=== PATIENT | female | born 1950 | race Caucasian/White ===

== ENCOUNTER 2019-12-06 07:45 | Outpatient (CLI) | payer MEDICARE, SELFPAY ==
--- NOTE | 2019-12-06 07:50 | MM_ITS ---
WS: [id number] BILATERAL SCREENING DIGITAL MAMMOGRAM WITH CAD HISTORY: SCREENING COMPARISON: 06/14/2013 Bilateral CC and MLO views submitted. Computer aided detection analyzed. Breast composition: There are scattered areas of fibroglandular density. No suspicious masses, microc alcifications or architectural distortion. MM/[place] [id number] IMPRESSION: BI-RADS: 1-Negative FOLLOW UP: 1 Year Follow-up
== END 2019-12-06 07:46 | disposition home or self-care (01) ==
LOC: RADSHAW 07:49
PROVIDERS: PCP Family Medicine; Visit Provider Family Medicine
DX: Z12.31 Encounter for screening mammogram for malignant neoplasm of breast (principal)
CPT/HCPCS: 77067

== ENCOUNTER → 2020-04-04 16:02 | Outpatient (BNVA) | payer MEDICARE, SELFPAY | PROVIDERS: PCP Family Medicine; Visit Provider Nurse Practitioner Women's Health | DX: N90.3 Dysplasia of vulva, unspecified (principal); N76.3 Subacute and chronic vulvitis | CPT/HCPCS: 88305 ==

== ENCOUNTER 2020-08-08 13:11 | Outpatient (CLI) | payer MEDICARE, SELFPAY ==
--- NOTE | 2020-08-08 13:34 | XRR_ITS ---
PROCEDURE INFORMATION: Exam: XR Right Knee Exam date and time: 08/08/2020 1:57 PM Age: 70 years old Clinical indication: Knee; Right; Prior surgery; Surgery type: Meniscal tear; Patient HX: Fall in February, no pain then; Additional info: R knee pain TECHNIQUE: Imaging protocol: XR Right knee. Views: 3 views. COMPARISON: No relevant prior studies available. FINDINGS: Bones/joints: Mild degenerative change. No acute bony injury or malalignment. Soft tissues: Unremarkable. XR/XR knee RT 3V* [id number] IMPRESSION: Mild degenerative change.
== END 2020-08-08 13:12 | disposition home or self-care (01) ==
LOC: RAD 13:25
PROVIDERS: PCP Family Medicine; Visit Provider Family Medicine
DX: M25.561 Pain in right knee (principal)
CPT/HCPCS: 73562

== ENCOUNTER 2020-11-02 10:09 | Outpatient (CLI) | payer MEDICARE, SELFPAY ==
--- NOTE | 2020-11-02 11:00 | MR_ITS ---
WS: [id number] MRI LEFT KNEE HISTORY: LEFT KNEE PAIN;ARTHRITIS COMPARISON: None available. Anterior cruciate ligament: Small amount of fluid around the ACL but no tear. Posterior cruciate ligament: Small amount of fluid around the PCL but no tear. Medial collateral ligament: Increased signal around the MCL distal to the joint. Tear within the deep MCL adjacent to the femoral condyle. The distal superficial MCL is intact. Posterior lateral corner structures: Intact. Medial menisci: Horizontal tear in the posterior horn extends to the inferior articular surface near the free edge. Lateral meniscus: Intact. Normal signal, size and shape. Extensor mechanism: Distal quadriceps tendon and patellar tendons are intact. Fluid and soft tissue: Small suprapatellar joint effusion. No Wills's cyst. Osseous and articular structures: Patellofemoral compartment: Normal cartilage. No subchondral edema. Medial compartment: Very mild narrowing of the medial compartment. Moderate, near diffuse fissuring a nd thinning of the cartilage. Marrow edema in the posterior medial femoral condyle along the nonweigh tbearing surface. Focal osteochondral lesion along the nonweightbearing surface. This is closely asso ciated with the meniscal tear and increased fluid. There is increase fluid extending along the tendon s of the medial knee which may be bursal fluid. Lateral compartment: Minimal narrowing. No subchondral lesions. Small amount of fluid near the popliteal tendon. MR/MR knee LT wo con* [id number] IMPRESSION: 1. Horizontal tear posterior horn medial meniscus. 2. Marrow edema in the posterior nonweightbearing surface of the medial femora l condyle with an associated small osteochondral defect. Closely associated wit h the meniscal tear. 3. Moderate-sized joint effusion. 4. Mild MCL sprain with incomplete tear involving the deep MCL above the knee joint.
== END 2020-11-02 10:10 | disposition home or self-care (01) ==
LOC: RADSHAW 10:13
PROVIDERS: PCP Family Medicine; Visit Provider Family Medicine
DX: M25.562 Pain in left knee (principal); M19.90 Unspecified osteoarthritis, unspecified site; S83.242A Other tear of medial meniscus, current injury, left knee, initial encounter; S83.412A Sprain of medial collateral ligament of left knee, initial encounter; X58.XXXA Exposure to other specified factors, initial encounter; M25.462 Effusion, left knee; R60.0 Localized edema
CPT/HCPCS: 73721

== ENCOUNTER → 2020-12-04 10:58 | Outpatient (BNVA) | payer MEDICARE, SELFPAY | PROVIDERS: PCP Family Medicine; Referring Provider Family Medicine; Visit Provider Specialist | DX: M25.562 Pain in left knee (principal); Z46.89 Encounter for fitting and adjustment of other specified devices; S83.412D Sprain of medial collateral ligament of left knee, subsequent encounter; X58.XXXD Exposure to other specified factors, subsequent encounter | CPT/HCPCS: 73560; 73565; 97760; L1812 ==

== ENCOUNTER 2020-12-04 14:45 | Outpatient (CLI) | payer MEDICARE, SELFPAY | END 2020-12-04 14:46 | disposition home or self-care (01) | LOC: SPT 14:46 | PROVIDERS: PCP Family Medicine; Visit Provider Specialist | DX: Z46.89 Encounter for fitting and adjustment of other specified devices (principal); S83.412D Sprain of medial collateral ligament of left knee, subsequent encounter; X58.XXXD Exposure to other specified factors, subsequent encounter | CPT/HCPCS: 97760; L1812 ==

== ENCOUNTER → 2020-12-25 09:05 | Outpatient (BNVA) | payer MEDICARE, SELFPAY | PROVIDERS: PCP Family Medicine; Visit Provider Specialist | DX: S83.411A Sprain of medial collateral ligament of right knee, initial encounter (principal); M25.561 Pain in right knee; M25.562 Pain in left knee; W19.XXXA Unspecified fall, initial encounter | CPT/HCPCS: 73560; 73565 ==

== ENCOUNTER 2021-01-10 15:32 | Outpatient (CLI) | payer MEDICARE, SELFPAY ==
--- NOTE | 2021-01-10 16:00 | MR_ITS ---
WS: [id number] MRI RIGHT KNEE HISTORY: M25.569 - Pain in unspecified knee, prior injury. Remote medial meniscal tear repair. COMPARISON: 11/06/2010 Anterior cruciate ligament: Mild chronic thinning of the ACL. No acute tear. Posterior cruciate ligament: Intact. Medial collateral ligament: Fluid adjacent to the MCL, greatest below the joint line. Very similar fi ndings as compared to the prior examination from 2010. No new tear. Posterior lateral corner structures: Intact. Medial menisci: Intrasubstance degeneration in the posterior horn. There is mild fraying along the ar ticular surfaces but no definite tear. Lateral meniscus: Intact. Normal signal, size and shape. Extensor mechanism: Distal quadriceps tendon and patellar tendons are intact. Fluid and soft tissue: Small amount of fluid surrounding the knee. No Wills's cyst. Osseous and articular structures: Patellofemoral compartment: Normal. Medial compartment: Severe narrowing medial compartment with loss of cartilage involving a large port ion of the weightbearing surface of the femoral condyle and tibial plateau. There is extensive marrow edema along both sides of the joint. There is enhancement additional defect in the cartilage along t he posterior nonweightbearing surface of the medial femoral condyle with subchondral edema. Lateral compartment: Mild narrowing of lateral compartment. No full-thickness cartilage defects or ma rrow edema. MR/MR knee RT wo con* [id number] IMPRESSION: 1. Moderate intrasubstance degeneration in the posterior horn medial meniscus. No definite tear identified. 2. Large amount of marrow edema in the medial femoral condyle and tibial plate au with extensive loss of cartilage and joint space narrowing. 3. Additional cartilage defect with subchondral edema in the posterior nonweig htbearing surface medial femoral condyle. 4. Mild sprain MCL.
== END 2021-01-10 15:33 | disposition home or self-care (01) ==
LOC: RADSHAW 15:34
PROVIDERS: PCP Family Medicine; Visit Provider Specialist
DX: S83.411A Sprain of medial collateral ligament of right knee, initial encounter (principal); X58.XXXA Exposure to other specified factors, initial encounter; R60.0 Localized edema
CPT/HCPCS: 73721

== ENCOUNTER → 2021-05-23 14:45 | Outpatient (BNVA) | payer MEDICARE, SELFPAY | PROVIDERS: PCP Family Medicine; Visit Provider Specialist | DX: M17.11 Unilateral primary osteoarthritis, right knee (principal); M25.561 Pain in right knee; M25.461 Effusion, right knee | CPT/HCPCS: 73560; 73565 ==

== ENCOUNTER → 2021-08-23 09:55 | Outpatient (BNVA) | payer MEDICARE, SELFPAY | PROVIDERS: PCP Family Medicine; Visit Provider Specialist | DX: M17.11 Unilateral primary osteoarthritis, right knee (principal) | CPT/HCPCS: 20610; 99213; 99214; J1100; J2795; J3301 ==

== ENCOUNTER → 2021-09-26 14:27 | Outpatient (BNVA) | payer MEDICARE, SELFPAY | PROVIDERS: PCP Family Medicine; Visit Provider Specialist | DX: M17.11 Unilateral primary osteoarthritis, right knee (principal) | CPT/HCPCS: 99214 ==

== ENCOUNTER 2021-10-09 13:40 | Observation (INO) | payer MEDICARE, SELFPAY ==
--- NOTE | 2021-10-05 08:21 | ECG_ITS ---
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 Measurements Intervals [place] Rate: 62 P: 61 ND: 174 QRS: 25 QRSD: 89 T: 62 QT: 411 QTc: 418 Interpretive Statements SINUS RHYTHM WITH OCCASIONAL VENTRICULAR PREMATURE COMPLEXES No previous ECG available for comparison Electronically Signed On 10-05-2021 17:02:46 CDT by Salvador Costello M.D. [id number]
[2021-10-05 08:36] VITALS: BMI 29.7
[2021-10-05 08:56] LABS: Add Urine Microscopic? NO
[2021-10-05 09:08] LABS: Urine Appearance Clear (CLEAR); Urine Color Yellow (Yellow); pH Urine 7 (5-7)
[2021-10-05 09:09] LABS: Bilirubin Urine Neg (Negative); Blood Urine Neg (Negative); Glucose Urine UA Norm (Normal); Ketones Urine Negative (Negative); Leukocyte Esterase Urine Negative (Negative); Nitrate Urine Negative (Negative); Protein Urine Neg (Negative); Urobilinogen Urine Norm (Negative)
[2021-10-05 09:10] LABS: Basophils # 0.1 10^3/uL (0.0-0.1); Basophils % 0.9 %; Eosinophils # 0.1 10^3/uL (0.0-0.8); Eosinophils % 1.1 %; Hematocrit 44.6 % (37.0-47.0); Hemoglobin 14.5 g/dL (11.5-15.3); Lymphocytes % 31.4 %; Mean Corpuscular HGB Conc 32.5 g/dL (30.0-36.0); Mean Corpuscular Hemoglobin 29.6 pg (28.0-34.0); Monocytes # 0.5 10^3/uL (0.2-0.9); Monocytes % 8.2 %; Neutrophils # 3.76 10^3/uL (1.8-7.7); Neutrophils % 58.2 %; Nucleated Red Blood Cells % 0 %; Platelet Count 205 10^3/cmm (130-400); Red Cell Distribution Width 12.6 % (12.1-15.1); White Blood Count 6.5 10^3/uL (4.0-10.0)
--- NOTE | 2021-10-05 09:17 | P.ANESASSM_ITS ---
Pre-Anesthetic Assessment Height/Weight: Height 1.68 m Weight 83.461 kg Preop Diagnosis: Severe degenerative osteoarthritis right knee Operation Date: 10/09/21 07:00 Proposed Procedures p RIGHT TOTAL KNEE ARHTROPLASTY 33293,M17.10(Right) - Yasmine Crain MD Familial anesthetic complications: None Social No alcohol and No tobacco Exam alert, oriented x 3, clear to auscultation bilaterally and regular rate & rhythm Airway Mallampati: Class IV Dentition: full Comments: Comments: poor mouth opening Pulmonary None reported CV/HEM None reported None reported Hepatic None reported GI None reported Metabolic None reported Musc/skel Osteoarthritis/DJD Neuropsych None reported Anesthetic Plan ASA status: 1 Anesthesia: Regional (specify below) Other: spinal + Adductor Risk of > 500 ml blood loss (7ml/kg in children): Yes, adequate IV access and fluids planned Medications/Allergies Home Medications Medication Instructions Recorded Confirmed Last Taken Type alprazolam 0.25 mg tablet 0.25 mg PO TID PRN 02/14/20 10/05/21 Unknown History fluoxetine 10 mg capsule 10 mg PO DAILY 02/14/20 10/05/21 Unknown History prednisolone acetate 1 % eye 1 drp OPHTHALMIC (EYE) BID 09/26/21 10/05/21 Unknown History drops,suspension Allergies Allergy/AdvReac Type Severity Reaction Status Date / Time methotrexate Allergy hives Verified 10/05/21 08:34 [facility] Anesthesia Medical History History of nonmelanoma skin cancer No pertinent past medical history neghx: htn,dm,thyroid,dvt/pe Surgical History Hx of tubal ligation (~1976) Family History Denies family history of Colon cancer Ovarian cancer Diabetes Hypercholesteremia Breast cancer Hypertension Uterine cancer Thyroid disease Stroke Social History Smoking and tobacco status: never smoked Additional social history: - Tobacco use: denies Alcohol use: denies Drug use: denies Data Anesthesia : 10/05/21 08:55 10/05/21 08:55 Short CBC 10/05/21 Range/Units 08:55 WBC 6.5 (4.0-10.0) 10^3/uL Hgb 14.5 (11.5-15.3) g/dL Hct 44.6 (37.0-47.0) % MCV 91.0 (81-99) fl Plt Count 205 (130-400) 10^3/cmm Neut % (Auto) 58.2 % Neut # (Auto) 3.76 (1.8-7.7) 10^3/uL Urine 10/05/21 Range/Units 08:43 Urine Color Yellow (Yellow) Urine Appearance Clear (CLEAR) Urine pH 7 (5-7) Ur Specific [place] 1.010 (1.005-1.030) Urine Protein Neg (Negative) Urine Glucose (UA) Norm (Normal) Urine Ketones Negative (Negative) Urine Nitrate Negative (Negative) Urine Bilirubin Neg (Negative) Ur Leukocyte Esterase Negative (Negative) Cardiac Studies: No Data to Display
[2021-10-05 09:34] LABS: Alanine Aminotransferase 13 U/L (0-33); Albumin Level 4.3 g/dL (3.5-5.2); Alkaline Phosphatase 72 IU/L (35-105); Aspartate Amino Transferase 18 U/L (0-32); Blood Urea Nitrogen 12 mg/dL (8-23); Calcium 9.3 mg/dL (8.5-10.5); Carbon Dioxide 25 mmol/L (22-29); Chloride 103 mmol/L (98-107); Globulin 2.5 g/dL (1.3-4.6); Glomerular Filtration Rate 70.9 mL/min (90-130); Glucose 86 mg/dL (65-115); Osmolality Calculated 285 mOsm/kg (285-295); Sodium 138 mmol/L (136-145); Total Bilirubin 1.4 mg/dL (0.15-1.2); Total Protein 6.8 g/dL (6.6-8.7)
[2021-10-05 09:42] LABS: Anion Gap 14.3 (5-19); Potassium 4.3 mmol/L (3.5-5.1)
[2021-10-05 09:50] LABS: Charge for UA Resulting for Rev
[2021-10-09] VITALS (19 sets, daily range): BP systolic 107–167; BP diastolic 57–81; PULSE 50–78; RESP 12–18; TEMP 36.1–37.1; O2SAT 94–98
[2021-10-09] MEDS: acetaminophen 1,000 MG/100 ML PIGGYBACK 400 MG IV ×3 (05:53→20:21)
[2021-10-09] MEDS: sodium chloride 0.9% 1,000 ML 30 ML IV (05:55)
[2021-10-09] MEDS: CELEcoxib 200 mg Capsule 400 MG PO (05:56)
--- NOTE | 2021-10-09 06:48 | P.ANESUD_ITS ---
Pre-Anesthetic Update Pre-Anesthetic Assessment: Date of Surgery/Procedure: 10/09/21 Preop Evelyn gnosis: Severe degenerative osteoarthritis right knee Proposed Procedure: Operation Date: 10/09/21 07:00 Proposed Procedures p RIGHT TOTAL KNEE ARHTROPLASTY 60093,M17.10(Right) - Yasmine Crain MD Any changes to Pre-Anesthetic Assessment?: No Last Intake: Intake Last Liquid Date 10/09/21 Last Liquid Time 04:30 Last Solid Date 10/09/21 Last Solid Time 19:30 Vitals: Temperature 98.8 F 10/09/21 05:39 Temperature Source Temporal Artery S can 10/09/21 05:39 Pulse Rate 70 10/09/21 05:39 Respiratory Rate 18 10/09/21 05:39 Blood Pressure 134/75 10/09/21 05:39 Blood Pressure Cayla n 94 10/09/21 05:39 Pulse Oximetry 95 10/09/21 05:39 Oxygen Delivery Me thod 10/09/21 05:45 Exam: Pre-Anes Outpt Exam: alert, oriented x 3, clear to auscultation bilaterally and regular rate & rhythm Cardiac Studies: No Data to Display
--- NOTE | 2021-10-09 06:55 | P.HPUD_ITS ---
Surgery/Procedure H&P Update DATE OF PROCEDURE: October 09, 2021 DATE H&P PERFORMED: 09/26/21 H&P UPDATE INFORMATION: I have reviewed H&P completed within last 30 days, I have examined patient prior to procedure, No changes to prior documentation and H&P is in [facility] EMR on date indicated PREOP DIAGNOSIS: Severe degenerative osteoarthritis right knee PLANNED PROCEDURE: Operation Date: 10/09/21 07:00 Proposed Procedures p RIGHT TOTAL KNEE ARHTROPLASTY 23297,M17.10(Right) - Yasmine Crain MD Related Problem List Diagnoses (1) Osteoarthritis of right knee: Qualifiers: Osteoarthritis type: primary Qualified Code(s): M17.11 - Unilateral primary osteoarthritis, right knee
[2021-10-09] MEDS: vancomycin 1,000 MG SDV 1000 MG XX (08:15)
[2021-10-09] MEDS: tranexamic acid 1,000 mg/10mL SDV 1000 MG IRRIGATION (08:16)
[2021-10-09] MEDS: ceFAZolin 1,000 mg SDV 1000 MG IRRIGATION (08:18)
[2021-10-09] MEDS: sodium chloride 0.9% 100 mL Bag 50 ML XX (08:21)
--- NOTE | 2021-10-09 10:19 | XRR_ITS ---
PROCEDURE INFORMATION: Exam: XR Right Knee Exam date and time: 10/09/2021 10:24 AM Age: 71 years old Clinical indication: Device placement; Joint replacement hardware; Prior surgery; Surgery date: Post-operative (0-2 days); Surgery type: Tka; Additional info: S/P tka TECHNIQUE: Imaging protocol: XR Right knee. Views: 1 or 2 views. COMPARISON: CR XR knees AP WB w RT lmt ORTH 05/23/2021 2:53 PM FINDINGS: Bones/joints: Right total knee arthroplasty without periprosthetic fracture or osteolysis. No acute fracture or malalignment. Small joint effusion with expected postoperative intra-articular emphysema. Soft tissues: Expected postoperative subcutaneous emphysema. XR/XR knee RT 1-2V [id number] IMPRESSION: 1. Right total knee arthroplasty without periprosthetic fracture or osteolysis. 2. No acute fracture or malalignment. 3. Small joint effusion.
--- NOTE | 2021-10-09 10:24 | ANE.PACU2 ---
Inpatient post-anesthesia follow up: Airway intact: Yes Vital signs: Temperature 97.4 F Pulse Rate 56 Respiratory Rate 16 Blood Pressure 129/75 Pulse Oximetry 97 Oxygen Delivery Me thod Room Air Oxygen Flow Rate Fraction of Inspir ed Oxygen Hydration adequate: Yes Nausea and vomiting: No Pain level: 1 Mental status: Baseline
--- NOTE | 2021-10-09 10:25 | ANES.PROC ---
Anesthesia Procedures Procedure/Date: 10/09/21 Nerve Block ^: Nerve Block 1: Main Anesthesia: spinal anesthesia block Time Out Performed: Yes Consent: requested by attending/covering physician, from patient, risks and benefits reviewed and patient agrees to proceed Nerve block location: adductor canal (right) Anesthesia monitors applied: pulse oximetry, EKG, BP cuff and oxygen Nerve block position: supine Anesthetic Used: ropivicaine 0.5% Amount of anesthesia used (mL): 20 Ultrasound used to: recognize landmarks Nerve Stimulator Used?: No Interscalene/Femoral BLK: 4 stimuplex 21 g needle used for position and inplane approach Injection: neg aspiration of heme Patient Tolerated Procedure: well Complications: none
--- NOTE | 2021-10-09 10:34 | P.OP_ITS ---
Operative Report Date of procedure: October 09, 2021 Pre-op diagnosis: Severe degenerative osteoarthritis right knee Post-op diagnosis: Severe degenerative osteoarthritis right knee Post-op findings: Severe degenerative osteoarthritic change right knee with complete cartilage obliteration of femoral condyle Procedure done: Right total knee arthroplasty Implants: The [place] total knee system with a size 4 triathlon beaded posterior stabilized femur right, a triathlon titanium tibial component size 3 beaded, a triathlon X3 posterior stabilized tibial bearing insert size 3 X 13 mm and a beaded triathlon titanium asymmetric patella size 35 x 10 mm Specimens removed/disposition: Bone, disposed of Surgeon: Yasmine Crain Coat Ironer Hand: [facility] operating room technicians Anesthesia: MAC (With spinal, ASA 2) Estimated blood loss (mL): 25 Tourniquet time (min): 105 (At 250 mmHg) IV fluids (mL): 800 Urine output (mL): 150 Complications: None Brief History: This is an established 71 year old female patient here today for right total knee arthroplasty. The patient has had significant conservative therapies with lack of benefit. Date of last injection was 08/23/2021. She rates her pain 5/10 routinely. As injection therapy was less successful for her, discussion was undertaken at the office visit on September 26, and the patient elected to proceed with total knee arthroplasty. Risks and complications were discussed with her. Consents were signed and questions were answered. Procedure: The patient was brought to the operating theater, and after undergoing adequate spinal anesthesia supplemented with adductor canal block and MAC, ASA 2, the right lower extremity was prepped with Dura-Prep and draped in usual fashion following placement of a tourniquet high on the leg. The leg was then draped free. Following prepping and draping, the leg was exsanguinated, and the tourn iquet was elevated to 250 mmHg for a total tourniquet time of 105 minutes.? Prior to elevation of the tourniquet, but following exposure of the site of surgery, a surgical pause was performed. At the time of the surgical pause, we confirmed the site and side of surgery. Additionally, we confirmed the appropriate and timely administration of preoperative antibiotics, Ancef 2 g and Transexemic acid 1 g.? The availability of equipment was confirmed, and the patient's identity was verbalized as well. Following the surgical pause, an incision was made centering over the patella continuing proximally and distally as necessary to allow access to the knee joint. Dissection continued through skin and soft tissues using a scalpel. Hemostasis was obtained using electrocautery. The skin incision was followed by a median parapatellar arthrotomy. The leg was extended and the patella was everted. Following this, the leg was returned to flexed position.? The distal femur was exposed, and a drill hole was made in this for placement of the distal femoral jig. The distal femoral jig was set at 5? of valgus. The distal femoral cutting block was then placed in appropriate position, and an ignacia wing was used to confirm an appropriate amount of distal femur would be resected.? The distal femoral resection was accomplished with 8 mm of bone being resected distally.? After the distal femoral resection was accomplished, the femur was measured, and it measured a size 4.? Medial lateral dimension also measured a size 4.? A size 4 femoral cutting block was placed in position, and we were then able to accomplish the anterior, posterior and chamfer cuts. This jig was then removed, and the notch guide was placed in position. With the notch guide in appropriate position, the notch was excised including resection of the anterior and posterior cruciate ligaments. This notch was to allow for the posterior stabilized femoral component. At this point, the femur was prepared and attention was directed to the proximal tibia.? The posterior knee retractor was placed along with medial and lateral retractors. Further resection of the menisci was accomplished as we had better visualization. A complete meniscectomy was performed both medially and laterally with care being taken to protect the popliteus. Retractors were then placed so that the proximal tibia was well visualized. A drill hole was then made in the tibia for placement of the intramedullary guide. This guide was placed so that approximately 2 mm of bone would be resected from the deficient medial tibial plateau. The intramedullary guide was utilized supplemented with an extramedullary guide to assure appropriate alignment for the proximal tibial resection. The proximal tibial jig was then evaluated, pinned in position, and the proximal tibial resection was accomplished without difficulty. The jig was removed, and the proximal tibia was measured. It measured a size 3. We then attempted a trial reduction with a size 3 by 11 mm.? Osteophytes were also removed from the tibia, and a medial release was accomplished.? The femoral component was placed in position for the trial reduction, and the knee was placed through range of motion.? The tibial trial was then increased to a size 3 x 13 mm. With this, there was appropriate patellar tracking. Extension was noted to be full as well.? With this we had excellent varus valgus alignment.? The knee was stable to varus valgus stress as well.? Therefore, this was the chosen component.? There was full extension and flexion without lift off and the rotation of the tibia was marked.? Alignment was checked from the hip to the ankle, and this was noted to be appropriate as well. Attention was then directed to the patella. The patella was measured with a caliper.? We resected sufficient patella to leave approximately 14 mm of patella remaining.? Measurements of the patella then indicated that a size asymmetric 35 mm x 10 mm was the appropriate patellar size. We then placed the jig to drill for the 3 pegs of the press-fit patella, and these drill holes were made without incident. A trial patella was then placed, and the knee was placed through range of motion. The patella was noted to track nicely without evidence of subluxation.? The femur was prepared for a press-fit femur by drilling 2 holes for the femoral pegs.? All trial components were subsequently removed. The tibial tray was then pinned into position, and we broached the tibia for the stem of the tibial component.? Subsequently, 4 drill holes were made for placement of the press-fit tibia.? This was accomplished without difficulty. Care was taken to assure appropriate rotation of the tibia as well as appropriate position on the proximal tibia. The tibial tray was completely seated on the proximal tibia. Following broaching, the tibial guide was removed, and all surfaces were copiously irrigated. The surfaces were then dried and a bone plug was placed into the distal femur.? Exparel was also subsequently injected. The Tritanium tibia was impacted into position.? The beaded femur was then impacted into position in a cementless fashion. The tibial insert was placed. The patella was pressed into position with a patellar clamp.? The knee was then copiously irrigated with betadine and saline and suctioned dry. Attention was then directed to closure. Closure was accomplished with 0 Vicryl in the fascial tissues.? Following this, a 2-0 Monocryl was used in the subcutaneous tissues, and the skin was closed with skin ayad.? Care was taken to assure an excellent subcutaneous as well as skin closure.? A sterile dressing was then placed consisting of Dermabond Prineo, Telfa, OpSite, sterile soft roll including over the foot, and an Gonzalez wrap. The patient was returned the Recovery Room in a satisfactory condition. X-rays were obtained and reviewed there.? The patient will be discharged to the floor for postoperative rehabilitation and pain management. Related Problem List Diagnoses (1) Status post total right knee replacement not using cement: Date of Surgery: October 09, 2021 Diagnosis: Severe degenerative osteoarthritis right knee ?? Procedure done: Right total knee arthroplasty Implants: The [place] total knee system with a size 4 triathlon beaded posterior stabilized femur right, a triathlon titanium tibial component size 3 beaded, a triathlon X3 posterior stabilized tibial bearing insert size 3 X 13 mm and a beaded triathlon titanium asymmetric patella size 35 x 10 mm (2) Osteoarthritis of right knee:
[2021-10-09] MEDS: CELEcoxib 200 mg Capsule PO ×2 (13:54→22:26)
[2021-10-09] MEDS: oxyCODONE 5 mg IR Tab/Cap PO ×2 (13:54→22:26)
[2021-10-09] MEDS: chlorhexidine gluconate 0.12% Btl 473 mL 30 ML MUCOUS MEM ×3 (13:55→20:21)
[2021-10-09] MEDS: ondansetron 2 mg/ML SDV 2 mL 4 MG IVP (15:01)
[2021-10-09] MEDS: sennosides-docusate Tablet 2 TAB PO (17:32)
[2021-10-09] MEDS: iron polysaccharide complex 150 mg Capsule PO (17:32)
[2021-10-09] MEDS: calcium carbonate 500 mg Chew Tablet 1000 MG PO (17:32)
[2021-10-09] MEDS: mupirocin oint 22 gm 1 APPLIC NASAL (17:42)
--- NOTE | 2021-10-09 17:51 | PC.NURSE ---
CPM removed at 1745 per PT.
[2021-10-09] MEDS: prednisoLONE 1% Op Susp 5 mL Btl 1 DROP EYE-RIGHT (22:25)
[2021-10-10] VITALS (8 sets, daily range): BP systolic 95–128; BP diastolic 58–73; PULSE 59–82; RESP 17–18; TEMP 36.7–36.9; O2SAT 92–97
[2021-10-10 04:46] LABS: Basophils % 0.3 %; Hematocrit 35.8 % (37.0-47.0); Hemoglobin 12.2 g/dL (11.5-15.3); Lymphocytes # 1.5 10^3/uL (0.8-4.8); Lymphocytes % 15.9 %; Mean Corpuscular HGB Conc 34.1 g/dL (30.0-36.0); Mean Corpuscular Hemoglobin 29.5 pg (28.0-34.0); Mean Corpuscular Volume 86.7 fl (81-99); Mean Platelet Volume 11.8 fL (7.4-10.4); Monocytes # 1.1 10^3/uL (0.2-0.9); Monocytes % 11.6 %; Neutrophils # 6.54 10^3/uL (1.8-7.7); Nucleated Red Blood Cells % 0 %; Platelet Count 179 10^3/cmm (130-400); Red Blood Count 4.13 10^6/uL (4.1-5.3); Red Cell Distribution Width 13.1 % (12.1-15.1); White Blood Count 9.1 10^3/uL (4.0-10.0)
[2021-10-10 05:02] LABS: Anion Gap 12.3 (5-19); Blood Urea Nitrogen 13 mg/dL (8-23); Carbon Dioxide 25 mmol/L (22-29); Chloride 101 mmol/L (98-107); Glomerular Filtration Rate 61.9 mL/min (90-130); Glucose 129 mg/dL (65-115); Osmolality Calculated 280 mOsm/kg (285-295); Potassium 4.3 mmol/L (3.5-5.1); Sodium 134 mmol/L (136-145)
[2021-10-10] MEDS: acetaminophen 1,000 MG/100 ML PIGGYBACK 400 MG IV (05:05)
[2021-10-10] MEDS: ALPRAZolam 0.5 mg Tablet 0.25 MG PO ×2 (05:12→18:05)
[2021-10-10] MEDS: fluoxetine 10 mg Capsule PO (09:04)
[2021-10-10] MEDS: sennosides-docusate Tablet 2 TAB PO ×2 (09:04→17:20)
[2021-10-10] MEDS: acetaminophen 500 mg Tablet 1000 MG PO ×2 (09:05→17:19)
[2021-10-10] MEDS: cholecalciferol (vitamin D3) 1,000 unit Tablet 1000 UNIT PO (09:05)
[2021-10-10] MEDS: aspirin 325 mg EC Tablet PO (09:05)
[2021-10-10] MEDS: multivitamin therapeutic Tablet 1 TAB PO (09:05)
[2021-10-10] MEDS: iron polysaccharide complex 150 mg Capsule PO ×2 (09:07→17:20)
[2021-10-10] MEDS: calcium carbonate 500 mg Chew Tablet 1000 MG PO (09:07)
[2021-10-10] MEDS: mupirocin oint 22 gm 1 APPLIC NASAL ×2 (09:14→17:20)
[2021-10-10] MEDS: prednisoLONE 1% Op Susp 5 mL Btl 1 DROP EYE-RIGHT ×2 (09:16→17:20)
[2021-10-10] MEDS: chlorhexidine gluconate 0.12% Btl 473 mL 30 ML MUCOUS MEM ×4 (09:18→22:31)
--- NOTE | 2021-10-10 11:04 | PC.CHAP ---
Pastoral Care Encounter/Spiritual Assessment Type of Contact [] Declined linux unix engineer visit [] Patient/Family/Request visit [] Outpatient visit [] Follow-up visit [] Physician referral [] Code/Alert [x] Routine visit [] Staff referral [] Actively dying [] Patient sleeping [] Family support [] [] Out of room [] Palliative care [] [] Receiving care in room [] Pre-surgical visit [] Trauma [] Long length of stay [] ICU visit [] Other: Relational/Emotional Strength [x] Patient feels connected with others/family/visitors/staff [] Distress [] Loneliness/isolation [] Abandonment Spirituality of Patient [x] Person of Lorna [] Attends Zoroastrianism of their Lorna [x] Believes in Prayer [] Reads Bible or Restoration materials [] There are Spiritual issues to be addressed Power Cleaner Operator Interventions [x] Prayer [] Active listening [x] Non-anxious presence [] Spiritual/emotional support [] Crisis/trauma care [] Spiritual counseling [] Bereavement support [] Provided bereavement packet [] Provided Bible/devotional materials [] Provided toy/stuffed animal, coloring book to patient or family member [] Provided Communion [] Anointing/[place] [] Salvation [x] Completed spiritual assessment [] Other: Impact on Illness or Injury [] Angry [] Fearful [] Anxious [] Often cries [] Exhaustion [] Unable to work [] Unable to attend jehovah's witness [] Unable to walk/stand [] Unable to read [] Unable to drive [] Unable to eat/drink [] Unable to sleep [] Unable to be with family [] Patient intubated [] Other: Summary Time spent with patient 10 nmin
[2021-10-10] MEDS: CELEcoxib 200 mg Capsule PO (12:10)
[2021-10-10] MEDS: ondansetron 2 mg/ML SDV 2 mL 4 MG IVP (12:11)
[2021-10-10] MEDS: oxyCODONE 5 mg IR Tab/Cap PO (13:27)
--- NOTE | 2021-10-10 13:40 | ECG_ITS ---
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 Measurements Intervals [place] Rate: 67 P: 93 AK: 182 QRS: 28 QRSD: 99 T: 38 QT: 388 QTc: 412 Interpretive Statements SINUS RHYTHM Compared to ECG 10/05/2021 08:20:12 Ventricular premature complex(es) no longer present Electronically Signed On 10-10-2021 22:23:11 CDT by Mena Lay M.D. [email or web address]
--- NOTE | 2021-10-10 13:42 | PM.CONSULT ---
Providers/Reason For Consult Consulting Physician/Specialty*: Hospitalist Reason for Consult*: Low blood pressure Attending Physician: Yasmine Crain MD Primary Care Provider: Den Urbina DO History of Present Illness History of Present Illness Susie Gonzales is a 71 year old female who was admitted to the hospital for her right knee surgery. Hospital service was requested postop day 1 when she was found to have low blood pressure. Patient is stating that at home she does not take any antihypertensive regimen, she has never has been diagnosed with adrenal insufficiency or thyroid abnormality. At the time of my interview she is feeling fine no active chest pain shortness of breath diarrhea or headache. She is not complaining of associated pain. I have requested a bolus, EKG, lactic acid, cortisol level, troponin Review of Systems Const: Denies: fever(s) Eyes: Denies: change in vision ENMT: Denies: throat pain Card: Denies: chest pain Resp: Denies: dyspnea GI: Denies: abdominal pain : Denies: flank pain Musc: Denies: neck pain Skin/Breast: Denies: rash Neuro: Denies: headache(s) Psych: Denies: anxiety Endo: Denies: polyuria Capo/Lymph: Denies: easy bruising All/Imm: Denies: urticaria Medications/Allergies Home Medications Medication Instructions Recorded Confirmed Last Taken Type alprazolam 0.25 mg tablet 0.25 mg PO TID PRN 02/14/20 10/09/21 10/09/21 History fluoxetine 10 mg capsule 10 mg PO DAILY 02/14/20 10/05/21 Unknown History prednisolone acetate 1 % eye 1 drp OPHTHALMIC (EYE) BID 09/26/21 10/09/21 10/09/21 History drops,suspension Allergies Allergy/AdvReac Type Severity Reaction Status Date / Time methotrexate Allergy hives Verified 10/05/21 08:34 Current Medications Generic Name Dose Route Start Last Admin Trade Name Freq PRN Reason Stop Dose Admin Acetaminophen 1,000 mg 10/10/21 10:30 10/10/21 09:05 Acetaminophen 500 Mg Tablet PO 1,000 mg Q8H GLORIA Administration Alprazolam 0.25 mg 10/09/21 13:06 10/10/21 05:12 Alprazolam 0.5 Mg Tablet PO 0.25 mg TID PRN Administration Anxiety Aspirin 325 mg 10/10/21 09:00 10/10/21 09:05 Aspirin 325 Mg Ec Tablet PO 325 mg DAILY GLORIA Administration Calcium Carbonate 1,000 mg 10/09/21 18:00 10/10/21 09:07 Calcium Carbonate 500 Mg Chew Tablet PO 1,000 mg BID GLORIA Administration Celecoxib 200 mg 10/09/21 13:06 10/10/21 12:10 Celecoxib 200 Mg Capsule PO 200 mg Q12H GLORIA Administration Chlorhexidine Gluconate 30 ml 10/09/21 13:06 10/10/21 12:11 Chlorhexidine Gluconate 0.12% Btl 473 Ml MUCOUS MEM 30 ml QID GLORIA Administration Fluoxetine HCl 10 mg 10/10/21 09:00 10/10/21 09:04 Fluoxetine 10 Mg Capsule PO 10 mg DAILY GLORIA Administration Multivitamins Therapeutic 1 tab 10/10/21 09:00 10/10/21 09:05 Multivitamin Therapeutic Tablet PO 1 tab DAILY GLORIA Administration Mupirocin 1 applic 10/09/21 18:00 10/10/21 09:14 Mupirocin Oint 22 Gm NASAL 10/14/21 17:59 1 applic BID GLORIA Administration Protocol Ondansetron HCl 4 mg 10/09/21 13:06 10/10/21 12:11 Ondansetron 2 Mg/Ml Sdv 2 Ml IVP 4 mg Q6H PRN Administration NAUSEA AND VOMITING Oxycodone HCl 5 mg 10/09/21 13:06 10/10/21 13:27 Oxycodone 5 Mg Ir Tab/Cap PO 5 mg Q4H PRN Administration MODERATE PAIN Polysaccharide Iron Complex 150 mg 10/09/21 18:00 10/10/21 09:07 Iron Polysaccharide Complex 150 Mg Capsule PO 150 mg BIDWM GLORIA Administration Prednisolone Acetate 1 drop 10/09/21 18:00 10/10/21 09:16 Prednisolone 1% Op Susp 5 Ml Btl EYE-RIGHT 1 drop BID GLORIA Administration Senna/Docusate Sodium 2 tab 10/09/21 18:00 10/10/21 09:04 Sennosides-Docusate Tablet PO 2 tab BID GLORIA Administration Vitamin D 1,000 unit 10/10/21 09:00 10/10/21 09:05 Cholecalciferol (Vitamin D3) 1,000 Unit Tablet PO 1,000 unit DAILY GLORIA Administration PFSH Acute PFSH: Medical History 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 Medial meniscus, posterior horn derangement No pertinent past medical history neghx: htn,dm,thyroid,dvt/pe Osteoarthritis of right knee Pes anserine bursitis Surgical History Hx of tubal ligation (~1976) Family History Denies family history of Colon cancer Ovarian cancer Diabetes Hypercholesteremia Breast cancer Hypertension Uterine cancer Thyroid disease Stroke Social History Smoking and tobacco status: never smoked Additional social history: - Tobacco use: denies Alcohol use: denies Drug use: denies Vitals/I&O/Wt Last Vital Signs Temp 98.2 F 10/10/21 11:16 Pulse 80 10/10/21 13:37 Resp 18 10/10/21 13:37 BP 105/64 10/10/21 11:16 Pulse Ox 95 10/10/21 13:37 10/09/21 10/10/21 10/10/21 22:59 06:59 14:59 Intake Total 437 / 997 150 / 1147 600 / 600 Balance 437 / 522 150 / 672 600 / 600 Physical Exam Narrative: Patient is very pleasant and cooperative Saturating well on room air Abdomen is soft Nonfocal neuro exam No excruciating pain of her right knee Right knee is braced and immobilizer Right leg is swollen More swollen as compared to left No active excruciating pain She is saturating well on room air no audible stridor or wheezing Urinary Catheter Management: Cary: Cath Placed During This Visit: yes, but has since been removed by the nurse Reason for Continuing Indwelling Catheter: Perioperative Use in Selected Surgeries Urinary Catheter Date of Insertion: 10/09/21 Urinary Catheter Time of Insertion: 07:20 Date Urinary Catheter Removed: 10/10/21 Time Urinary Catheter Discontinued: 06:14 Data : 10/10/21 04:02 10/10/21 04:02 A&P Assessment and plan (1) Status post total right knee replacement not using cement: Status: Acute (2) Hypotension: Status: Acute (3) Post-operative state: Status: Acute Plan Postop day 1 Patient stating she does not take any antihypertensive at home She does not know her systolic blood pressure range Currently she is asymptomatic No active chest pain shortness of breath denying diarrhea, vomiting however she was nauseous this morning She received anxiolytic this morning I will go ahead and give her LR bolus Check TSH and cortisol level, requested twelve-lead ECG troponin and lactic acid H&H is stable Will follow-up with the [facility] nurses to see the response a lot of fluids I will also request for D-dimer, right leg is swollen Her DVT prophylaxis as per orthopedics Consult Attestations Medical Necessity Statement: As per Ortho Time Spent in Patient Care: 30 Coding Level of Care Code Acute Clinical Cytogenetics Director for Cris Wyatt Diagnoses Status post total right knee replacement not using cement Z96.651 Hypotension I95.9 Post-operative state Z98.890
[2021-10-10] MEDS: lactated ringers 500 ML 999 ML IV (14:10)
[2021-10-10 15:01] LABS: Troponin T (5th) Once 9 ng/L (0-10)
[2021-10-10 15:02] LABS: Lactate (Lactic Acid level) 1.9 mmol/L (0.5-2.2)
[2021-10-10 15:02] LABS: Thyroid Stimulating Hormone 1.26 uIU/mL (0.27-4.20)
--- NOTE | 2021-10-10 17:09 | ANE.PACU2 ---
Inpatient post-anesthesia follow up: Airway intact: Yes Vital signs: Temperature 98.1 F Pulse Rate 82 Respiratory Rate 18 Blood Pressure 102/65 Pulse Oximetry 97 Oxygen Delivery Me thod Room Air Oxygen Flow Rate Fraction of Inspir ed Oxygen Hydration adequate: Yes Nausea and vomiting: No Pain level: 1 Mental status: Baseline
--- NOTE | 2021-10-10 17:16 | P.PN_ITS ---
Subjective Subjective: Patient is doing well from an orthopedic perspective following total knee arthroplasty. She has had significant issues with orthostatic hypotension. Medications: Reviewed: Yes Vitals/I&O/Wt Last Vital Signs Temp 98.1 F 10/10/21 15:35 Pulse 82 10/10/21 15:35 Resp 18 10/10/21 15:35 BP 102/65 10/10/21 15:35 Pulse Ox 97 10/10/21 15:35 10/10/21 10/10/21 10/10/21 06:59 14:59 22:59 Intake Total 150 / 1147 1100 / 1100 Balance 150 / 672 1100 / 1100 Physical Exam Const: COMMON NORMALS: no acute distress, average body habitus, patient oriented x3 and alert GENERAL APPEARANCE: cooperative and comfortable ORIENTATION/CONSCIOUSNESS: Yes awake HENMT: COMMON NORMALS: normocephalic and atraumatic HEAD & SCALP: normocephalic and atraumatic Eye: GENERAL EYE: appearance normal, both eyes and all related structures Chest: COMMONS NORMALS: normal inspection of the chest Resp: COMMON NORMALS: normal respiratory effort EFFORT & INSPECTION: Yes able to speak in complete sentences and Yes symmetric chest movement Extremity: RIGHT LOWER EXTREMITY: Yes knee joint Right knee: Yes inspection (Dressing removed, wound benign.), Yes palpation (No evidence of DVT.) and Yes neurovascular exam (Intact distally.) Neuro: COMMON NORMALS: patient oriented x3 SENSORIUM/ORIENTATION: Yes alert Psych: COMMON NORMALS: mental status grossly normal APPEARANCE: Yes grossly normal ATTITUDE: Yes calm and Yes engaged ATTENTION/CONCENTRATION: Yes attention grossly intact Skin: COMMON NORMALS: no rashes or lesions noted GENERAL SKIN EXAM: no rashes or lesions noted Urinary Catheter Management: Cary: Cath Placed During This Visit: yes, but has since been removed by the nurse Reason for Continuing Indwelling Catheter: Perioperative Use in Selected Surger ies Urinary Catheter Date of Insertion: 10/09/21 Urinary Catheter Time of Insertion: 07:20 Date Urinary Catheter Removed: 10/10/21 Time Urinary Catheter Discontinued: 06:14 Data : 10/10/21 04:02 10/10/21 04:02 A&P Assessment and plan (1) Status post total right knee replacement not using cement: The patient worked with physical therapy today, but therapy was limited secondary to orthostatic hypotension. She has stopped pain medications. Medications have been reviewed. H&H is 12.2/35.8. Wound is benign. There is no significant bruising or swelling. She is neurologically intact. She will require an additional day in the hospital and possibly more secondary to inability to participate with therapy secondary to these blood pressure issues. A consult to the hospitalist team was placed. Status: Acute (2) Osteoarthritis of right knee: Status: Inactive Qualifiers: Osteoarthritis type: primary Qualified Code(s): M17.11 - Unilateral primary osteoarthritis, right knee Attestations Medical Necessity Statement*: Patient has limited ability to participate with physical therapy secondary to orthostatic hypotension. 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
[2021-10-10 21:11] LABS: Cortisol Random 2.32 ug/dL (2.47-19.5)
[2021-10-11 01:19] VITALS: BP 135/74; PULSE 76; RESP 18; TEMP 37; O2SAT 94
[2021-10-11] MEDS: CELEcoxib 200 mg Capsule PO ×2 (01:31→14:29)
[2021-10-11] MEDS: acetaminophen 500 mg Tablet 1000 MG PO ×2 (01:31→11:04)
[2021-10-11 04:00] VITALS: BP 117/67; PULSE 72; RESP 18; TEMP 36.6; O2SAT 92
[2021-10-11 08:00] VITALS: BP 133/68; PULSE 85; RESP 16; TEMP 36.7; O2SAT 98
[2021-10-11] MEDS: multivitamin therapeutic Tablet 1 TAB PO (09:34)
[2021-10-11] MEDS: sennosides-docusate Tablet 2 TAB PO (09:35)
[2021-10-11] MEDS: cholecalciferol (vitamin D3) 1,000 unit Tablet 1000 UNIT PO (09:35)
[2021-10-11] MEDS: iron polysaccharide complex 150 mg Capsule PO (09:35)
[2021-10-11] MEDS: calcium carbonate 500 mg Chew Tablet 1000 MG PO (09:35)
[2021-10-11] MEDS: fluoxetine 10 mg Capsule PO (09:35)
[2021-10-11] MEDS: chlorhexidine gluconate 0.12% Btl 473 mL 30 ML MUCOUS MEM ×2 (09:35→14:32)
[2021-10-11] MEDS: mupirocin oint 22 gm 1 APPLIC NASAL (09:35)
[2021-10-11] MEDS: aspirin 325 mg EC Tablet PO (09:35)
[2021-10-11] MEDS: prednisoLONE 1% Op Susp 5 mL Btl 1 DROP EYE-RIGHT (09:35)
[2021-10-11] MEDS: cosyntropin 0.25 mg SDV IVP (10:17)
[2021-10-11 11:03] LABS: D Dimer 2.32 ug/mIFEU (0-0.59)
[2021-10-11] MEDS: ALPRAZolam 0.5 mg Tablet 0.25 MG PO (11:04)
[2021-10-11 11:09] LABS: Cosyntropin Baseline 13.56 mcg/dL
--- NOTE | 2021-10-11 11:10 | USCV_ITS ---
Susie Gonzales Age: 71 Gender: F : 1950 Exam Date: 10/11/2021 15:24 Ordering Phys: Vero Diamond MD Technologist: ODILON Exam Location: [facility] [place] Indication: RLE PAIN AND SWELLING HISTORY: Lower extremity swelling. Lower extremity pain. PROCEDURES: Venous duplex imaging was performed in only the right lower extremity. The following venous structures were evaluated: common femoral vein, profunda vein, proximal portion of the greater saphenous vein, superficial femoral vein, and the popliteal vein. In addition, the posterior tibial and peroneal trunk were evaluated. Serial compression, augmentation maneuvers, and spectral Doppler flow evaluation were performed. FINDINGS: Normal 2-D Doppler and augmentation and compressibility throughout the lower extremity venous structures. Additional imaging through the proximal calf veins also reveals no thrombus. Limited evaluation of the greater saphenous vein is patent with no thrombus. CONCLUSIONS No DVT right lower extremity. Dr. Radha Gordon DO (Electronically Signed) Final Date: 11 October 2021 15:43 S
--- NOTE | 2021-10-11 11:10 | CT_ITS ---
WS: [id number] CT CHEST ANGIOGRAPHY WITH REFORMATS HISTORY: high dimer low bp TECHNIQUE: Contiguous axial images are obtained through the chest during arterial injection of intrav enous contrast. Images are reconstructed to evaluate the pulmonary arteries. MIP imaging also reviewe d. All CT scans at [facility] use at least one of these dose optimization techniques: automat ed exposure control; mA and/or kV adjustment per patient size (includes targeted exams where dose is matched to clinical indication); or iterative reconstruction. CONTRAST: Omnipaque 350; 80 mL IV. DLP: 562.44 mGy.cm COMPARISON: None available. Good opacification of the pulmonary arteries. No filling defect or pulmonary embolism. Normal size pu lmonary artery. No RIGHT heart strain. There is mild enlargement of the cardiac chambers. No pericard ial effusion. Mild atherosclerosis aorta. No dissection or aneurysm. No pericardial or pleural effusi on. No pneumothorax. Soft tissue nodule measures 3 mm in the anterior RIGHT middle lobe. Additional 5 mm nodule at the RIGHT lung base. No pneumonia. No mediastinal or hilar adenopathy. Small hiatal hernia. No adrenal mass. Slight increase in the thoracic kyphosis. No osteoblastic or osteolytic bone disease. CT/CT angio chest PE protcl [id number] IMPRESSION: 1. No pulmonary embolism. 2. Noncalcified RIGHT middle and RIGHT lower lobe pulmonary nodules with the l argest measuring 5 mm. Elective follow-up based upon the patient's history. Wit h low risk of malignancy no follow-up necessary. If there is elevated risk for malignancy consider follow-up chest CT in 6-12 months. 3. Moderate size hiatal hernia.
[2021-10-11 11:28] LABS: Cosyntropin 30 Minute 17.26 mcg/dL
--- NOTE | 2021-10-11 11:31 | PM.PN ---
Subjective Subjective: Ms. Gonzales has responded very well to fluid bolus that we have administered yesterday Her blood work has been unremarkable other than low cortisol level I have requested ACTH stimulation test and high D-dimer which came back high, requested venous Doppler and CTA chest to rule out thromboembolic phenomenon Vitals/I&O/Wt Last Vital Signs Temp 98.1 F 10/11/21 08:00 Pulse 85 10/11/21 08:00 Resp 16 10/11/21 08:00 BP 133/68 10/11/21 08:00 Pulse Ox 98 10/11/21 08:00 10/10/21 10/11/21 10/11/21 22:59 06:59 14:59 Output Total 950 / 950 600 / 1550 Balance -950 / 150 -600 / -450 Physical Exam Narrative: Patient is saturating well on room air No active chest pain Clinically euvolemic No acute distress Right leg swollen extubated left Abdomen soft EOMI, PERRLA Urinary Catheter Management: Cary: Cath Placed During This Visit: yes, but has since been removed by the nurse Reason for Continuing Indwelling Catheter: Perioperative Use in Selected Surgeries Urinary Catheter Date of Insertion: 10/09/21 Urinary Catheter Time of Insertion: 07:20 Date Urinary Catheter Removed: 10/10/21 Time Urinary Catheter Discontinued: 06:14 Data : 10/10/21 04:02 10/10/21 04:02 A&P Assessment and plan (1) Hypotension: Status: Acute Plan Hypotension Likely related to dehydration perioperatively Rule out adrenal insufficiency, low cortisol levels noted, requested ACTH stimulation test High D-dimer requested venous Doppler and CTA chest rule out thromboembolic phenomenon Patient is on high-dose aspirin, will add Lovenox Full code We will be able to see the results of ACTH stimulation test within 60 minutes She might benefit from Dr. Manuel follow-up outpatient We will follow-up with CT chest, if it is unremarkable she can probably be discharged today Attestations Medical Necessity Statement*: As per Ortho Coding Level of Care Code Acute Human Resources Training Manager for Lorieg Yoselin Diagnoses Hypotension I95.9
[2021-10-11 12:00] VITALS: BP 143/75; PULSE 70; RESP 16; TEMP 36.5; O2SAT 96
[2021-10-11 12:20] LABS: Cosyntropin 1 Hour 22.12 mcg/dL
--- NOTE | 2021-10-11 13:19 | PM.DCS ---
Discharge Providers Date of Admission: 10/09/21 13:40 Date of Discharge: October 11, 2021 Attending Provider at Admission: Yasmine Crain MD Attending Provider at Discharge: Yasmine Crain MD Consults: Vero Diamond MD Primary Care Provider: Den Urbina DO Diagnoses at Discharge Discharge Diagnosis (1) Status post total right knee replacement not using cement: Status: Acute (2) Hypotension: Status: Acute Reason for Visit Reason for Visit: Brief History: This is an established 71 year old female patient here today for right total knee arthroplasty.? The patient has had significant conservative therapies with lack of benefit.? Date of last injection was 08/23/2021. She rates her pain 5/10 routinely.? As injection therapy was less successful for her, discussion was undertaken at the office visit on September 26, and the patient elected to proceed with total knee arthroplasty.? Risks and complications were discussed with her.? Consents were signed and questions were answered. Hospital Course Hospital Course Patient presented on October 09, 2021 for right total knee arthroplasty. This was well-tolerated, and postoperatively, the patient was in hospital as observation. On the first postoperative day, the patient had difficulty participating with physical therapy secondary to orthostatic hypotension. Medications were reviewed, and the patient discontinued her pain medications, but she continued to have episodic hypotension. At this point, the medical service was consulted. A fluid bolus was given, and the patient had a good response. She did, however, have some abnormal findings which required further evaluation. This was accomplished by the medical service and the patient was changed to an admitted inpatient status due to requirements for further work-up. On second postoperative day, discussion was undertaken with the hospitalist team. Additionally, discussion was had with the patient. From an orthopedic perspective, she is ready for discharge to home. Pending at the time of this dictation is her CT angiogram as D-dimer was high. Additionally, cortisol work-up was accomplished, and this is pending for final evaluation as well. The patient is to be discharged home with home health after approval by the medical consultation service. Physical Exam Const: COMMON NORMALS: no acute distress, average body habitus, patient oriented x3 and alert GENERAL APPEARANCE: cooperative and comfortable ORIENTATION/CONSCIOUSNESS: Yes awake HENMT: COMMON NORMALS: normocephalic and atraumatic HEAD & SCALP: normocephalic and atraumatic Eye: GENERAL EYE: appearance normal, both eyes and all related structures Chest: COMMONS NORMALS: normal inspection of the chest Resp: COMMON NORMALS: normal respiratory effort EFFORT & INSPECTION: Yes able to speak in complete sentences and Yes symmetric chest movement Extremity: RIGHT LOWER EXTREMITY: Yes knee joint Right knee: Yes inspection (Minimal to no drainage.), Yes palpation (Minimal to no tenderness.) and Yes neurovascular exam (Intact distally, no specific calf tenderness.) and Yes lower leg (Swelling and fullness in the posterior calf, likely consistent with TKA) Neuro: COMMON NORMALS: patient oriented x3 SENSORIUM/ORIENTATION: Yes alert Psych: COMMON NORMALS: mental status grossly normal APPEARANCE: Yes grossly normal ATTITUDE: Yes calm and Yes engaged ATTENTION/CONCENTRATION: Yes attention grossly intact Skin: COMMON NORMALS: no rashes or lesions noted GENERAL SKIN EXAM: no rashes or lesions noted Urinary Catheter Management: [place]: Cath Placed During This Visit: yes, but has since been removed by the nurse Reason for Continuing Indwelling Catheter: Perioperative Use in Selected Surgeries Urinary Catheter Date of Insertion: 10/09/21 Urinary Catheter Time of Insertion: 07:20 Date Urinary Catheter Removed: 10/10/21 Time Urinary Catheter Discontinued: 06:14 Discharge Data Studies Completed and Pending Completed Studies During Hospitalization Category Date Time Status XR knee RT 1-2V 87368 Routine Exams 10/09/21 10:19 Completed Pending at discharge Category Date Time Status CTA PE [CT angio chest PE protcl 40205] Routine Cat Scan 10/11/21 11:10 [place] [address] Stat Ultrasound 10/11/21 11:10 Ordered Radiology Impressions Knee X-Ray 10/09/21 10:19 IMPRESSION: 1. Right total knee arthroplasty without periprosthetic fracture or osteolysis. 2. No acute fracture or malalignment. 3. Small joint effusion. Laboratory Results WBC 9.1 10^3/uL (4.0-10.0) 10/10/21 04:02 RBC 4.13 10^6/uL (4.1-5.3) 10/10/21 04:02 Hgb 12.2 g/dL (11.5-15.3) 10/10/21 04:02 Hct 35.8 % (37.0-47.0) L 10/10/21 04:02 MCV 86.7 fl (81-99) 10/10/21 04:02 MCH 29.5 pg (28.0-34.0) 10/10/21 04:02 MCHC 34.1 g/dL (30.0-36.0) 10/10/21 04:02 RDW 13.1 % (12.1-15.1) 10/10/21 04:02 Plt Count 179 10^3/cmm (130-400) 10/10/21 04:02 MPV 11.8 fL (7.4-10.4) H 10/10/21 04:02 Neut % (Auto) 72.0 % 10/10/21 04:02 Lymph % (Auto) 15.9 % 10/10/21 04:02 [place] % (Auto) 11.6 % 10/10/21 04:02 Eos % (Auto) 0.0 % 10/10/21 04:02 Baso % (Auto) 0.3 % 10/10/21 04:02 Neut # (Auto) 6.54 10^3/uL (1.8-7.7) 10/10/21 04:02 Lymph # (Auto) 1.5 10^3/uL (0.8-4.8) 10/10/21 04:02 [place] # (Auto) 1.1 10^3/uL (0.2-0.9) H 10/10/21 04:02 Eos # (Auto) 0.0 10^3/uL (0.0-0.8) 10/10/21 04:02 Baso # (Auto) 0.0 10^3/uL (0.0-0.1) 10/10/21 04:02 Nucleated RBC % (auto) 0 % 10/10/21 04:02 Nucleated RBCs # 0.0 /100WBC 10/10/21 04:02 D-Dimer 2.32 ug/mIFEU (0-0.59) H 10/11/21 10:13 Sodium 134 mmol/L (136-145) L 10/10/21 04:02 Potassium 4.3 mmol/L (3.5-5.1) 10/10/21 04:02 Chloride 101 mmol/L (98-107) 10/10/21 04:02 Carbon Dioxide 25 mmol/L (22-29) 10/10/21 04:02 Anion Gap 12.3 (5-19) 10/10/21 04:02 BUN 13 mg/dL (8-23) 10/10/21 04:02 Creatinine 0.9 mg/dL (0.5-0.9) 10/10/21 04:02 GFR Calculation 61.9 mL/min (90-130) L 10/10/21 04:02 Glucose 129 mg/dL (65-115) H 10/10/21 04:02 Calculated Osmolality 280 mOsm/kg (285-295) L 10/10/21 04:02 Lactate 1.9 mmol/L (0.5-2.2) 10/10/21 14:21 Calcium 9.0 mg/dL (8.5-10.5) 10/10/21 04:02 Total Bilirubin 1.4 mg/dL (0.15-1.2) H 10/05/21 08:55 AST 18 U/L (0-32) 10/05/21 08:55 ALT 13 U/L (0-33) 10/05/21 08:55 Alkaline Phosphatase 72 IU/L (35-105) 10/05/21 08:55 Troponin T Gen 5 ng/L 9 ng/L (0-10) 10/10/21 14:21 Total Protein 6.8 g/dL (6.6-8.7) 10/05/21 08:55 Albumin 4.3 g/dL (3.5-5.2) 10/05/21 08:55 Globulin 2.5 g/dL (1.3-4.6) 10/05/21 08:55 TSH 1.26 uIU/mL (0.27-4.20) 10/10/21 04:20 Random Cortisol 2.32 ug/dL (2.47-19.5) L 10/10/21 04:20 Cortisol Response 10/11/21 10:13 Urine Color Yellow (Yellow) 10/05/21 08:43 Urine Appearance Clear (CLEAR) 10/05/21 08:43 Urine pH 7 (5-7) 10/05/21 08:43 Ur Specific [place] 1.010 (1.005-1.030) 10/05/21 08:43 Urine Protein Neg (Negative) 10/05/21 08:43 Urine Glucose (UA) Norm (Normal) 10/05/21 08:43 Urine Ketones Negative (Negative) 10/05/21 08:43 Urine Blood Neg (Negative) 10/05/21 08:43 Urine Nitrate Negative (Negative) 10/05/21 08:43 Urine Bilirubin Neg (Negative) 10/05/21 08:43 Urine Urobilinogen Norm mg/dL (Negative) 10/05/21 08:43 Ur Leukocyte Esterase Negative (Negative) 10/05/21 08:43 Vitals Last Vital Signs Temp 97.7 F 10/11/21 12:00 Pulse 70 10/11/21 12:00 Resp 16 10/11/21 12:00 BP 143/75 10/11/21 12:00 Pulse Ox 96 10/11/21 12:00 Discharge Plan Discharge Patient Disposition: Home Health Service Condition: Stable Prescriptions: New celecoxib 200 mg Capsule 200 mg PO DAILY 30 Days Qty: 30 0RF acetaminophen 500 mg Tablet 1,000 mg PO Q8H 15 Days Qty: 90 0RF aspirin 325 mg Tablet,Delayed Release (Dr/Ec) 325 mg PO DAILY 30 Days 0RF oxycodone 5 mg Tablet 5 mg PO Q4H PRN (Reason: Moderate Pain) 7 Days Qty: 30 0RF Continued alprazolam 0.25 mg tablet 0.25 mg PO TID PRN (Reason: Anxiety) 0RF fluoxetine 10 mg capsule 10 mg PO DAILY 0RF prednisolone acetate 1 % drops,suspension 1 drp ophthalmic (eye) BID 0RF Rx Instructions: right eye Discharge Orders: Discharge Order (Routine); Ordered 10/11/21 Ordered By: Yasmine Crain Other Ambulatory Orders: DME: Walker (Order) Location: None Selected Ordered By: Yasmine Crain Referrals: [facility] ([facility]) [Outside] Yasmine Crain MD [Physician] - 10/22/21 8:30 am (Then again on November 19 at 9:15 AM) Discharge Diet: Advance as tolerated and Usual diet Discharge Activity: Increase activity as tolerated, Limit activity as instructed, Use walker/crutches as instructed and As per PT/OT instructions Patient Instructions: Aspirin (By mouth), Oxycodone, Rapid Release (By mouth), Celecoxib (By mouth) (jazlyn Madrigal), How to Choose and Use a Walker (GEN), Knee Replacement (GEN) Activity Restrictions/Additional Instructions: May weight-bear as tolerated. Work with physical therapy on gait training and strength. Home physical therapy for range of motion as well. Discharge Attestations Time Spent in Discharge Care*: greater than 30 min Specific Discharge Activities: educating patient, discussing with pcp/other providers, documenting/other paperwork and evaluating patient/reviewing data Quality Metrics Clinical Quality Measures [ No reported AMI, CVA or VTE this stay] Coding Level of Care Code Acute [facility] note Exam Comprehensive Diagnoses Hypotension I95.9 Status post total right knee replacement not using cement Z96.651
[2021-10-11] MEDS: iohexol 350 mg/mL 100 mL Btl IV (13:48)
[2021-10-11] MEDS: enoxaparin 40 mg/0.4 mL Syringe SUBCUT (14:29)
[2021-10-11 16:00] VITALS: BP 153/82; PULSE 76; RESP 16; TEMP 36.7; O2SAT 96
== END 2021-10-11 16:36 | disposition home health service (06) ==
LOC: MEDSURG 13:40
PROVIDERS: Internal Medicine; Admitting Provider Specialist; PCP Family Medicine; Visit Provider Specialist
PROC: (CPT 27447; principal; 2021-10-09 07:00)
DX: M17.11 Unilateral primary osteoarthritis, right knee (principal); I95.9 Hypotension, unspecified; M79.661 Pain in right lower leg; R60.0 Localized edema
CPT/HCPCS: 27447; 36415; 51702; 71275; 73560; 80048; 80053; 81003; 82533; 83605; 84443; 84484; 85025; 85378; 93005; 93971; 97110; 97116; 97161; 97165; 97530; C1776; C9290; G0378; J0690; J0834; J1100; J1650; J2370; J2405; J2704; J2795; J3010; J3370; J3490; J7030; Q9967

== ENCOUNTER → 2021-10-22 08:02 | Outpatient (BNVA) | payer MEDICARE, SELFPAY | PROVIDERS: PCP Family Medicine; Visit Provider Nurse Practitioner Family | DX: Z96.651 Presence of right artificial knee joint (principal); Z48.89 Encounter for other specified surgical aftercare | CPT/HCPCS: 73560; 73565; 99024 ==

== ENCOUNTER 2021-11-01 12:25 | Outpatient (CLI) | payer MEDICARE, SELFPAY ==
--- NOTE | 2021-11-01 12:34 | XR_ITS ---
WS: [id number] Chest 2 views, 11/01/2021 Clinical Data: COUGH Comparison: None. Findings: No nodules, masses or effusions are seen. The heart is normal. The pulmonary vascularity is not increased. No pneumonia or pneumothorax is seen. The aortic arch and descending thoracic aorta s how mild tortuosity XR/XR chest 2V* [id number] Impression: Atherosclerosis.
== END 2021-11-01 12:26 | disposition home or self-care (01) ==
LOC: RAD 12:27
PROVIDERS: PCP Family Medicine; Visit Provider Family Medicine
DX: R05.9 Cough, unspecified (principal); I70.0 Atherosclerosis of aorta
CPT/HCPCS: 71046

== ENCOUNTER 2021-11-02 13:13 | Outpatient (RCR) | payer MEDICARE, SELFPAY | END 2021-11-25 23:59 | disposition home or self-care (01) | LOC: SPT 13:13 | PROVIDERS: PCP Family Medicine; Referring Provider Specialist; Visit Provider Specialist | DX: Z47.1 Aftercare following joint replacement surgery (principal); Z96.651 Presence of right artificial knee joint | CPT/HCPCS: 97110; 97161 ==

== ENCOUNTER → 2021-11-19 08:52 | Outpatient (BNVA) | payer MEDICARE, SELFPAY | PROVIDERS: PCP Family Medicine; Visit Provider Nurse Practitioner Family | DX: Z96.651 Presence of right artificial knee joint (principal) | CPT/HCPCS: 73560; 73565; 99024 ==

== ENCOUNTER 2021-11-26 06:00 | Outpatient (RCR) | payer MEDICARE, SELFPAY | END 2021-12-13 23:59 | disposition home or self-care (01) | LOC: SPT 06:00 | PROVIDERS: PCP Family Medicine; Referring Provider Specialist; Visit Provider Specialist | DX: Z47.1 Aftercare following joint replacement surgery (principal); Z96.651 Presence of right artificial knee joint | CPT/HCPCS: 97110 ==

== ENCOUNTER 2021-12-12 05:34 | Emergency (ER) | payer MEDICARE, SELFPAY ==
[2021-12-12 05:36] VITALS: BMI 29.7
[2021-12-12 05:41] VITALS: BP 183/103; PULSE 71; RESP 16; TEMP 36.8; O2SAT 97
--- NOTE | 2021-12-12 05:43 | ECG_ITS ---
[facility] Test Date: 2021-12-12 Pat Name: Susie Gonzales Department: Room: Gender: Female Contract Administrator: : 1950 Requested By: Farooq Goodman Order Number: [id number] Dee Dee MD: Salvador Costello M.D. Measurements Intervals [place] Rate: 70 P: 46 [place]: 168 QRS: 20 QRSD: 91 T: 60 QT: 403 QTc: 435 Interpretive Statements SINUS RHYTHM Compared to ECG 10/10/2021 14:13:35 No significant changes Electronically Signed On 12-12-2021 17:17:50 CDT by Salvador Costello M.D. [email or web address] medical [email or web address].[employer]/store/NU/[id number] f
[2021-12-12 05:46] VITALS: BP 164/82; BP 167/80; BP 175/82; PULSE 73; PULSE 74; PULSE 75
--- NOTE | 2021-12-12 05:55 | ED_ITS ---
HPI - Dizziness General: Chief Complaint: Dizziness Stated Complaint: dizziness Time Seen by Provider: 12/12/21 05:46 Source: patient Mode of arrival: ambulatory Limitations: no limitations History of Present Illness: HPI Narrative: 71-year-old female presents via EMS with complaints of dizziness. Patient states she is in her usual state of good health when she went to bed last night around 7 PM when she woke up this morning she tried to get out of bed and had a sudden onset of severe vertiginous-like symptoms. States that she stays lying down and closes her eyes it gets better. When I came to see her she was sitting with the head of the bed elevated to approximately 25 or 30 degrees and was asymptomatic. She states when she tries to set up symptoms recur. She also noticed while in route to the hospital that in the ambulance turns and change in directions precipitated more symptoms. She had no chest pain or shortness of breath she denies any weakness in her arms or legs no difficulty with speech or vision. She denies any recent illness no abdominal pain no dysuria urgency or frequency. Last month she had a right knee arthroplasty. She seems to have rec overed from this without difficulty does not notice any leg swelling she describes her recovery is going very well. She has had recurrent bladder infections in the past. She denies any history of stroke coronary artery disease or CVA or hypertension. She is not diabetic. She has not previously h ad episodes like this in the past. MD elicited complaint: vertigo Onset (ago): minute(s) Timing: awoke with symptoms Severity: moderate Description: room spinning Context: change in body position Exacerbating factors: change in body position Relieving factors: remaining still and keeping eyes closed Associated symptoms: Denies change in hearing, chest pain, chills, cough, diaphoresis, ear discharge, ear pressure, fevers/chills, headache(s), malaise, nausea, nasal congestion, palpitations, rash, short of breath, syncope, tinnitus, vomiting or weakness Associated neuro symptoms: Deny confusion, difficulty speaking, dysphagia, diplopia, extremity weakness, facial numbness, facial weakness, gait changes, numbness in extremities or visual changes Review of Systems Const: Denies: fever(s), chills, fatigue, malaise or diaphoresis Eyes: Denies: change in vision, blurry vision or photophobia ENMT: Denies: throat pain, ear discharge, change in hearing, tinnitus or nasal congestion Card: Denies: chest pain, palpitations, irregular heart rhythm or syncope Resp: Denies: dyspnea, productive cough or non-productive cough GI: Denies: abdominal pain, nausea, vomiting or dysphagia : Denies: flank pain, difficulty voiding, dysuria, urinary frequency or urinary urgency Skin/Breast: Denies: rash or pruritus Neuro: Reports: vertigo; Denies: headache(s), numbness in extremities, weakness in extremities, sensory changes, lack of coordination or confusion PFSH ED PFSH: Medical History 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 Medial meniscus, posterior horn derangement No pertinent past medical history neghx: htn,dm,thyroid,dvt/pe Osteoarthritis of right knee Pes anserine bursitis Surgical History Hx of tubal ligation (~1976) Family History Denies family history of Colon cancer Ovarian cancer Diabetes Hypercholesteremia Breast cancer Hypertension Uterine cancer Thyroid disease Stroke Social History Smoking and tobacco status: never smoked Additional social history: - Tobacco use: denies Alcohol use: denies Drug use: denies Physical Exam Const: COMMON NORMALS: no acute distress GENERAL APPEARANCE: cooperative and comfortable ORIENTATION/CONSCIOUSNESS: Yes awake, Yes oriented to person, Yes oriented to place and Yes oriented to time HENMT: COMMON NORMALS: normocephalic, atraumatic, hearing grossly normal bilaterally, external ears normal, EAC's normal, TM's normal bilaterally, Normal nasal mucous membranes and turbinates present, moist oral mucous membranes and oropharynx normal HEAD & SCALP: normocephalic and atraumatic NOSE: Normal nasal mucous membranes and turbinates present EXTERNAL EAR: Yes external ears normal EXTERNAL AUDITORY CANAL: EAC's normal TYMPANIC MEMBRANE: TM's normal bilaterally Eye: COMMON NORMALS: Equal, round and reactive pupils present, EOMs intact bilaterally, conjunctivae normal and no scleral icterus CONJUNCTIVA: Yes conjunctivae normal PUPIL: Yes Equal, round and reactive pupils present Neck/C-Spine: COMMON NORMALS: full ROM, no lymphadenopathy, supple and no JVD Lymph: LYMPHATIC: no lymphadenopathy noted and no lymphedema noted Resp: COMMON NORMALS: normal respiratory effort, No retractions, No use of accessory muscles and clear to auscultation bilaterally AUSCULTATION: clear to auscultation bilaterally Cardio: COMMON NORMALS: no JVD, regular rate, regular rhythm and No murmurs present (Cardio) RATE: regular rate RHYTHM: regular rhythm GI: COMMON NORMALS: Soft to palpation and No hepatosplenomegaly present AUSCULTATION: Yes normoactive bowel sounds PALPATION: Yes Soft to palpation, No Tenderness to palpation present (GI), No Guarding due to palpation present (GI) and Yes No hepatosplenomegaly present Extremity: COMMON NORMALS: normal to inspection, capillary refill normal, no clubbing, cyanosis or edema, no calf tenderness and no pedal edema Neuro: SENSORIUM/ORIENTATION: Yes oriented to person, Yes oriented to place and Yes oriented to time Skin: COMMON NORMALS: no rashes or lesions noted GENERAL SKIN EXAM: no rashes or lesions noted Course Vital Signs: Vital signs: Vital Signs Temperature 98.3 F 12/12/21 05:41 Pulse Rate 75 12/12/21 05:46 Respiratory Rate 16 12/12/21 05:41 Blood Pressure 167/80 12/12/21 05:46 Pulse Oximetry 97 12/12/21 05:41 Oxygen Delivery Me thod 12/12/21 05:41 MDM - Dizziness Medical Decision Making No focal neurologic deficits. Patient gets dizziness with change in body posi tion but does not have any significant nausea or vomiting. Her NIH score is 0. We will go ahead and discharge the patient home use meclizine as needed. She is also moderately hypertensive we will start her on amlodipine 2.5 daily however follow-up with primary care doc within the week to reevaluate blood pressure. Medical Records I reviewed the patient's medical records. Lab Data I reviewed the patient's lab results. : 12/12/21 05:35 12/12/21 05:35 Laboratory Results WBC 4.6 10^3/uL (4.0-10.0) 12/12/21 05:35 RBC 4.69 10^6/uL (4.1-5.3) 12/12/21 05:35 Hgb 14.0 g/dL (11.5-15.3) 12/12/21 05:35 Hct 42.4 % (37.0-47.0) 12/12/21 05:35 MCV 90.4 fl (81-99) 12/12/21 05:35 MCH 29.9 pg (28.0-34.0) 12/12/21 05:35 MCHC 33.0 g/dL (30.0-36.0) 12/12/21 05:35 RDW 11.9 % (12.1-15.1) L 12/12/21 05:35 Plt Count 188 10^3/cmm (130-400) 12/12/21 05:35 MPV 11.6 fL (7.4-10.4) H 12/12/21 05:35 Neut % (Auto) 51.1 % 12/12/21 05:35 Lymph % (Auto) 37.7 % 12/12/21 05:35 [place] % (Auto) 7.5 % 12/12/21 05:35 Eos % (Auto) 2.6 % 12/12/21 05:35 Baso % (Auto) 0.9 % 12/12/21 05:35 Neut # (Auto) 2.37 10^3/uL (1.8-7.7) 12/12/21 05:35 Lymph # (Auto) 1.8 10^3/uL (0.8-4.8) 12/12/21 05:35 [place] # (Auto) 0.4 10^3/uL (0.2-0.9) 12/12/21 05:35 Eos # (Auto) 0.1 10^3/uL (0.0-0.8) 12/12/21 05:35 Baso # (Auto) 0.0 10^3/uL (0.0-0.1) 12/12/21 05:35 Nucleated RBC % (auto) 0 % 12/12/21 05:35 Nucleated RBCs # 0.0 /100WBC 12/12/21 05:35 Sodium 141 mmol/L (136-145) 12/12/21 05:35 Potassium 3.9 mmol/L (3.5-5.1) 12/12/21 05:35 Chloride 104 mmol/L (98-107) 12/12/21 05:35 Carbon Dioxide 27 mmol/L (22-29) 12/12/21 05:35 Anion Gap 13.9 (5-19) 12/12/21 05:35 BUN 19 mg/dL (8-23) 12/12/21 05:35 Creatinine 0.8 mg/dL (0.5-0.9) 12/12/21 05:35 GFR Calculation 70.9 mL/min (90-130) L 12/12/21 05:35 Glucose 94 mg/dL (65-115) 12/12/21 05:35 Calculated Osmolality 294 mOsm/kg (285-295) 12/12/21 05:35 Calcium 9.5 mg/dL (8.5-10.5) 12/12/21 05:35 Magnesium 2.3 mg/dL (1.7-2.3) 12/12/21 05:35 Total Bilirubin 0.8 mg/dL (0.15-1.2) 12/12/21 05:35 AST 16 U/L (0-32) 12/12/21 05:35 ALT 9 U/L (0-33) 12/12/21 05:35 Alkaline Phosphatase 115 U/L (35-105) H 12/12/21 05:35 Troponin T Baseline 10 ng/L (0-10) 12/12/21 05:35 Total Protein 7.0 g/dL (6.6-8.7) 12/12/21 05:35 Albumin 4.6 g/dL (3.5-5.2) 12/12/21 05:35 Globulin 2.4 g/dL (1.3-4.6) 12/12/21 05:35 Urine Color Yellow (Yellow) 12/12/21 06:12 Urine Appearance Clear (CLEAR) 12/12/21 06:12 Urine pH 7 (5-7) 12/12/21 06:12 Ur Specific [place] 1.010 (1.005-1.030) 12/12/21 06:12 Urine Protein Neg (Negative) 12/12/21 06:12 Urine Glucose (UA) Norm (Normal) 12/12/21 06:12 Urine Ketones Negative (Negative) 12/12/21 06:12 Urine Blood Neg (Negative) 12/12/21 06:12 Urine Nitrate Negative (Negative) 12/12/21 06:12 Urine Bilirubin Neg (Negative) 12/12/21 06:12 Urine Urobilinogen Norm mg/dL (Negative) 12/12/21 06:12 Ur Leukocyte Esterase 1+ (Negative) H 12/12/21 06:12 Urine RBC Rare /hpf (0-2) 12/12/21 06:12 Urine WBC 5-10 /hpf (0-5) H 12/12/21 06:12 Ur Squamous Epith Cells 5-10 /hpf (0-5) H 12/12/21 06:12 Amorphous Sediment Not Reportable 12/12/21 06:12 Urine Bacteria Trace /hpf (NONE) 12/12/21 06:12 Discharge Plan Discharge Patient Disposition: Home Clinical Impression: Acute labyrinthitis, HTN (hypertension) Condition: Stable Prescriptions: New meclizine 25 mg tablet 25 mg PO QID PRN (Reason: dizziness) Qty: 20 0RF amlodipine 2.5 mg tablet 2.5 mg PO DAILY Qty: 30 0RF No Action alprazolam 0.25 mg tablet 0.25 mg PO TID PRN (Reason: Anxiety) prednisolone acetate 1 % drops,suspension 1 drp ophthalmic (eye) BID Rx Instructions: right eye fluoxetine 10 mg capsule 10 mg PO DAILY Qty: 30 5RF Discharge Orders: Discharge ED (Routine); Ordered 12/12/21 Ordered By: Fraooq Keys Referrals: Den Urbina DO [Primary Care Provider] - Discharge Diet: Usual diet Discharge Activity: Resume usual activity Patient Instructions: Opioid Safety Coding Level of Care Code ED Access Assoc for Cris Fwd Exam Comprehensive NIH stroke score NIHSS Level Of Consciousness - 1a: 0 Level Of Consciousness Questions - 1b: Both Correct Level Of Consciousness Commands - 1c: Both Correct Best Gaze - 2: Normal Visual Daives - 3: No Visual Loss Facial Palsy - 4: Normal Motor Arm Right - 5: No Drift Motor Arm Left - 5: No Drift Motor Leg Right - 6: No Drift Motor Leg Left - 6: No Drift Limb Ataxia - 7: Absent Sensory - 8: Normal Best Language - 9: No Aphasia Dysarthia - 10: Normal Extinction And Inattention - 11: 0 Score Total Score: 0
[2021-12-12 06:03] LABS: Basophils % 0.9 %; Eosinophils # 0.1 10^3/uL (0.0-0.8); Eosinophils % 2.6 %; Hematocrit 42.4 % (37.0-47.0); Lymphocytes # 1.8 10^3/uL (0.8-4.8); Lymphocytes % 37.7 %; Mean Corpuscular Hemoglobin 29.9 pg (28.0-34.0); Mean Corpuscular Volume 90.4 fl (81-99); Mean Platelet Volume 11.6 fL (7.4-10.4); Monocytes # 0.4 10^3/uL (0.2-0.9); Monocytes % 7.5 %; Neutrophils # 2.37 10^3/uL (1.8-7.7); Neutrophils % 51.1 %; Nucleated Red Blood Cells % 0 %; Platelet Count 188 10^3/cmm (130-400); Red Blood Count 4.69 10^6/uL (4.1-5.3); Red Cell Distribution Width 11.9 % (12.1-15.1); White Blood Count 4.6 10^3/uL (4.0-10.0)
[2021-12-12 06:39] LABS: Alanine Aminotransferase 9 U/L (0-33); Albumin Level 4.6 g/dL (3.5-5.2); Alkaline Phosphatase 115 U/L (35-105); Anion Gap 13.9 (5-19); Aspartate Amino Transferase 16 U/L (0-32); Blood Urea Nitrogen 19 mg/dL (8-23); Calcium 9.5 mg/dL (8.5-10.5); Carbon Dioxide 27 mmol/L (22-29); Chloride 104 mmol/L (98-107); Globulin 2.4 g/dL (1.3-4.6); Glomerular Filtration Rate 70.9 mL/min (90-130); Glucose 94 mg/dL (65-115); Magnesium 2.3 mg/dL (1.7-2.3); Osmolality Calculated 294 mOsm/kg (285-295); Potassium 3.9 mmol/L (3.5-5.1); Sodium 141 mmol/L (136-145); Total Bilirubin 0.8 mg/dL (0.15-1.2)
[2021-12-12 06:40] LABS: Troponin(5th) Baseline 10 ng/L (0-10)
[2021-12-12 07:03] LABS: Add Urine Microscopic? YES; Bilirubin Urine Neg (Negative); Blood Urine Neg (Negative); Glucose Urine UA Norm (Normal); Ketones Urine Negative (Negative); Leukocyte Esterase Urine 1+ (Negative); Nitrate Urine Negative (Negative); Protein Urine Neg (Negative); Urine Appearance Clear (CLEAR); Urine Color Yellow (Yellow); Urobilinogen Urine Norm (Negative); pH Urine 7 (5-7)
[2021-12-12 07:04] LABS: Bacteria Urine TRACE /hpf; RBC Urine RARE /hpf (0-2)
[2021-12-12] MEDS: LORazepam 2 mg Tablet PO (07:15)
[2021-12-12 08:02] VITALS: BP 185/79; PULSE 66; RESP 19; O2SAT 93
== END 2021-12-12 08:01 | disposition home or self-care (01) ==
PROVIDERS: Emergency Provider Family Medicine; PCP Family Medicine
DX: H83.09 Labyrinthitis, unspecified ear (principal); I10 Essential (primary) hypertension
CPT/HCPCS: 80053; 81001; 83735; 84484; 85025; 93005; 99285

== ENCOUNTER → 2022-02-11 08:28 | Outpatient (BNVA) | payer MEDICARE, SELFPAY | PROVIDERS: PCP Family Medicine; Visit Provider Otolaryngology | DX: H61.23 Impacted cerumen, bilateral (principal); R42 Dizziness and giddiness | CPT/HCPCS: 69210; 99203 ==

== ENCOUNTER → 2022-02-19 08:28 | Outpatient (BNVA) | payer MEDICARE, SELFPAY | PROVIDERS: PCP Family Medicine; Visit Provider Nurse Practitioner Family | DX: Z96.651 Presence of right artificial knee joint (principal); R20.2 Paresthesia of skin | CPT/HCPCS: 73560; 73565; 99213 ==

== ENCOUNTER → 2022-04-30 11:41 | Outpatient (BNVA) | payer MEDICARE, SELFPAY | PROVIDERS: PCP Family Medicine; Visit Provider Family Medicine | DX: Z00.00 Encounter for general adult medical examination without abnormal findings (principal); I95.9 Hypotension, unspecified | CPT/HCPCS: 80048 ==

== ENCOUNTER → 2022-06-12 11:10 | Outpatient (BNVA) | payer MEDICARE, SELFPAY | PROVIDERS: PCP Family Medicine; Visit Provider Nurse Practitioner Women's Health | DX: R30.0 Dysuria (principal); N89.8 Other specified noninflammatory disorders of vagina; R39.89 Other symptoms and signs involving the genitourinary system; N90.3 Dysplasia of vulva, unspecified | CPT/HCPCS: 84315; 87070; 87205 ==

== ENCOUNTER 2022-07-22 12:04 | Outpatient (RCR) | payer MEDICARE, SELFPAY | END 2022-07-26 23:59 | disposition home or self-care (01) | LOC: SPT 12:04 | PROVIDERS: PCP Family Medicine; Visit Provider Optometrist | DX: H81.10 Benign paroxysmal vertigo, unspecified ear (principal) | CPT/HCPCS: 95992; 97161 ==

== ENCOUNTER 2022-07-31 13:26 | Outpatient (RCR) | payer MEDICARE, SELFPAY | END 2022-08-25 23:59 | disposition home or self-care (01) | LOC: SPT 13:26 | PROVIDERS: PCP Family Medicine; Visit Provider Optometrist | DX: H81.10 Benign paroxysmal vertigo, unspecified ear (principal) | CPT/HCPCS: 95992 ==

== ENCOUNTER → 2022-09-11 09:45 | Outpatient (BNVA) | payer MEDICARE, SELFPAY | PROVIDERS: PCP Family Medicine; Visit Provider Family Medicine | DX: R39.89 Other symptoms and signs involving the genitourinary system (principal) | CPT/HCPCS: 81000; 87086 ==

== ENCOUNTER 2022-09-30 10:20 | Outpatient (RCR) | payer MEDICARE, SELFPAY | END 2022-10-09 23:59 | disposition home or self-care (01) | LOC: SPT 10:20 | PROVIDERS: PCP Family Medicine; Visit Provider Family Medicine | DX: H81.10 Benign paroxysmal vertigo, unspecified ear (principal) | CPT/HCPCS: 95992; 97161 ==

== ENCOUNTER 2022-09-30 15:08 | Emergency (ER) | payer MEDICARE, SELFPAY ==
[2022-09-30 15:17] VITALS: BP 150/74; PULSE 66; RESP 12; TEMP 36.8; O2SAT 98; BMI 30.7
--- NOTE | 2022-09-30 16:19 | W.ED.DIZZY ---
HPI - Dizziness General: Chief Complaint: Dizziness Stated Complaint: n/v, Has virtgo Time Seen by Provider: 09/30/22 16:16 Source: patient Mode of arrival: ambulatory History of Present Illness: HPI Narrative: 72 yo female w a hx of BPPV presents with complaints of vertiginous symptoms. She has had problems with fine paroxysmal positional vertigo in the past went to vestibular rehab seem to getting be getting better now that suddenly worsened today's symptoms are reproducible with moving her head to the right or with sitting up. She is not taking anything for up to this point. She denies any difficulty speech or swallowing. MD elicited complaint: dizziness Pertinent past history: BPPV Onset (ago): hour(s) Severity: moderate Description: room spinning Context: change in body position Exacerbating factors: change in body position Relieving factors: lying down and keeping eyes closed Associated symptoms: Reports nausea and vomiting; Denies change in hearing, chest pain, chills, cough, diaphoresis, ear discharge, ear pressure, fevers/chills, headache(s), malaise, nasal congestion, palpitations, rash, short of breath, syncope, tinnitus or weakness Review of Systems Const: Denies: fever(s), chills, fatigue, malaise or diaphoresis ENMT: Denies: ear discharge, change in hearing, tinnitus or nasal congestion Card: Denies: chest pain, palpitations or syncope Resp: Denies: dyspnea, productive cough or non-productive cough GI: Reports: nausea and vomiting; Denies: abdominal pain : Denies: flank pain, difficulty voiding, dysuria, urinary frequency or urinary urgency Musc: Denies: neck pain or back pain Skin/Breast: Denies: rash or pruritus Neuro: Reports: dizziness; Denies: headache(s) PFSH ED PFSH: Medical History BPPV (benign paroxysmal positional vertigo) 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 Surgical History History of bilateral tubal ligation History of cataract extraction with lens replacement History of D&C History of right knee joint replacement Family History Mother Dementia Grandfather Cancer kidney Denies family history of Colon cancer Ovarian cancer Diabetes Hypercholesteremia Breast cancer Hypertension Uterine cancer Thyroid disease Stroke Social History Smoking and tobacco status: never smoked Alcohol intake: never Substance/Drug Use: never Household members: spouse Marital status: Number of children: 2 Number of grandchildren: 3 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al status: employed 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 Lorna/Yazdanism: Christianity Agree to transfusion: Yes Additional social history: - Physical Exam Const: COMMON NORMALS: no acute distress GENERAL APPEARANCE: cooperative and comfortable ORIENTATION/CONSCIOUSNESS: Yes awake, Yes oriented to person, Yes oriented to place and Yes oriented to time HENMT: COMMON NORMALS: normocephalic, atraumatic and hearing grossly normal bilaterally HEAD & SCALP: normocephalic and atraumatic Resp: COMMON NORMALS: normal respiratory effort, No retractions, No use of accessory muscles and clear to auscultation bilaterally AUSCULTATION: clear to auscultation bilaterally Cardio: COMMON NORMALS: regular rate, regular rhythm and No murmurs present (Cardio) RATE: regular rate RHYTHM: regular rhythm GI: COMMON NORMALS: Soft to palpation and No hepatosplenomegaly present AUSCULTATION: Yes normoactive bowel sounds PALPATION: Yes Soft to palpation, No Tenderness to palpation present (GI), No Guarding due to palpation present (GI) and Yes No hepatosplenomegaly present Extremity: COMMON NORMALS: normal to inspection, capillary refill normal, no clubbing, cyanosis or edema, no calf tenderness and no pedal edema Neuro: SENSORIUM/ORIENTATION: Yes oriented to person, Yes oriented to place and Yes oriented to time Skin: COMMON NORMALS: no rashes or lesions noted GENERAL SKIN EXAM: no rashes or lesions noted Course Vital Signs: Vital signs: Vital Signs Temperature 98.2 F 09/30/22 15:17 Pulse Rate 65 09/30/22 17:22 Respiratory Rate 12 09/30/22 15:17 Blood Pressure 154/73 09/30/22 17:22 Pulse Oximetry 98 09/30/22 17:22 Oxygen Delivery Me thod Room Air 09/30/22 17:22 MDM - Dizziness Medical Decision Making Improved reproducible with head movement particularly when she looks to the right or sits up. Ativan significant improvement with symptoms we will discharge patient home Ativan as needed follow-up with primary care may need to reinstitute her vestibular rehab program Medical Records I reviewed the patient's medical records. Lab Data I reviewed the patient's lab results. 09/30/22 16:50 09/30/22 16:50 Laboratory Results WBC 7.2 10^3/uL (4.0-10.0) 09/30/22 16:50 RBC 4.61 10^6/uL (4.1-5.3) 09/30/22 16:50 Hgb 13.3 g/dL (11.5-15.3) 09/30/22 16:50 Hct 40.3 % (37.0-47.0) 09/30/22 16:50 MCV 87.4 fl (81-99) 09/30/22 16:50 MCH 28.9 pg (28.0-34.0) 09/30/22 16:50 MCHC 33.0 g/dL (30.0-36.0) 09/30/22 16:50 RDW 12.2 % (12.1-15.1) 09/30/22 16:50 Plt Count 172 10^3/cmm (130-400) 09/30/22 16:50 MPV 11.4 fL (7.4-10.4) H 09/30/22 16:50 Neut % (Auto) 82.0 % 09/30/22 16:50 Lymph % (Auto) 13.5 % 09/30/22 16:50 [place] % (Auto) 3.5 % 09/30/22 16:50 Eos % (Auto) 0.1 % 09/30/22 16:50 Baso % (Auto) 0.6 % 09/30/22 16:50 Neut # (Auto) 5.92 10^3/uL (1.8-7.7) 09/30/22 16:50 Lymph # (Auto) 1.0 10^3/uL (0.8-4.8) 09/30/22 16:50 [place] # (Auto) 0.3 10^3/uL (0.2-0.9) 09/30/22 16:50 Eos # (Auto) 0.0 10^3/uL (0.0-0.8) 09/30/22 16:50 Baso # (Auto) 0.0 10^3/uL (0.0-0.1) 09/30/22 16:50 Nucleated RBC % (auto) 0 % 09/30/22 16:50 Nucleated RBCs # 0.0 /100WBC 09/30/22 16:50 Sodium 141 mmol/L (136-145) 09/30/22 16:50 Potassium 3.8 mmol/L (3.5-5.1) 09/30/22 16:50 Chloride 106 mmol/L (98-107) 09/30/22 16:50 Carbon Dioxide 23 mmol/L (22-29) 09/30/22 16:50 Anion Gap 15.8 (5-19) 09/30/22 16:50 BUN 15 mg/dL (8-23) 09/30/22 16:50 Creatinine 0.8 mg/dL (0.5-0.9) 09/30/22 16:50 GFR Calculation Not Reportable 09/30/22 16:50 Glucose 124 mg/dL (65-115) H 09/30/22 16:50 Calculated Osmolality 294 mOsm/kg (285-295) 09/30/22 16:50 Calcium 8.9 mg/dL (8.5-10.5) 09/30/22 16:50 Discharge Plan Discharge Patient Disposition: Home Clinical Impression: Benign paroxysmal positional vertigo Condition: Stable Prescriptions: New Ativan 2 mg tablet 2 mg PO Q6H PRN (Reason: dizziness or vertigo) Qty: 14 0RF No Action pantoprazole 40 mg tablet,delayed release (DR/EC) 40 mg PO DAILY Qty: 30 0RF Discharge Orders: Discharge ED (Routine); Ordered 09/30/22 Ordered By: Farooq Keys Referrals: Kaley oGnzalez MD [Primary Care Provider] - Discharge Diet: Usual diet Discharge Activity: Resume usual activity Patient Instructions: Opioid Safety, Pain Management Activity Restrictions/Additional Instructions: You are seen today for vertigo. You did respond well to the Ativan you are discharged home with Ativan 2 mg 1 p.o. every 6 hours as needed for recurrence of nausea or vertigo symptoms. Follow-up with your primary care doctor or return to one of the ENT physicians you have seen for this problem in the past. If symptoms worsen or change he can return to the emergency room. Coding Level of Care Code ED Dental Instructor for Cris Wyatt
[2022-09-30 17:00] LABS: Basophils % 0.6 %; Eosinophils % 0.1 %; Hematocrit 40.3 % (37.0-47.0); Hemoglobin 13.3 g/dL (11.5-15.3); Lymphocytes % 13.5 %; Mean Corpuscular Hemoglobin 28.9 pg (28.0-34.0); Mean Corpuscular Volume 87.4 fl (81-99); Mean Platelet Volume 11.4 fL (7.4-10.4); Monocytes # 0.3 10^3/uL (0.2-0.9); Monocytes % 3.5 %; Neutrophils # 5.92 10^3/uL (1.8-7.7); Nucleated Red Blood Cells % 0 %; Platelet Count 172 10^3/cmm (130-400); Red Blood Count 4.61 10^6/uL (4.1-5.3); Red Cell Distribution Width 12.2 % (12.1-15.1); White Blood Count 7.2 10^3/uL (4.0-10.0)
[2022-09-30 17:22] VITALS: BP 154/73; PULSE 65; O2SAT 98
[2022-09-30 17:22] LABS: Blood Urea Nitrogen 15 mg/dL (8-23); Calcium 8.9 mg/dL (8.5-10.5); Carbon Dioxide 23 mmol/L (22-29); Chloride 106 mmol/L (98-107); Glucose 124 mg/dL (65-115); Osmolality Calculated 294 mOsm/kg (285-295); Sodium 141 mmol/L (136-145)
[2022-09-30] MEDS: LORazepam 2 mg/mL INJ 1 mL IVP (17:23)
[2022-09-30 17:26] LABS: Anion Gap 15.8 (5-19); Potassium 3.8 mmol/L (3.5-5.1)
== END 2022-09-30 18:12 | disposition home or self-care (01) ==
PROVIDERS: Emergency Provider Family Medicine; PCP Family Medicine
DX: H81.10 Benign paroxysmal vertigo, unspecified ear (principal)
CPT/HCPCS: 36415; 80048; 85025; 96374; 99284; J2060

== ENCOUNTER → 2022-10-08 12:53 | Outpatient (BNVA) | payer MEDICARE, SELFPAY | PROVIDERS: PCP Family Medicine; Visit Provider Nurse Practitioner Family | DX: Z96.651 Presence of right artificial knee joint (principal); R52 Pain, unspecified | CPT/HCPCS: 73560; 73565; 99213 ==

== ENCOUNTER → 2022-10-18 12:34 | Outpatient (BNVA) | payer MEDICARE, SELFPAY | PROVIDERS: PCP Family Medicine; Visit Provider Family Medicine | DX: L29.9 Pruritus, unspecified (principal); F32.5 Major depressive disorder, single episode, in full remission; Z79.899 Other long term (current) drug therapy | CPT/HCPCS: 80053; 84443 ==

== ENCOUNTER 2022-11-29 14:10 | Outpatient (CLI) | payer MEDICARE, SELFPAY ==
--- NOTE | 2022-11-29 14:30 | XR_ITS ---
WS: [id number] DEXA (DUAL ENERGY X-RAY ABSORPTIOMETRY) Bone mineral density was performed using a Biletu machine. HISTORY: osteoporosis screening COMPARISON: None available. Lumbar spine BMD (L1-L4): 1.041 g/cm2 T score: -1.2 Z score: -0.4 Total hip BMD: Left: 0.894 g/cm2. T score: -0.9 Z score: 0.0 Right: 0.805 g/cm2. T score: -1.6 Z score: -0.7 10 year probability of a major osteoporotic fracture is 13.5%. XR/XR DEXA axial skeleton* [id number] IMPRESSION: OSTEOPENIA based upon the WHO classification for females.
== END 2022-11-29 14:11 | disposition home or self-care (01) ==
LOC: RAD 14:13
PROVIDERS: PCP Family Medicine; Visit Provider Family Medicine
DX: Z78.0 Asymptomatic menopausal state (principal); M85.80 Other specified disorders of bone density and structure, unspecified site
CPT/HCPCS: 77080

== ENCOUNTER → 2022-12-04 08:04 | Outpatient (BNVA) | payer MEDICARE, SELFPAY | PROVIDERS: PCP Family Medicine; Visit Provider Family Medicine | DX: M85.80 Other specified disorders of bone density and structure, unspecified site (principal); F32.5 Major depressive disorder, single episode, in full remission | CPT/HCPCS: 82306 ==

== ENCOUNTER → 2023-01-23 11:05 | Outpatient (BNVA) | payer MEDICARE, SELFPAY | PROVIDERS: PCP Family Medicine; Visit Provider Family Medicine | DX: R30.0 Dysuria (principal); N39.0 Urinary tract infection, site not specified | CPT/HCPCS: 81003; 87086 ==

== ENCOUNTER 2023-01-27 08:53 | Emergency (ER) | payer MEDICARE, SELFPAY ==
[2023-01-27 08:59] VITALS: BP 173/88; PULSE 73; RESP 18; TEMP 36.6; O2SAT 97; BMI 29.9
--- NOTE | 2023-01-27 09:11 | XRR_ITS ---
PROCEDURE INFORMATION: Exam: XR Abdomen Exam date and time: 01/27/2023 9:19 AM Age: 73 years old Clinical indication: Abdominal tenderness; Additional info: Abdominal pain, acid reflux TECHNIQUE: Imaging protocol: Radiologic exam of the abdomen. Views: 2 Views. Upright and supine views. COMPARISON: CR XR chest 2V* [id number] 11/01/2021 12:34 PM FINDINGS: Lungs: Lung bases are clear Gastrointestinal tract: Abdomen is somewhat gasless with large amount of stool throughout the colon that may reflect some degree of constipation. Intraperitoneal space: Normal. No free air. Bones/joints: Mild degenerative changes within the mid lower lumbar spine and both hip joints. XR/XR abdomen min 2V [id number] IMPRESSION: Findings suspicious for generalized constipation.
--- NOTE | 2023-01-27 09:12 | ED_ITS ---
HPI - Abdominal Pain General: Chief Complaint: Urogenital-Female Stated Complaint: states possible UTI and acid reflux Time Seen by Provider: 01/27/23 08:54 Source: patient Mode of arrival: ambulatory Limitations: no limitations History of Present Illness: Patient is a 73-year-old female here for 2 separate complaints. First of all she has been experiencing acid reflux over the past several weeks. She states after eating she will constantly belch and feels an acid brash taste in her mouth. She feels like symptoms are worse when she lies down on her left side. Patient feels like Pepcid will sometimes help with symptoms. She states her primary care provider started her on pantoprazole and she has not really noticed much of a difference after starting this medication. She has not noticed any significant difference with diet/certain foods. She is not having any chest pain or shortness of breath. Her other complaint is urinary related. She states over the past few weeks she has had what she refers to as a lot of bladder pressure, urinary urgency and frequency. She will occasionally have some pain with urination. He is not having any flank pain. No fevers. She states she has reached out to her primary care provider and is on her second round of antibiotics for UTI. She does report her last urine was cultured but she does not know these results. MD elicited complaint: abdominal pain Onset (ago): week(s) Pain Consistency: intermittent Location: Epigastric and Suprapubic Severity: moderate Radiation: none Migration to: no migration Exacerbating factors: eating and other (urinating) Associated Symptoms: Reports heartburn; Denies bloating, chills, GI cramping, diarrhea, fever(s), hematochezia, hematuria, hematemesis, melena, nausea, syncope and vomiting Treatments prior to arrival: antacids and other (antibiotics ) Related Data: Patient : No Review of Systems Const: Denies: fever(s), chills, body aches, fatigue or malaise Eyes: Denies: change in vision or blurry vision Card: Denies: chest pain, palpitations, irregular heart rhythm, lightheadedness, syncope or dyspnea on exertion Resp: Denies: dyspnea, productive cough or pain on inspiration GI: Reports: abdominal pain and heartburn; Denies: nausea, vomiting, hematemesis, diarrhea, bloating, GI cramping, rectal pain, hematochezia or melena : Reports: urinary frequency and urinary urgency; Denies: flank pain, hematuria or pelvic pain Musc: Denies: neck pain, back pain, extremity pain, extremity swelling or joint pain Skin/Breast: Denies: rash Neuro: Denies: headache(s), numbness in extremities, weakness in extremities, sensory changes or dizziness PFSH ED PFSH: Medical History Atrophic vaginitis BPPV (benign paroxysmal positional vertigo) 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 Lichen sclerosus of vulva Osteopenia Surgical History History of bilateral tubal ligation History of cataract extraction with lens replacement History of D&C History of right knee joint replacement Family History Mother Dementia Grandfather Cancer kidney Denies family history of Colon cancer Ovarian cancer Diabetes Hypercholesteremia Breast cancer Hypertension Uterine cancer Thyroid disease Stroke Social History Smoking and tobacco status: never smoked Alcohol intake: never Substance/Drug Use: never Household members: spouse Marital status: Number of children: 2 Number of grandchildren: 3 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al status: employed 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: [employer] house Lorna/Hinduism: Gnosticism Agree to transfusion: Yes Additional social history: - Physical Exam Const: COMMON NORMALS: no acute distress, patient oriented x3, no limitations, alert and well nourished GENERAL APPEARANCE: cooperative ORIENTATION/CONSCIOUSNESS: Yes awake, Yes oriented to person, Yes oriented to place and Yes oriented to time HENMT: COMMON NORMALS: normocephalic and atraumatic HEAD & SCALP: normal to inspection, normocephalic and atraumatic Eye: COMMON NORMALS: no scleral icterus GENERAL EYE: appearance normal, both eyes and all related structures Neck/C-Spine: COMMON NORMALS: full ROM, no lymphadenopathy, supple and no meningeal signs Chest: COMMONS NORMALS: normal inspection of the chest and normal palpation of entire chest wall Resp: COMMON NORMALS: normal respiratory effort and clear to auscultation bilaterally AUSCULTATION: clear to auscultation bilaterally Cardio: COMMON NORMALS: regular rate and regular rhythm RATE: regular rate RHYTHM: regular rhythm GI: COMMON NORMALS: Normal to inspection, nondistended, normoactive bowel sounds present, Soft to palpation, No hepatosplenomegaly present and no masses INSPECTION: Yes normal to inspection AUSCULTATION: Yes normoactive bowel sounds PALPATION: Yes Soft to palpation, Yes Tenderness to palpation present (GI) (mild epigastric/suprapubic; non-surgical exam), No Guarding due to palpation present (GI), No Rigid due to palpation and Yes No hepatosplenomegaly present : COMMON NORMALS: Yes no CVA tenderness BLADDER/KIDNEY EXAM: Yes no CVA tenderness Back/Pelvis: COMMON NORMALS: no CVA tenderness and thoracic and lumbar spine normal to inspection Extremity: COMMON NORMALS: normal to inspection GENERAL: Yes normal exam except as noted Neuro: COMMON NORMALS: patient oriented x3 and gait normal SENSORIUM/ORIENTATION: Yes alert, Yes oriented to person, Yes oriented to place and Yes oriented to time MENINGEAL SIGNS: Yes no meningeal signs Skin: COMMON NORMALS: no rashes or lesions noted GENERAL SKIN EXAM: no rashes or lesions noted Course Vital Signs: Vital signs: Vital Signs Temperature 97.8 F 01/27/23 08:59 Pulse Rate 75 01/27/23 11:00 Respiratory Rate 16 01/27/23 11:00 Blood Pressure 173/88 01/27/23 11:00 Pulse Oximetry 97 01/27/23 11:00 Oxygen Delivery Me thod Room Air 01/27/23 09:14 MDM - Abdominal Pain Medical Decision Making Patient reporting almost complete relief of her acid reflux/epigastric discomfort following a GI cocktail. Patient already takes pantoprazole daily. She has already been treating intermittently with Pepcid. We will add Carafate. She can take Maalox as needed at home as well. Recent urine culture from primary care grew superficial fausto. She has been on now 2 rounds of antibiotics without any improvement in her symptoms. Her urine today is clear. At this time I do not feel like symptoms are related to a UTI. She did complain of a lot of pressure and feeling like she is sitting on a balloon sometimes. Mentioned possibility of bladder prolapse symptoms. She is requesting referral to [facility] Gillespie at the [facility] clinic for further evaluation. I think this is reasonable as a starting place. Symptoms could also be consistent with an overactive bladder syndrome given her frequency, urgency, and pressure. We will trial her on some oxybutynin in the meantime. Assess for improvement and can guide treatment following this. Lab Data 01/27/23 09:01/27/23 Labs/Radiology: Radiology Impressions Abdomen X-Ray 01/27/23: IMPRESSION: Findings suspicious for generalized constipation. Laboratory Results WBC 5.24 10^3/uL (3.29-11.43) 01/27/23: RBC 4.57 10^6/uL (3.85-5.65) 01/27/23: Hgb 13.40 g/dL (11.27-16.99) 01/27/23: Hct 40.0 % (36-47) 01/27/23: MCV 87.5 fl (85-98) 01/27/23: MCH 29.3 pg (27-33) 01/27/23 MCHC 33.5 g/dL (30-55) 01/27/23: RDW 12.3 % (12.1-15.1) 01/27/23: Plt Count 196 10^3/cmm (157-399) 01/27/23 MPV 10.8 fL (7.4-10.4) H 01/27/23: Neut % (Auto) 56.4 % 01/27/23: Lymph % (Auto) 33.4 % 01/27/23: [place] % (Auto) 7.1 % 01/27/23: Eos % (Auto) 1.9 % 01/27/23 Baso % (Auto) 1.0 % 01/27/23 Neut # (Auto) 2.96 10^3/uL (1.8-7.7) 01/27/23 Lymph # (Auto) 1.8 10^3/uL (0.8-4.8) 01/27/23: [place] # (Auto) 0.4 10^3/uL (0.2-0.9) 01/27/23: Eos # (Auto) 0.1 10^3/uL (0.0-0.8) 01/27/23 09:29 Baso # (Auto) 0.1 10^3/uL (0.0-0.1) 01/27/23 09:29 Nucleated RBC % (auto) 0 % 01/27/23 09: Nucleated RBCs # 0.0 /100WBC 01/27/23 09:29 Sodium 140 mmol/L (136-145) 01/27/23 09:29 Potassium 4.0 mmol/L (3.5-5.1) 01/27/23 09:29 Chloride 106 mmol/L (98-107) 01/27/23 09:29 Carbon Dioxide 23 mmol/L (22-29) 01/27/23 09: Anion Gap 15.0 (5-19) 01/27/23 09:29 BUN 13 mg/dL (8-23) 01/27/23 09:29 Creatinine 0.9 mg/dL (0.5-0.9) 01/27/23 09:29 GFR Calculation Not Reportable 01/27/23 09:29 Glucose 94 mg/dL (65-115) 01/27/23 09:29 Calculated Osmolality 290 mOsm/kg (285-295) 01/27/23 09:29 Calcium 9.4 mg/dL (8.5-10.5) 01/27/23 09:29 Total Bilirubin 1.0 mg/dL (0.15-1.2) 01/27/23 09:29 AST 23 U/L (0-32) 01/27/23 09: ALT 19 U/L (0-33) 01/27/23 09:29 Alkaline Phosphatase 89 U/L (35-105) 01/27/23 09:29 Total Protein 6.9 g/dL (6.6-8.7) 01/27/23 09:29 Albumin 4.3 g/dL (3.5-5.2) 01/27/23 09:29 Globulin 2.6 g/dL (1.3-4.6) 01/27/23 09:29 Lipase 37 U/L (13-60) 01/27/23 09:29 Urine Color Yellow (Yellow) 01/27/23 09:20 Urine Appearance Clear (CLEAR) 01/27/23 09:20 Urine pH 5 (5-7) 01/27/23 09:20 Ur Specific [place] 1.005 (1.005-1.030) 01/27/23 09:20 Urine Protein Neg (Negative) 01/27/23 09:20 Urine Glucose (UA) Norm (Normal) 01/27/23 09:20 Urine Ketones Negative (Negative) 01/27/23 09:20 Urine Blood Neg (Negative) 01/27/23 09:20 Urine Nitrate Negative (Negative) 01/27/23 09:20 Urine Bilirubin Neg (Negative) 01/27/23 09:20 Urine Urobilinogen Norm mg/dL (Negative) 01/27/23 09:20 Ur Leukocyte Esterase Negative (Negative) 01/27/23 09:20 All radiology interpretation(s) finalized by discharge Discharge Plan Discharge Patient Disposition: Home Clinical Impression: Lower urinary tract symptoms Acid reflux Qualifiers: Esophagitis presence: esophagitis presence not specified Qualified Code(s): K21 .9 - Gastro-esophageal reflux disease without esophagitis Condition: Stable Prescriptions: New oxybutynin chloride 5 mg tablet 5 mg PO BID PRN (Reason: bladder spasms) Qty: 30 0RF Carafate 100 mg/mL suspension 1 g PO TID 28 Days Qty: 840 0RF No Action pantoprazole 40 mg tablet,delayed release (DR/EC) 40 mg PO DAILY Qty: 90 1RF ciprofloxacin HCl 500 mg tablet 500 mg PO BID Qty: 14 0RF Discharge Orders: Discharge ED (Routine); Ordered 01/27/23 Ordered By: Kristine Viveros Referrals: Kaley Gonzalez MD [Primary Care Provider] - Activity Restrictions/Additional Instructions: As we discussed I will place you on a medication for the acid reflux that you may take in addition to your prescribed Protonix. You indicated that the GI cocktail here significantly helped your acid reflux symptoms. As we discussed this did have Maalox in it that is available [id number]. You may take 10 mL up to 4 times a day as needed (preferably 1 to 3 hours after meals and at bedtime). Acid reflux is still not controlled with these medications please take to your primary care provider in regards to further evaluation. As we discussed your urine today is clear. Your most recent urine culture did not grow bacteria. I do not believe your urinary symptoms are secondary to a urinary tract infection at this time. We discussed other etiologies such as possible bladder prolapse or overactive bladder syndrome. We spoke about referring you to [facility] the [facility] for further evaluation of possible bladder prolapse. We will trial you on a medication to help with possible overactive bladder symptoms. Please let women's health or primary care know if medication this helps as this may guide further treatment/evaluation. Coding Level of Care Code ED Guest Service Supervisor for Cris Wyatt
[2023-01-27 09:14] VITALS: BP 173/88; PULSE 75; RESP 16; O2SAT 97
[2023-01-27] MEDS: lidocaine 2% viscous 15 ML, aluminum-mag hydrox-simethicon 30 ML, sucralfate oral liq 1 GM PO (09:31)
[2023-01-27 09:33] LABS: Add Urine Microscopic? NO; Charge for UA Resulting for Rev
[2023-01-27 09:39] LABS: Basophils # 0.1 10^3/uL (0.0-0.1); Eosinophils # 0.1 10^3/uL (0.0-0.8); Eosinophils % 1.9 %; Lymphocytes # 1.8 10^3/uL (0.8-4.8); Lymphocytes % 33.4 %; Mean Corpuscular HGB Conc 33.5 g/dL (30-55); Mean Corpuscular Hemoglobin 29.3 pg (27-33); Mean Corpuscular Volume 87.5 fl (85-98); Mean Platelet Volume 10.8 fL (7.4-10.4); Monocytes # 0.4 10^3/uL (0.2-0.9); Monocytes % 7.1 %; Neutrophils # 2.96 10^3/uL (1.8-7.7); Neutrophils % 56.4 %; Nucleated Red Blood Cells % 0 %; Platelet Count 196 10^3/cmm (157-399); Red Blood Count 4.57 10^6/uL (3.85-5.65); Red Cell Distribution Width 12.3 % (12.1-15.1); White Blood Count 5.24 10^3/uL (3.29-11.43)
[2023-01-27 09:49] LABS: Bilirubin Urine Neg (Negative); Blood Urine Neg (Negative); Glucose Urine UA Norm (Normal); Ketones Urine Negative (Negative); Leukocyte Esterase Urine Negative (Negative); Nitrate Urine Negative (Negative); Protein Urine Neg (Negative); Specific Gravity, Urine 1.005 (1.005-1.030); Urine Appearance Clear (CLEAR); Urine Color Yellow (Yellow); Urobilinogen Urine Norm (Negative); pH Urine 5 (5-7)
[2023-01-27 09:56] LABS: Alanine Aminotransferase 19 U/L (0-33); Albumin Level 4.3 g/dL (3.5-5.2); Alkaline Phosphatase 89 U/L (35-105); Aspartate Amino Transferase 23 U/L (0-32); Blood Urea Nitrogen 13 mg/dL (8-23); Calcium 9.4 mg/dL (8.5-10.5); Carbon Dioxide 23 mmol/L (22-29); Chloride 106 mmol/L (98-107); Globulin 2.6 g/dL (1.3-4.6); Glucose 94 mg/dL (65-115); Lipase 37 U/L (13-60); Osmolality Calculated 290 mOsm/kg (285-295); Sodium 140 mmol/L (136-145); Total Protein 6.9 g/dL (6.6-8.7)
[2023-01-27 11:00] VITALS: BP 173/88; PULSE 75; RESP 16; O2SAT 97
--- NOTE | 2023-01-28 09:18 | PC.SOCIAL ---
SANDWICH PEDDLER F/u Referral message sent to [facility] at this time. Clinic to contact patient with appt date/time.
== END 2023-01-27 11:01 | disposition home or self-care (01) ==
PROVIDERS: Emergency Provider Physician Assistant; PCP Family Medicine
DX: K21.9 Gastro-esophageal reflux disease without esophagitis (principal); R39.15 Urgency of urination; R35.0 Frequency of micturition; R30.9 Painful micturition, unspecified
CPT/HCPCS: 36415; 74019; 80053; 81003; 83690; 85025; 99284

== ENCOUNTER 2023-01-30 15:57 | Emergency (ER) | payer MEDICARE, SELFPAY ==
[2023-01-30 16:05] VITALS: BP 157/74; PULSE 80; RESP 16; TEMP 36.5; O2SAT 95
--- NOTE | 2023-01-30 16:45 | ECG_ITS ---
[facility] Test Date: 2023-01-30 Pat Name: Susie Gonzales Department: Room: Gender: Female Caul Dresser: : 1950 Requested By: Farooq Goodman Order Number: [id number] Dee Dee MD: Mena Lay M.D. Measurements Intervals [place] Rate: 67 P: 44 [place]: 181 QRS: 4 QRSD: 87 T: 47 QT: 393 QTc: 417 Interpretive Statements SINUS RHYTHM LOW QRS VOLTAGE IN PRECORDIAL LEADS [QRS DEFLECTION < 1.0 mV IN CHEST LEADS] POSSIBLE ANTERIOR MYOCARDIAL INFARCTION , PROBABLY OLD [30 ms Q WAVE IN V3/V4, OR R < 0.2 mV IN V4] Compared to ECG 12/12/2021 05:43:00 Low QRS voltage now present Myocardial infarct finding now present Electronically Signed On 01-31-2023 5:23:35 CDT by Mena Lay M.D. [id number]
--- NOTE | 2023-01-30 16:45 | XRR_ITS ---
PROCEDURE INFORMATION: Exam: XR Chest Exam date and time: 01/30/2023 5:15 PM Age: 73 years old Clinical indication: Cough and dyspnea; Additional info: Dyspnea/cough TECHNIQUE: Imaging protocol: Radiologic exam of the chest. Views: 1 view. COMPARISON: CR XR chest 2V* [id number] 11/01/2021 12:34 PM FINDINGS: Lungs: Linear atelectasis or scarring in the left lower lobe. Stable calcified granuloma in the left lower lobe. Pleural spaces: No pleural effusion. No pneumothorax. Heart/Mediastinum: The cardiac silhouette is mildly enlarged. Mediastinal contours are unremarkable. Bones/joints: Unremarkable for age. XR/XR chest 1V portable [id number] IMPRESSION: 1. Linear atelectasis or scarring in the left lower lobe. 2. Incidental/nonacute findings are listed in the report.
--- NOTE | 2023-01-30 16:51 | W.ED.ABDPA2 ---
HPI - Abdominal Pain General: Chief Complaint: Abdominal Pain Stated Complaint: acid reflux issues Time Seen by Provider: 01/30/23 16:39 Source: patient Mode of arrival: ambulatory History of Present Illness: 73-year-old female presents emergency room complaining of reflux symptoms. She is having progressively worsening symptoms she had a GI cocktail when she was here earlier this week which relieved her symptoms she has only been taking her pantoprazole has not been taking it twice a day and has not been using the Carafate. She has an appointment for follow-up with Brad for complaints of prolapsed bladder she denies any dysuria or frequency any other abdominal pain she denies hematochezia melena hematemesis coffee-ground emesis no chest pain or shortness of breath MD elicited complaint: abdominal pain Pertinent past history: other (Gastroesophageal reflux disease) Onset (ago): week(s) Location: Epigastric Quality: cramping Radiation: none Exacerbating factors: nothing Relieving factors: nothing Associated Symptoms: Reports GI cramping; Denies anorexia, belching, bloating, change in bowel habits, change in stool character, chills, coffee ground emesis, constipation, diarrhea, dyspepsia, dysuria, excessive flatus, fever(s), heartburn, hematochezia, hematuria, hematemesis, fecal incontinence, loose stools, melena, nausea, poor appetite, syncope and vomiting Review of Systems Const: Denies: fever(s) or chills ENMT: Denies: throat pain, ear or mastoid pain, nasal discharge or nasal congestion Card: Denies: syncope Resp: Denies: dyspnea, productive cough or non-productive cough GI: Reports: GI cramping; Denies: nausea, vomiting, hematemesis, coffee ground emesis, heartburn, diarrhea, constipation, bloating, belching, excessive flatus, fecal incontinence, change in bowel habits, change in stool character, hematochezia or melena : Denies: dysuria or hematuria Skin/Breast: Denies: rash or pruritus PFSH ED PFSH: Medical History Atrophic vaginitis BPPV (benign paroxysmal positional vertigo) 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 Lichen sclerosus of vulva Osteopenia Surgical History History of bilateral tubal ligation History of cataract extraction with lens replacement History of D&C History of right knee joint replacement Family History Mother Dementia Grandfather Cancer kidney Denies family history of Colon cancer Ovarian cancer Diabetes Hypercholesteremia Breast cancer Hypertension Uterine cancer Thyroid disease Stroke Social History Smoking and tobacco status: never smoked Alcohol intake: never Substance/Drug Use: never Household members: spouse Marital status: Number of children: 2 Number of grandchildren: 3 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al status: employed 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: [employer] Lorna/Hoahaoism: Nondenominational Agree to transfusion: Yes Additional social history: - Physical Exam Const: GENERAL APPEARANCE: cooperative and comfortable ORIENTATION/CONSCIOUSNESS: Yes awake, Yes oriented to person, Yes oriented to place and Yes oriented to time HENMT: COMMON NORMALS: normocephalic, atraumatic and hearing grossly normal bilaterally HEAD & SCALP: normocephalic and atraumatic Resp: COMMON NORMALS: normal respiratory effort, No retractions, No use of accessory muscles and clear to auscultation bilaterally AUSCULTATION: clear to auscultation bilaterally Cardio: COMMON NORMALS: regular rate, regular rhythm and No murmurs present (Cardio) RATE: regular rate RHYTHM: regular rhythm GI: COMMON NORMALS: Soft to palpation and No hepatosplenomegaly present AUSCULTATION: Yes normoactive bowel sounds PALPATION: Yes Soft to palpation, No Tenderness to palpation present (GI), No Guarding due to palpation present (GI) and Yes No hepatosplenomegaly present Extremity: COMMON NORMALS: normal to inspection, capillary refill normal, no clubbing, cyanosis or edema, no calf tenderness and no pedal edema Neuro: SENSORIUM/ORIENTATION: Yes oriented to person, Yes oriented to place and Yes oriented to time Skin: COMMON NORMALS: no rashes or lesions noted GENERAL SKIN EXAM: no rashes or lesions noted Course Vital Signs: Vital signs: Vital Signs Temperature 97.7 F 01/30/23 16:05 Pulse Rate 80 01/30/23 16:05 Respiratory Rate 16 01/30/23 16:05 Blood Pressure 157/74 01/30/23 16:05 Pulse Oximetry 95 01/30/23 16:05 Oxygen Delivery Me thod Room Air 01/30/23 16:05 MDM - Abdominal Pain Medical Decision Making Labs reviewed. Abdominal exam unremarkable. Talking to the patient she has only been taking the pantoprazole once daily will increase to twice daily and add the Carafate gave her new prescription follow-up as planned for the cystocele and with surgery for possible EGD. Medical Records I reviewed the patient's medical records. Lab Data I reviewed the patient's lab results. 01/30/23 16:56 01/30/23 16:56 Labs/Radiology: Laboratory Results WBC 6.16 10^3/uL (3.29-11.43) 01/30/23 16:56 RBC 4.50 10^6/uL (3.85-5.65) 01/30/23 16:56 Hgb 13.30 g/dL (11.27-16.99) 01/30/23 16:56 Hct 39.3 % (36-47) 01/30/23 16:56 MCV 87.3 fl (85-98) 01/30/23 16:56 MCH 29.6 pg (27-33) 01/30/23 16:56 MCHC 33.8 g/dL (30-55) 01/30/23 16:56 RDW 12.6 % (12.1-15.1) 01/30/23 16:56 Plt Count 186 10^3/cmm (157-399) 01/30/23 16:56 MPV 10.9 fL (7.4-10.4) H 01/30/23 16:56 Neut % (Auto) 59.0 % 01/30/23 16:56 Lymph % (Auto) 29.1 % 01/30/23 16:56 Bland % (Auto) 8.9 % 01/30/23 16:56 Eos % (Auto) 1.9 % 01/30/23 16:56 Baso % (Auto) 0.8 % 01/30/23 16:56 Neut # (Auto) 3.63 10^3/uL (1.8-7.7) 01/30/23 16:56 Lymph # (Auto) 1.8 10^3/uL (0.8-4.8) 01/30/23 16:56 Bland # (Auto) 0.6 10^3/uL (0.2-0.9) 01/30/23 16:56 Eos # (Auto) 0.1 10^3/uL (0.0-0.8) 01/30/23 16:56 Baso # (Auto) 0.1 10^3/uL (0.0-0.1) 01/30/23 16:56 Nucleated RBC % (auto) 0 % 01/30/23 16:56 Nucleated RBCs # 0.0 /100WBC 01/30/23 16:56 Sodium 140 mmol/L (136-145) 01/30/23 16:56 Potassium 3.9 mmol/L (3.5-5.1) 01/30/23 16:56 Chloride 104 mmol/L (98-107) 01/30/23 16:56 Carbon Dioxide 26 mmol/L (22-29) 01/30/23 16:56 Anion Gap 13.9 (5-19) 01/30/23 16:56 BUN 12 mg/dL (8-23) 01/30/23 16:56 Creatinine 0.9 mg/dL (0.5-0.9) 01/30/23 16:56 GFR Calculation Not Reportable 01/30/23 16:56 Glucose 82 mg/dL (65-115) 01/30/23 16:56 Calculated Osmolality 289 mOsm/kg (285-295) 01/30/23 16:56 Calcium 9.2 mg/dL (8.5-10.5) 01/30/23 16:56 Total Bilirubin 0.9 mg/dL (0.15-1.2) 01/30/23 16:56 AST 22 U/L (0-32) 01/30/23 16:56 ALT 18 U/L (0-33) 01/30/23 16:56 Alkaline Phosphatase 84 U/L (35-105) 01/30/23 16:56 Total Protein 6.8 g/dL (6.6-8.7) 01/30/23 16:56 Albumin 4.3 g/dL (3.5-5.2) 01/30/23 16:56 Globulin 2.5 g/dL (1.3-4.6) 01/30/23 16:56 Lipase 36 U/L (13-60) 01/30/23 16:56 No radiology studies performed this visit Discharge Plan Discharge Patient Disposition: Home Clinical Impression: GERD (gastroesophageal reflux disease) Condition: Stable Prescriptions: New Carafate 1 gram tablet 1 g PO Q6H 84 Days Qty: 336 0RF pantoprazole 40 mg tablet,delayed release (DR/EC) 40 mg PO BID 14 Days Qty: 28 0RF No Action pantoprazole 40 mg tablet,delayed release (DR/EC) 40 mg PO DAILY Qty: 90 1RF ciprofloxacin HCl 500 mg tablet 500 mg PO BID Qty: 14 0RF oxybutynin chloride 5 mg tablet 5 mg PO BID PRN (Reason: bladder spasms) Qty: 30 0RF Carafate 100 mg/mL suspension 1 g PO TID 28 Days Qty: 840 0RF Discharge Orders: Discharge ED (Routine); Ordered 01/30/23 Ordered By: Farooq Keys Referrals: Kaley Gonzalez MD [Primary Care Provider] - Discharge Diet: As Directed Discharge Activity: Resume usual activity Patient Instructions: Diet for Stomach Ulcers and Gastritis (ED), Opioid Safety, Pain Management Activity Restrictions/Additional Instructions: Follow-up with gynecology for the complaint of bladder prolapse, follow-up with primary care for further evaluation in your stomach if symptoms do not improve. Coding Level of Care Code ED Fractionation Supervisor for Cris Wyatt
[2023-01-30 17:03] LABS: Basophils # 0.1 10^3/uL (0.0-0.1); Basophils % 0.8 %; Eosinophils # 0.1 10^3/uL (0.0-0.8); Eosinophils % 1.9 %; Hematocrit 39.3 % (36-47); Lymphocytes # 1.8 10^3/uL (0.8-4.8); Lymphocytes % 29.1 %; Mean Corpuscular HGB Conc 33.8 g/dL (30-55); Mean Corpuscular Hemoglobin 29.6 pg (27-33); Mean Corpuscular Volume 87.3 fl (85-98); Mean Platelet Volume 10.9 fL (7.4-10.4); Monocytes # 0.6 10^3/uL (0.2-0.9); Monocytes % 8.9 %; Neutrophils # 3.63 10^3/uL (1.8-7.7); Nucleated Red Blood Cells % 0 %; Platelet Count 186 10^3/cmm (157-399); Red Cell Distribution Width 12.6 % (12.1-15.1); White Blood Count 6.16 10^3/uL (3.29-11.43)
[2023-01-30 17:22] LABS: Alanine Aminotransferase 18 U/L (0-33); Albumin Level 4.3 g/dL (3.5-5.2); Alkaline Phosphatase 84 U/L (35-105); Anion Gap 13.9 (5-19); Aspartate Amino Transferase 22 U/L (0-32); Blood Urea Nitrogen 12 mg/dL (8-23); Calcium 9.2 mg/dL (8.5-10.5); Carbon Dioxide 26 mmol/L (22-29); Chloride 104 mmol/L (98-107); Creatinine Clr Calc Pharmacy 62.8728; Globulin 2.5 g/dL (1.3-4.6); Glucose 82 mg/dL (65-115); Lipase 36 U/L (13-60); Osmolality Calculated 289 mOsm/kg (285-295); Potassium 3.9 mmol/L (3.5-5.1); Sodium 140 mmol/L (136-145); Total Bilirubin 0.9 mg/dL (0.15-1.2); Total Protein 6.8 g/dL (6.6-8.7)
[2023-01-30] MEDS: lidocaine 2% viscous 15 ML, aluminum-mag hydrox-simethicon 30 ML, sucralfate oral liq 1 GM PO (18:06)
== END 2023-01-30 18:12 | disposition home or self-care (01) ==
PROVIDERS: Emergency Provider Family Medicine; PCP Family Medicine
DX: K21.9 Gastro-esophageal reflux disease without esophagitis (principal)
CPT/HCPCS: 36415; 71045; 80053; 83690; 85025; 93005; 99285

== ENCOUNTER → 2023-02-10 14:51 | Outpatient (BNVA) | payer MEDICARE, SELFPAY | PROVIDERS: PCP Family Medicine; Visit Provider Family Medicine | DX: R30.0 Dysuria (principal); R10.11 Right upper quadrant pain; K21.9 Gastro-esophageal reflux disease without esophagitis; R39.9 Unspecified symptoms and signs involving the genitourinary system; Z23 Encounter for immunization | CPT/HCPCS: 81000; 87086 ==

== ENCOUNTER 2023-02-14 07:43 | Outpatient (CLI) | payer MEDICARE, SELFPAY ==
--- NOTE | 2023-02-14 08:45 | US_ITS ---
WS: [id number] RIGHT UPPER QUADRANT ULTRASOUND HISTORY: postprandial ruq pain COMPARISON: None available. Liver: 20.5 cm in length. Moderately enlarged liver. No mass identified. Coarse echotexture from hepa tic steatosis. No bile duct dilatation. Portal Vein: Normal hepatopetal flow with monophasic waveform. Gallbladder: Normally distended gallbladder with no stones or wall thickening. CBD: 0.3 cm Pancreas: Normal size and echogenicity. Right kidney: 11.3 cm in length. Normal size and echogenicity. No hydronephrosis or mass. Aorta and IVC: Unremarkable abdominal aorta and IVC. No ascites. IMPRESSION: 1. Moderate hepatic steatosis and hepatomegaly. 2. No bile duct dilatation. 3. Negative gallbladder.
== END 2023-02-14 07:44 | disposition home or self-care (01) ==
PROVIDERS: PCP Family Medicine; Visit Provider Family Medicine
DX: K76.0 Fatty (change of) liver, not elsewhere classified (principal); R16.0 Hepatomegaly, not elsewhere classified; R10.11 Right upper quadrant pain
CPT/HCPCS: 76705

== ENCOUNTER 2023-02-24 07:30 | Outpatient (CLI) | payer MEDICARE, SELFPAY ==
--- NOTE | 2023-02-24 08:00 | NM_ITS ---
WS: [id number] NUCLEAR MEDICINE HIDA SCAN WITH GALLBLADDER EJECTION FRACTION HISTORY: postprandial ruq pain, normal gallbladder us COMPARISON: Gallbladder ultrasound 02/14/2023 TECHNIQUE: The patient was intravenously injected with 5.1 mCi of TC99m Mebrofenin. Immediate imaging over the right upper quadrant was followed by 5 minute image and additional images for a total of 60 minutes. Normal uptake of radiotracer throughout the liver. Activity identified in the gallbladder at 15 minutes and well distended by 60 minutes. Activity in the proximal small bowel was seen by 50 minutes. Good washout of the radiotracer from the liver by 60 minutes. The patient then drank 8 ounces of Ensure Plus. Ejection fraction at 60 minutes was 89%. Normal GB ej ection fraction is 35-75%. Post fatty meal symptoms: None. IMPRESSION: 1. Normal HIDA scan. 2. Normal gallbladder ejection fraction.
== END 2023-02-24 07:31 | disposition home or self-care (01) ==
LOC: RAD 07:31
PROVIDERS: PCP Family Medicine; Visit Provider Family Medicine
DX: R10.11 Right upper quadrant pain (principal)
CPT/HCPCS: 78227; A9537

== ENCOUNTER → 2023-02-26 12:25 | Outpatient (BNVA) | payer MEDICARE, SELFPAY | PROVIDERS: PCP Family Medicine; Referring Provider Family Medicine; Visit Provider Surgery | DX: K21.9 Gastro-esophageal reflux disease without esophagitis (principal); R10.11 Right upper quadrant pain | CPT/HCPCS: 99204 ==

== ENCOUNTER 2023-03-07 09:05 | Day surgery (SDC) | payer MEDICARE, SELFPAY ==
[2023-03-07 09:53] VITALS: BP 144/92; PULSE 77; RESP 18; TEMP 36.3; O2SAT 96
[2023-03-07] MEDS: sodium chloride 0.9% 1,000 ML 30 ML IV (09:53)
[2023-03-07 09:57] VITALS: BMI 33.3
--- NOTE | 2023-03-07 10:03 | P.ANESASSM_ITS ---
Pre-Anesthetic Assessment Height/Weight: Height 1.65 m Weight 90.718 kg Temp Pulse Resp BP Pulse Ox O2 Del Method 97.3 F L 77 18 144/92 96 Room Air 03/07/23 09:53 03/07/23 09:53 03/07/23 09:53 03/07/23 09:53 03/07/23 09:53 03/07/23 09:53 Preop Diagnosis: GERD, ABDOMINAL PAIN SCREENING Operation Date: 03/07/23 10:30 Proposed Procedures p [id number] egd [id number] colon G0121 screen colon A risk K21.9,R10.11,Z12.11(Not Applicable) - DO cori Nance Colonoscopy(Not Applicable) - Donald Burt DO Familial anesthetic complications: NONE Was Beta Sanaz taken within 24 hours: N/A Was Clonidine taken within 24 hours: N/A Last intake: Intake Last Liquid Date 03/06/23 Last Liquid Time 22:00 Last Solid Date 03/05/23 Last Solid Time 17:30 Social No alcohol and No tobacco Exam alert, oriented x 3, clear to auscultation bilaterally and regular rate & rhythm Airway Submandibular: within normal limits Cervical ROM: within normal limits Mallampati: Class II Dentition: chipped (right front tooth) Pulmonary None reported CV/HEM None reported None reported Hepatic None reported GI Gastroesophageal Reflux Disease Abdominal pain Metabolic None reported Musc/skel Osteoarthritis/DJD Neuropsych None reported Anesthetic Plan ASA status: 2 Anesthesia: MAC Medications/Allergies Home Medications Medication Instructions Recorded Confirmed Last Taken Type pantoprazole 40 mg tablet,delayed 40 mg PO DAILY 02/21/23 03/05/23 03/05/23 History release ascorbic acid (vitamin C) 500 mg 500 mg PO DAILY 03/05/23 03/05/23 03/05/23 History tablet (Vitamin C) cholecalciferol (vitamin D3) 50 50 mcg PO DAILY 03/05/23 03/05/23 03/05/23 History mcg (2,000 unit) tablet (Vitamin D3) Allergies Allergy/AdvReac Type Severity Reaction Status Date / Time methotrexate Allergy hives Verified 03/07/23 09:59 Current Medications Generic Name Dose Route Start Last Admin Trade Name Freq PRN Reason Stop Dose Admin Sodium Chloride 1,000 mls @ 30 mls/hr 03/07/23 09:30 03/07/23 09:53 Sodium Chloride 0.9% IV 03/08/23 09:29 30 mls/hr .Q24H GLORIA Administration PFSH Anesthesia Medical History Atrophic vaginitis BPPV (benign paroxysmal positional vertigo) 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 Lichen sclerosus of vulva Osteopenia Surgical History History of bilateral tubal ligation History of cataract extraction with lens replacement History of D&C History of right knee joint replacement Family History Mother Dementia Grandfather Cancer kidney Denies family history of Colon cancer Ovarian cancer Diabetes Hypercholesteremia Breast cancer Hypertension Uterine cancer Thyroid disease Stroke Social History Smoking and tobacco/nicotine status: never used tobacco/nicotine Alcohol intake: never Substance/Drug Use: never Additional social history: - Household members: spouse Marital status: Number of children: 2 Number of grandchildren: 3 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al status: employed 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: [employer] Lorna/Hoahaoism: Taoism Agree to transfusion: Yes Data Anesthesia Cardiac Studies: No Data to Display
--- NOTE | 2023-03-07 10:31 | W.PM.OPSUD ---
Surgery/Procedure H&P Update DATE OF PROCEDURE: March 07, 2023 DATE H&P PERFORMED: 02/26/23 H&P UPDATE INFORMATION: I have reviewed H&P completed within last 30 days, I have examined patient prior to procedure and No changes to prior documentation PREOP DIAGNOSIS: GERD, ABDOMINAL PAIN SCREENING PLANNED PROCEDURE: Operation Date: 03/07/23 10:30 Proposed Procedures p [id number] egd [id number] colon G0121 screen colon A risk K21.9,R10.11,Z12.11(Not Applicable) - DO cori Nance Colonoscopy(Not Applicable) - Donald Burt DO
[2023-03-07 11:00] VITALS: BP 97/44; PULSE 58; RESP 14; TEMP 36.2; O2SAT 98
[2023-03-07 11:15] VITALS: BP 110/82; PULSE 68; RESP 16; O2SAT 95
--- NOTE | 2023-03-07 12:40 | ANE.PACU2 ---
Inpatient post-anesthesia follow up: Airway intact: Yes Vital signs: Temperature 97.1 F Pulse Rate 68 Respiratory Rate 16 Blood Pressure 110/82 Pulse Oximetry 95 Oxygen Delivery Me thod Room Air Oxygen Flow Rate 5 Fraction of Inspir ed Oxygen Hydration adequate: Yes Nausea and vomiting: No Pain level: 2 Mental status: Baseline
== END 2023-03-07 11:46 | disposition home or self-care (01) ==
PROVIDERS: PCP Family Medicine; Visit Provider Surgery
PROC: 0DJ08ZZ Inspection of Upper Intestinal Tract, Via Natural or Artificial Opening Endoscopic (ICD-10-PCS; CPT 43235; principal; 2023-03-07 10:30)
PROC: 0DJD8ZZ Inspection of Lower Intestinal Tract, Via Natural or Artificial Opening Endoscopic (ICD-10-PCS; CPT 45378; 2023-03-07 10:30)
DX: Z12.11 Encounter for screening for malignant neoplasm of colon (principal); K21.9 Gastro-esophageal reflux disease without esophagitis; R10.11 Right upper quadrant pain; D12.3 Benign neoplasm of transverse colon; K29.80 Duodenitis without bleeding; K29.70 Gastritis, unspecified, without bleeding
CPT/HCPCS: 43239; 45385; 88305; J2704; J7030

== ENCOUNTER → 2023-03-18 12:25 | Outpatient (BNVA) | payer MEDICARE, SELFPAY | PROVIDERS: PCP Family Medicine; Visit Provider Surgery | DX: K40.90 Unilateral inguinal hernia, without obstruction or gangrene, not specified as recurrent; K82.8 Other specified diseases of gallbladder | CPT/HCPCS: 99214 ==

== ENCOUNTER → 2023-03-25 12:18 | Outpatient (BNVA) | payer MEDICARE, SELFPAY | PROVIDERS: PCP Family Medicine; Visit Provider Family Medicine | DX: E55.9 Vitamin D deficiency, unspecified (principal); Z00.00 Encounter for general adult medical examination without abnormal findings; K40.90 Unilateral inguinal hernia, without obstruction or gangrene, not specified as recurrent | CPT/HCPCS: 80048; 82306 ==

== ENCOUNTER 2023-03-30 07:22 | Emergency (ER) | payer MEDICARE, MEDICAID, SELFPAY ==
[2023-03-30 07:28] VITALS: BP 167/79; PULSE 72; RESP 18; TEMP 36.6; O2SAT 98; BMI 33.3
--- NOTE | 2023-03-30 07:35 | CTR_ITS ---
PROCEDURE INFORMATION: Exam: CT Abdomen And Pelvis With Contrast Exam date and time: 03/30/2023 8:17 AM Age: 73 years old Clinical indication: Abdominal pain; Generalized; Additional info: Abd pain TECHNIQUE: Imaging protocol: Computed tomography of the abdomen and pelvis with contrast. Radiation optimization: All CT scans at this facility use at least one of these dose optimization techniques: automated exposure control; mA and/or kV adjustment per patient size (includes targeted exams where dose is matched to clinical indication); or iterative reconstruction. Contrast material: OMNI 350; Contrast volume: 100 ml; Contrast route: INTRAVENOUS (IV); REPORTING DATA: Count of CT and Cardiac NM exams in prior 12 months: This patient has received 0 known CTs and 0 known cardiac nuclear medicine studies in the 12 months prior to the current study. COMPARISON: CR XR abdomen min 2V [id number] 01/27/2023 9:19 AM RADIATION DOSE METRICS: Total DLP (mGy-cm): 819.76 FINDINGS: Lungs: There is a benign calcified granuloma in the left lower lobe. Diaphragm: There is a small sliding-type hiatal hernia. 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 The liver is not pathologically enlarged. Gallbladder and bile ducts: The gallbladder is normal. There is no biliary dilation. Pancreas: Moderate atrophy and mild ductal dilation in the pancreatic head and neck. Pancreatic parenchymal enhancement pattern is normal. No mass or cyst. No sign of pancreatitis. Spleen: The spleen is unremarkable. Adrenal glands: The adrenal glands are unremarkable. Kidneys and ureters: The kidneys are unremarkable. No hydronephrosis or stones. No ureteral dilation. Stomach and bowel: The stomach is decompressed, preventing meaningful evaluation of wall thickness. The small bowel is nondilated. The colon is unremarkable. Appendix: The appendix is normal. Intraperitoneal space: There is no free air or significant intraperitoneal free fluid. Vasculature: There is mild aortic atherosclerotic disease. The portal, splenic and superior mesenteric veins are patent. Lymph nodes: There is no lymphadenopathy in the retroperitoneum, mesentery, pelvis or inguinal regions. Urinary bladder: The urinary bladder is decompressed, preventing meaningful evaluation of wall thickness. Reproductive: The uterus is unremarkable. There is no adnexal mass or large cyst. Bones/joints: There is mild degenerative disease in the lumbar spine. The pelvis and hips are unremarkable. Soft tissues: The abdominal wall is intact. CT/CT abdomen pelvis w con* [id number] IMPRESSION: 1. No acute findings. 2. Incidental findings above.
[2023-03-30 07:56] LABS: Basophils % 0.7 %; Eosinophils # 0.1 10^3/uL (0.0-0.8); Eosinophils % 2.2 %; Hematocrit 42.5 % (36-47); Lymphocytes # 1.5 10^3/uL (0.8-4.8); Lymphocytes % 32.8 %; Mean Corpuscular HGB Conc 32.9 g/dL (30-55); Mean Corpuscular Volume 88.2 fl (85-98); Mean Platelet Volume 12.7 fL (7.4-10.4); Monocytes # 0.4 10^3/uL (0.2-0.9); Monocytes % 7.6 %; Neutrophils # 2.61 10^3/uL (1.8-7.7); Neutrophils % 56.5 %; Nucleated Red Blood Cells % 0 %; Platelet Count 103 10^3/cmm (157-399); Red Blood Count 4.82 10^6/uL (3.85-5.65); Red Cell Distribution Width 12.5 % (12.1-15.1); White Blood Count 4.61 10^3/uL (3.29-11.43)
[2023-03-30 08:06] VITALS: RESP 17; O2SAT 97
[2023-03-30] MEDS: ondansetron 2 mg/ML SDV 2 mL 4 MG IVP (08:06)
[2023-03-30] MEDS: morphine 4 mg/mL SDV 1 mL IVP (08:06)
--- NOTE | 2023-03-30 08:08 | ED_ITS ---
HPI - Abdominal Pain 2 General: Chief Complaint: Abdominal Pain Stated Complaint: abd pain Time Seen by Provider: 03/30/23 07:32 History of Present Illness: 73-year-old female who awoke with right lower quadrant abdominal pain this morning. She has been nauseated. No vomiting. No fever. No diarrhea. No blood in the stool. She has had upper and lower right-sided pain for a while. She is scheduled for surgery tomorrow for a right sided lower abdominal hernia, as well as a cholecystectomy. She notes that she could barely walk the pain was so bad this morning that she felt she had to come to the hospital. She says that her right upper quadrant is not painful at all this morning. Associated Symptoms: Denies chills, diarrhea, fever(s), hematochezia and vomiting Review of Systems 2 Const: Denies: fever(s), chills or body aches Eyes: Denies: change in vision Card: Denies: chest pain or palpitations Resp: Denies: dyspnea, productive cough, non-productive cough or wheezing GI: Denies: vomiting, diarrhea or hematochezia : Denies: difficulty voiding Skin/Breast: Denies: rash Neuro: Denies: headache(s), weakness in extremities, dizziness or confusion PFSH ED 2 PFSH: Medical History Atrophic vaginitis BPPV (benign paroxysmal positional vertigo) 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 Lichen sclerosus of vulva Osteopenia Surgical History History of bilateral tubal ligation History of cataract extraction with lens replacement History of D&C History of right knee joint replacement Family History Mother Dementia Grandfather Cancer kidney Denies family history of Colon cancer Ovarian cancer Diabetes Hypercholesteremia Breast cancer Hypertension Uterine cancer Thyroid disease Stroke Social History Smoking and tobacco/nicotine status: never used tobacco/nicotine Alcohol intake: never Substance/Drug Use: never Additional social history: - Household members: spouse Marital status: Number of children: 2 Number of grandchildren: 3 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al status: employed 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: [employer] Lorna/Advent: Confucianism Agree to transfusion: Yes Physical Exam 2 Const: COMMON NORMALS: no acute distress GENERAL APPEARANCE: cooperative; not ill appearing and not frail appearing HENMT: COMMON NORMALS: normocephalic, atraumatic and Normal external nose present HEAD & SCALP: normocephalic and atraumatic FACE & SINUS: normal facial exam and face symmetric NOSE: Normal external nose present Eye: COMMON NORMALS: Equal, round and reactive pupils present and EOMs intact bilaterally PUPIL: Yes Equal, round and reactive pupils present Neck/C-Spine: GENERAL: Yes trachea midline Chest: CHEST: Yes Symmetrical chest wall rise Resp: COMMON NORMALS: normal respiratory effort, No retractions, No use of accessory muscles and clear to auscultation bilaterally AUSCULTATION: clear to auscultation bilaterally Cardio: COMMON NORMALS: regular rate and regular rhythm RATE: regular rate RHYTHM: regular rhythm GI: COMMON NORMALS: Soft to palpation INSPECTION: No abdominal distension PALPATION: Yes Soft to palpation and Yes Tenderness to palpation present (GI) Details: RLQ Extremity: COMMON NORMALS: no pedal edema Neuro: FERDINAND COMA SCALE: document GCS findings Ferdinand coma scale eye opening: Spontaneous Ferdinand coma scale verbal response: Orientated Ferdinand coma scale motor response: Obey commands Ferdinand coma scale total score: 15 S ENSORY EXAM: Yes extremities (intact) Psych: COMMON NORMALS: speech normal SPEECH: Yes normal speech Skin: COMMON NORMALS: no rashes or lesions noted GENERAL SKIN EXAM: no rashes or lesions noted Course 2 Vital Signs: Vital signs: Vital Signs Temperature 97.9 F 03/30/23 07:28 Pulse Rate 72 03/30/23 07:28 Respiratory Rate 17 03/30/23 08:06 Blood Pressure 167/79 03/30/23 07:28 Pulse Oximetry 97 03/30/23 08:06 Oxygen Delivery Me thod Room Air 03/30/23 07:28 MDM - Abdominal Pain Medical Decision Making 73yo female scheduled for surgery in the morning here with RLQ pain. No fever. No leukocytosis. CRP is 3. Lab is unremarkable. Hernia not seen by radiology on CT scan. No acute findings. She'll be discharged to home to report back for OR in the morning. Lab Data 03/30/23 07:43 03/30/23 07:43 Labs/Radiology: Radiology Impressions Abdomen/Pelvis CT 03/30/23 07:35 IMPRESSION: 1. No acute findings. 2. Incidental findings above. Laboratory Results WBC 4.61 10^3/uL (3.29-11.43) 03/30/23 07:43 RBC 4.82 10^6/uL (3.85-5.65) 03/30/23 07:43 Hgb 14.00 g/dL (11.27-16.99) 03/30/23 07:43 Hct 42.5 % (36-47) 03/30/23 07:43 MCV 88.2 fl (85-98) 03/30/23 07:43 MCH 29.0 pg (27-33) 03/30/23 07:43 MCHC 32.9 g/dL (30-55) 03/30/23 07:43 RDW 12.5 % (12.1-15.1) 03/30/23 07:43 Plt Count 103 10^3/cmm (157-399) L 03/30/23 07:43 MPV 12.7 fL (7.4-10.4) H 03/30/23 07:43 Neut % (Auto) 56.5 % 03/30/23 07:43 Lymph % (Auto) 32.8 % 03/30/23 07:43 [place] % (Auto) 7.6 % 03/30/23 07:43 Eos % (Auto) 2.2 % 03/30/23 07:43 Baso % (Auto) 0.7 % 03/30/23 07:43 Neut # (Auto) 2.61 10^3/uL (1.8-7.7) 03/30/23 07:43 Lymph # (Auto) 1.5 10^3/uL (0.8-4.8) 03/30/23 07:43 [place] # (Auto) 0.4 10^3/uL (0.2-0.9) 03/30/23 07:43 Eos # (Auto) 0.1 10^3/uL (0.0-0.8) 03/30/23 07:43 Baso # (Auto) 0.0 10^3/uL (0.0-0.1) 03/30/23 07:43 Nucleated RBC % (auto) 0 % 03/30/23 07:43 Nucleated RBCs # 0.0 /100WBC 03/30/23 07:43 Sodium 141 mmol/L (136-145) 03/30/23 07:43 Potassium 4.0 mmol/L (3.5-5.1) 03/30/23 07:43 Chloride 105 mmol/L (98-107) 03/30/23 07:43 Carbon Dioxide 27 mmol/L (22-29) 03/30/23 07:43 Anion Gap 13.0 (5-19) 03/30/23 07:43 BUN 11 mg/dL (8-23) 03/30/23 07:43 Creatinine 1.0 mg/dL (0.5-0.9) H 03/30/23 07:43 GFR Calculation Not Reportable 03/30/23 07:43 Glucose 113 mg/dL (65-115) 03/30/23 07:43 Calculated Osmolality 292 mOsm/kg (285-295) 03/30/23 07:43 Calcium 9.5 mg/dL (8.5-10.5) 03/30/23 07:43 Total Bilirubin 1.3 mg/dL (0.15-1.2) H 03/30/23 07:43 AST 22 U/L (0-32) 03/30/23 07:43 ALT 18 U/L (0-33) 03/30/23 07:43 Alkaline Phosphatase 94 U/L (35-105) 03/30/23 07:43 C-Reactive Protein 3.0 mg/L (0.0-4.9) 03/30/23 07:43 Total Protein 7.1 g/dL (6.6-8.7) 03/30/23 07:43 Albumin 4.3 g/dL (3.5-5.2) 03/30/23 07:43 Globulin 2.8 g/dL (1.3-4.6) 03/30/23 07:43 Lipase 38 U/L (13-60) 03/30/23 07:43 Urine Color Yellow (Yellow) 03/30/23 08:09 Urine Appearance Sl hazy (CLEAR) A 03/30/23 08:09 Urine pH 7 (5-7) 03/30/23 08:09 Ur Specific Webb 1.010 (1.005-1.030) 03/30/23 08:09 Urine Protein Neg (Negative) 03/30/23 08:09 Urine Glucose (UA) Norm (Normal) 03/30/23 08:09 Urine Ketones Negative (Negative) 03/30/23 08:09 Urine Blood 2+ (Negative) H 03/30/23 08:09 Urine Nitrate Negative (Negative) 03/30/23 08:09 Urine Bilirubin Neg (Negative) 03/30/23 08:09 Urine Urobilinogen Norm mg/dL (Negative) 03/30/23 08:09 Ur Leukocyte Esterase Trace (Negative) H 03/30/23 08:09 Urine RBC 0-4 /hpf (0-2) H 03/30/23 08:09 Urine WBC 0-4 /hpf (0-5) H 03/30/23 08:09 Ur Squamous Epith Cells 10-15 /hpf (0-5) H 03/30/23 08:09 Amorphous Sediment Not Reportable 03/30/23 08:09 Urine Bacteria 1+ /hpf (NONE) H 03/30/23 08:09 All radiology interpretation(s) finalized by discharge Discharge Plan Discharge Patient Disposition: Home Clinical Impression: Abdominal pain, Right inguinal hernia Condition: Stable Prescriptions: New hydrocodone-acetaminophen 5-325 mg tablet 1 tab PO Q8H PRN (Reason: pain) Qty: 7 0RF No Action ascorbic acid (vitamin C) [Vitamin C] 500 mg Tablet 500 mg PO DAILY cholecalciferol (vitamin D3) [Vitamin D3] 50 mcg (2,000 unit) Tablet 50 mcg PO DAILY pantoprazole [Protonix] 40 mg tablet,delayed release (DR/EC) 40 mg PO BID 42 Days Qty: 84 1RF Discharge Orders: Discharge ED (Routine); Ordered 03/30/23 Ordered By: Joseph Moran Referrals: Kaley Gonzalez MD [Primary Care Provider] - 4-7 days Patient Instructions: Abdominal Pain (ED), Opioid Safety, Pain Management Activity Restrictions/Additional Instructions: Surgery tomorrow as scheduled. Pain medication as needed. Clear liquid diet today. Return for fever greater than 100, vomiting liquids or medications, other concerning symptoms in the meantime. Coding Level of Care Code ED Senior Applications Analyst for Cris Wyatt
[2023-03-30 08:19] LABS: Alanine Aminotransferase 18 U/L (0-33); Albumin Level 4.3 g/dL (3.5-5.2); Alkaline Phosphatase 94 U/L (35-105); Aspartate Amino Transferase 22 U/L (0-32); Blood Urea Nitrogen 11 mg/dL (8-23); Calcium 9.5 mg/dL (8.5-10.5); Carbon Dioxide 27 mmol/L (22-29); Chloride 105 mmol/L (98-107); Globulin 2.8 g/dL (1.3-4.6); Glucose 113 mg/dL (65-115); Lipase 38 U/L (13-60); Osmolality Calculated 292 mOsm/kg (285-295); Sodium 141 mmol/L (136-145); Total Bilirubin 1.3 mg/dL (0.15-1.2); Total Protein 7.1 g/dL (6.6-8.7)
[2023-03-30] MEDS: iohexol 350 mg/mL 500 mL Btl (per mL) IV (08:21)
[2023-03-30 08:40] LABS: Add Urine Culture? No; Add Urine Microscopic? YES; Bacteria Urine 1+ /hpf; Bilirubin Urine Neg (Negative); Blood Urine 2+ (Negative); Glucose Urine UA Norm (Normal); Ketones Urine Negative (Negative); Leukocyte Esterase Urine Trace (Negative); Nitrate Urine Negative (Negative); Protein Urine Neg (Negative); RBC Urine 0-4 /hpf (0-2); Urine Appearance SL Hazy (CLEAR); Urine Color Yellow (Yellow); Urobilinogen Urine Norm (Negative); WBC Urine 0-4 /hpf (0-5); pH Urine 7 (5-7)
== END 2023-03-30 09:54 | disposition home or self-care (01) ==
PROVIDERS: Emergency Provider Emergency Medicine; PCP Family Medicine
DX: R10.31 Right lower quadrant pain (principal); K40.90 Unilateral inguinal hernia, without obstruction or gangrene, not specified as recurrent
CPT/HCPCS: 74177; 80053; 81001; 83690; 85025; 86140; 96374; 96375; 99285; J2270; J2405; Q9967

== ENCOUNTER 2023-03-31 07:08 | Day surgery (SDC) | payer MEDICARE, SELFPAY ==
[2023-03-31] VITALS (11 sets, daily range): BP systolic 101–155; BP diastolic 56–91; PULSE 65–83; RESP 16–20; TEMP 36.4–36.9; O2SAT 94–99
[2023-03-31] MEDS: scopolamine 1.5 Patch 1 PATCH TRANSDERMA (07:31)
[2023-03-31] MEDS: sodium chloride 0.9% 1,000 ML 30 ML IV (07:31)
--- NOTE | 2023-03-31 07:50 | W.PM.OPSUD ---
Surgery/Procedure H&P Update DATE OF PROCEDURE: March 31, 2023 DATE H&P PERFORMED: 03/18/23 H&P UPDATE INFORMATION: I have reviewed H&P completed within last 30 days, I have examined patient prior to procedure and No changes to prior documentation PLANNED PROCEDURE: Operation Date: 03/31/23 09:00 Proposed Procedures p [id number] lap gonzales and right inguinal hernia repair with mesh K82.8,K40.90(Not Applicable) - DO cori Nance Laparoscopic Inguinal Hernia Repair(Right) - Donald Burt DO
--- NOTE | 2023-03-31 08:13 | ANES.PREANE2 ---
Pre-Anesthetic Assessment Height/Weight: Height 1.65 m Weight 90.718 kg Temp Pulse Resp BP Pulse Ox O2 Del Method 98.5 F 69 16 155/91 97 Room Air 03/31/23 07:14 03/31/23 07:14 03/31/23 07:14 03/31/23 07:14 03/31/23 07:14 03/31/23 07:37 Operation Date: 03/31/23 09:00 Proposed Procedures p [id number] lap gonzales and right inguinal hernia repair with mesh K82.8,K40.90(Not Applicable) - DO cori Nance Laparoscopic Inguinal Hernia Repair(Right) - Donald Burt DO Familial anesthetic complications: none Was Beta Sanaz taken within 24 hours: N/A Was Clonidine taken within 24 hours: N/A Last intake: Intake Last Liquid Date 03/30/23 Last Liquid Time 19:00 Last Solid Date 03/30/23 Last Solid Time 07:00 Social No alcohol and No tobacco Exam alert, oriented x 3, clear to auscultation bilaterally and regular rate & rhythm Airway Submandibular: within normal limits Cervical ROM: within normal limits Mallampati: Class II Dentition: chipped GI Gastroesophageal Reflux Disease Metabolic Morbid Obesity Neuropsych Anxiety and Depression Anesthetic Plan ASA status: 3 Anesthesia: General Medications/Allergies Home Medications Medication Instructions Recorded Confirmed Last Taken Type ascorbic acid (vitamin C) 500 mg 500 mg PO DAILY 03/05/23 03/30/23 03/05/23 History tablet (Vitamin C) cholecalciferol (vitamin D3) 50 50 mcg PO DAILY 03/05/23 03/30/23 03/05/23 History mcg (2,000 unit) tablet (Vitamin D3) pantoprazole 40 mg tablet,delayed 40 mg PO BID 6 weeks #84 tabs 03/07/23 03/30/23 03/30/23 Rx release (Protonix) hydrocodone 5 mg-acetaminophen 325 1 tab PO Q8H PRN pain #7 tabs 03/30/23 03/31/23 03/30/23 Rx mg tablet Allergies Allergy/AdvReac Type Severity Reaction Status Date / Time methotrexate Allergy hives Verified 03/31/23 07:21 Current Medications Generic Name Dose Route Start Last Admin Trade Name Freq PRN Reason Stop Dose Admin Sodium Chloride 1,000 mls @ 30 mls/hr 03/31/23 07:15 03/31/23 07:31 Sodium Chloride 0.9% IV 04/01/23 07:14 30 mls/hr .Q24H GLORIA Administration PFSH Anesthesia Medical History Atrophic vaginitis BPPV (benign paroxysmal positional vertigo) 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 Lichen sclerosus of vulva Osteopenia Surgical History History of bilateral tubal ligation History of cataract extraction with lens replacement History of D&C History of right knee joint replacement Family History Mother Dementia Grandfather Cancer kidney Denies family history of Colon cancer Ovarian cancer Diabetes Hypercholesteremia Breast cancer Hypertension Uterine cancer Thyroid disease Stroke Social History Smoking and tobacco/nicotine status: never used tobacco/nicotine Alcohol intake: never Substance/Drug Use: never Additional social history: - Household members: spouse Marital status: Number of children: 2 Number of grandchildren: 3 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al status: employed 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
[2023-03-31] MEDS: ceFAZolin 2,000 MG in sodium chloride 0.9% (plus) 50 ML 100 MG IV (08:39)
[2023-03-31] MEDS: lidocaine-epi 2% 20 mL INJ INJECTION (09:26)
--- NOTE | 2023-03-31 10:33 | PM.OP ---
Operative Report Date of procedure: March 31, 2023 Pre-op diagnosis: Right upper quadrant syndrome Reducible right inguinal hernia Post-op diagnosis: Right upper quadrant syndrome Reducible right femoral hernia Procedure done: Laparoscopic cholecystectomy Laparoscopic repair of right femoral hernia with mesh Implants: Large right 3D max Bard mesh Specimens removed/disposition: Gallbladder Surgeon: Donald Burt DO Anesthesia: General Estimated blood loss (mL): 5 Complications: None apparent Brief History: This very pleasant 73-year-old female who presents my office with right upper quadrant pain and a reducible right inguinal hernia. Laparoscopic cholecystectomy and laparoscopic right inguinal hernia repair with mesh was indicated. The risk and benefits were explained and documented. Procedure: Patient was wheeled into the operative room and placed on the OR table in a supine position. Abdomen was inspected prepped and draped in usual sterile fashion. Time-out was performed and all present were in agreement. A 15 blade scalpel was used to make 1.2 centimeter incision infraumbilically. Combination of sharp and blunt dissection was performed down to the anterior rectus sheath which was opened sharply. The dissecting balloon was then inserted into the space of Retzius and blown up. We put the camera into the port and identified that we were in the correct space. I then placed 2 5 millimeter trocars suprapubically in the midline. Some air was leaking into the abdomen and therefore I placed a 5 mm trocar in the left upper quadrant event. I then used endokitners to bluntly dissect in the space of Retzius out laterally. A femoral hernia was identified on the right. Blunt dissection was performed to dissect down the hernia sac until the vas deferens dove medially. A large right inguinal mesh was then placed into the space of Retzius. The mesh was unrolled and tacked once medially at the pubic bone. The mesh laid out nicely over the spermatic cord. I watched the hernia sac remain in place as insufflation was removed. After localizing the tissue incisions were made and a 12 millimeter trocar was placed into the umbilicus as well as 2 5 mm trocars in the right upper quadrant. A 12 millimeter trocar was placed in the epigastrium. Gallbladder was grasped and elevated. The triangle of Calot was carefully dissected using blunt dissection and electrocautery until the triangle of Calot clearly identified. The cystic duct was clipped proximally and double clipped distally. The duct was then ligated proximally. The cystic artery was doubly clipped and ligated. The gallbladder was then removed from the liver bed using electrocautery. The gallbladder was removed from the abdomen using an Endo-Catch bag through the epigastric incision. The liver bed was inspected and no bleeding was seen. The abdomen was irrigated and suctioned. All ports removed. Skin was washed and dried. Incisions were closed with 4-0 Monocryl in a subcuticular interrupted fashion. Skin glue was applied. Patient tolerated the procedure well.
[2023-03-31] MEDS: HYDROcodone-acetaminophen 10-325 mg Tablet 1 TAB PO (11:31)
--- NOTE | 2023-03-31 18:00 | ANE.PACU2 ---
Inpatient post-anesthesia follow up: Airway intact: Yes Vital signs: Temperature 98.2 F Pulse Rate 68 Respiratory Rate 18 Blood Pressure 141/68 Pulse Oximetry 99 Oxygen Delivery Me thod Room Air Oxygen Flow Rate 6 Fraction of Inspir ed Oxygen Hydration adequate: Yes Nausea and vomiting: No Pain level: 3 Mental status: Baseline
== END 2023-03-31 12:55 | disposition home or self-care (01) ==
PROVIDERS: PCP Family Medicine; Visit Provider Surgery
PROC: 0FT44ZZ Resection of Gallbladder, Percutaneous Endoscopic Approach (ICD-10-PCS; CPT 47562; principal; 2023-03-31 09:00)
PROC: (CPT 49650; 2023-03-31 09:00)
DX: K80.10 Calculus of gallbladder with chronic cholecystitis without obstruction (principal); K41.90 Unilateral femoral hernia, without obstruction or gangrene, not specified as recurrent; K21.9 Gastro-esophageal reflux disease without esophagitis; E66.01 Morbid (severe) obesity due to excess calories; Z68.33 Body mass index [BMI] 33.0-33.9, adult; L76.22 Postprocedural hemorrhage of skin and subcutaneous tissue following other procedure
CPT/HCPCS: 47562; 49659; 51702; 88304; 99281; C1781; J0690; J1100; J2704; J2710; J3490; J7030

== ENCOUNTER 2023-03-31 17:26 | Emergency (ER) | payer MEDICARE, MEDICAID, SELFPAY ==
[2023-03-31 17:34] VITALS: BP 142/71; PULSE 84; RESP 18; TEMP 36.6; O2SAT 94; BMI 33.3
--- NOTE | 2023-03-31 17:44 | ED_ITS ---
HPI - General Adult General: Chief complaint: General Medical Stated complaint: bleeding out of incision Time Seen by Provider: 03/31/23 17:41 Source: patient Mode of arrival: ambulatory Limitations: no limitations History of Present Illness: 73-year-old female who had a hernia repa ir, cholecystectomy done today she is just discharged from the hospital she is concerned she had some slight bleeding from one of her lower incisions had since stopped she denies any pain denies any fevers. Associated symptoms: Deny chest pain, dyspnea, nausea, rash or vomiting Review of Systems Const: Denies: fever(s), chills, body aches or change in appetite Eyes: Denies: blurry vision or eye discomfort ENMT: Denies: throat pain or dental pain Card: Denies: chest pain Resp: Denies: dyspnea GI: Denies: abdominal pain, nausea, vomiting or diarrhea Musc: Denies: neck pain or back pain Skin/Breast: Denies: rash PFSH ED PFSH: Medical History Osteopenia BPPV (benign paroxysmal positional vertigo) Lichen sclerosus of vulva Atrophic vaginitis 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 Surgical History History of right knee joint replacement History of D&C History of bilateral tubal ligation History of cataract extraction with lens replacement Family History Mother Dementia Grandfather Cancer kidney Denies family history of Colon cancer Ovarian cancer Diabetes Hypercholesteremia Breast cancer Hypertension Uterine cancer Thyroid disease Stroke Social History Smoking and tobacco/nicotine status: never used tobacco/nicotine Alcohol intake: never Substance/Drug Use: never Additional social history: - Household members: spouse Marital status: Number of children: 2 Number of grandchildren: 3 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al status: employed 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: [employer] Lorna/Taoism: Caodaism Agree to transfusion: Yes Physical Exam Const: COMMON NORMALS: no acute distress HENMT: COMMON NORMALS: normocephalic HEAD & SCALP: normocephalic Eye: COMMON NORMALS: conjunctivae normal CONJUNCTIVA: Yes conjunctivae normal Neck/C-Spine: COMMON NORMALS: supple Chest: COMMONS NORMALS: normal inspection of the chest Resp: COMMON NORMALS: normal respiratory effort GI: OTHER: Patient's incisions are all clean dry and intact she has no active bleeding at any of the incisions at this time Extremity: COMMON NORMALS: normal to inspection Course Vital Signs: Vital signs: Vital Signs Temperature 98 F 03/31/23 17:34 Pulse Rate 84 03/31/23 17:34 Respiratory Rate 18 03/31/23 17:34 Blood Pressure 142/71 03/31/23 17:34 Pulse Oximetry 94 03/31/23 17:34 Oxygen Delivery Me thod Room Air 03/31/23 17:34 MDM - General Adult Medical Decision Making Patient presents here with bleeding from one of her incisions from her surgery bleeding is since stopped all her incisions are well-appearing here they are clean dry and intact she stable for discharge follow-up with her surgeon return if worsening Medical Records I reviewed the patient's medical records. No radiology studies performed this visit Discharge Plan Discharge Patient Disposition: Home Clinical Impression: Post-op bleeding Condition: Stable Prescriptions: No Action ascorbic acid (vitamin C) [Vitamin C] 500 mg Tablet 500 mg PO DAILY cholecalciferol (vitamin D3) [Vitamin D3] 50 mcg (2,000 unit) Tablet 50 mcg PO DAILY pantoprazole [Protonix] 40 mg tablet,delayed release (DR/EC) 40 mg PO BID 42 Days Qty: 84 1RF hydrocodone-acetaminophen 10-325 mg tablet 1 tab PO Q6H PRN (Reason: pain) Qty: 20 0RF Rx Instructions: May take half of a tab at a time Colace 100 mg capsule 100 mg PO BID Qty: 14 0RF hydrocodone-acetaminophen 5-325 mg tablet 1 tab PO Q8H PRN (Reason: pain) Qty: 7 0RF Hold Instructions: Resume on 04/05/23. Discharge Orders: Discharge ED (Routine); Ordered 03/31/23 Ordered By: Sunday George Referrals: Donlad Burt DO [Physician] - 7-10 days Kaley Gonzalez MD [Primary Care Provider] - Discharge Diet: Advance as tolerated Discharge Activity: Resume usual activity Patient Instructions: Wound Care (General) Coding Level of Care Code ED Director Of Culture for Chg Yoselin
[2023-03-31 17:53] VITALS: PULSE 79; O2SAT 98
== END 2023-03-31 17:54 | disposition home or self-care (01) ==
PROVIDERS: Emergency Provider Emergency Medicine; PCP Family Medicine
DX: L76.22 Postprocedural hemorrhage of skin and subcutaneous tissue following other procedure (principal)
CPT/HCPCS: 99281

== ENCOUNTER → 2023-04-03 14:04 | Outpatient (BNVA) | payer MEDICARE, MEDICAID, SELFPAY | PROVIDERS: PCP Family Medicine; Visit Provider Dermatology | DX: L57.0 Actinic keratosis (principal); Z85.828 Personal history of other malignant neoplasm of skin; D22.39 Melanocytic nevi of other parts of face; L82.0 Inflamed seborrheic keratosis; L81.4 Other melanin hyperpigmentation; L82.1 Other seborrheic keratosis | CPT/HCPCS: 17000; 17110; 99213 ==

== ENCOUNTER → 2023-04-09 14:21 | Outpatient (BNVA) | payer MEDICARE, MEDICAID, SELFPAY | PROVIDERS: PCP Family Medicine; Visit Provider Surgery | DX: Z90.49 Acquired absence of other specified parts of digestive tract (principal); Z98.890 Other specified postprocedural states; Z87.19 Personal history of other diseases of the digestive system | CPT/HCPCS: 99024 ==

== ENCOUNTER 2023-05-05 06:00 | Outpatient (RCR) | payer MEDICARE, SELFPAY | END 2023-05-28 23:59 | disposition home or self-care (01) | LOC: SPT 06:00 | PROVIDERS: Visit Provider Optometrist | DX: R42 Dizziness and giddiness (principal) | CPT/HCPCS: 95992; 97161 ==

== ENCOUNTER 2023-05-27 10:38 | Observation (INO) | payer MEDICARE, SELFPAY ==
[2023-05-23 11:17] LABS: Basophils # 0.1 10^3/uL (0.0-0.1); Basophils % 1.1 %; Eosinophils # 0.2 10^3/uL (0.0-0.8); Eosinophils % 3.5 %; Hematocrit 40.4 % (36-47); Lymphocytes # 1.6 10^3/uL (0.8-4.8); Lymphocytes % 34.8 %; Mean Corpuscular HGB Conc 32.7 g/dL (30-55); Mean Corpuscular Hemoglobin 28.8 pg (27-33); Mean Corpuscular Volume 88.2 fl (85-98); Mean Platelet Volume 11.6 fL (7.4-10.4); Monocytes # 0.4 10^3/uL (0.2-0.9); Monocytes % 8.1 %; Neutrophils # 2.39 10^3/uL (1.8-7.7); Neutrophils % 52.3 %; Nucleated Red Blood Cells % 0 %; Platelet Count 188 10^3/cmm (157-399); Red Blood Count 4.58 10^6/uL (3.85-5.65); White Blood Count 4.57 10^3/uL (3.29-11.43)
[2023-05-23 11:18] LABS: Bilirubin Urine Neg (Negative); Blood Urine 2+ (Negative); Glucose Urine UA Norm (Normal); Ketones Urine Negative (Negative); Leukocyte Esterase Urine 2+ (Negative); Nitrate Urine Negative (Negative); Protein Urine Neg (Negative); Urine Appearance Clear (CLEAR); Urine Color Yellow (Yellow); Urobilinogen Urine Norm (Negative); pH Urine 5 (5-7)
[2023-05-23 11:19] LABS: Add Urine Culture? No; Add Urine Microscopic? YES; Bacteria Urine TRACE /hpf; RBC Urine 0-4 /hpf (0-2); WBC Urine 0-4 /hpf (0-5)
[2023-05-23 12:33] LABS: Alanine Aminotransferase 27 U/L (0-33); Albumin Level 4.5 g/dL (3.5-5.2); Alkaline Phosphatase 101 U/L (35-105); Anion Gap 19.2 (5-19); Aspartate Amino Transferase 27 U/L (0-32); Blood Urea Nitrogen 12 mg/dL (8-23); Calcium 9.6 mg/dL (8.5-10.5); Carbon Dioxide 22 mmol/L (22-29); Chloride 105 mmol/L (98-107); Globulin 2.4 g/dL (1.3-4.6); Glucose 93 mg/dL (65-115); Osmolality Calculated 293 mOsm/kg (285-295); Potassium 4.2 mmol/L (3.5-5.1); Sodium 142 mmol/L (136-145); Total Bilirubin 1.5 mg/dL (0.15-1.2); Total Protein 6.9 g/dL (6.6-8.7)
--- NOTE | 2023-05-23 14:03 | ANES.PREANE2 ---
Pre-Anesthetic Assessment Height/Weight: Height 1.65 m Preop Diagnosis: cystocele, urinary incontinence mixed Operation Date: 05/27/23 11:30 Proposed Procedures p Anterior colporrhaphy 90337, single incision sling 32770,N81.2(Not Applicable) - Tremaine Sharpe MD s Sling(Not Applicable) - Tremaine Sharpe MD Familial anesthetic complications: none Was Beta Sanaz taken within 24 hours: N/A Was Clonidine taken within 24 hours: N/A Social No alcohol and No tobacco Exam alert, oriented x 3, clear to auscultation bilaterally and regular rate & rhythm Airway Submandibular: within normal limits Cervical ROM: within normal limits Mallampati: Class II Dentition: chipped GI Gastroesophageal Reflux Disease Neuropsych Anxiety and Depression Anesthetic Plan ASA status: 2 Anesthesia: General Medications/Allergies Home Medications Medication Instructions Recorded Confirmed Last Taken Type docusate sodium 100 mg capsule 100 mg PO BID #14 caps 03/31/23 05/23/23 05/23/23 Rx (Colace) pantoprazole 40 mg tablet,delayed 40 mg PO DAILY #90 tabs 05/21/23 05/23/23 05/23/23 Rx release (Protonix) Allergies Allergy/AdvReac Type Severity Reaction Status Date / Time methotrexate Allergy hives Verified 05/23/23 08:01 [facility] Anesthesia Medical History Osteopenia BPPV (benign paroxysmal positional vertigo) Lichen sclerosus of vulva Atrophic vaginitis 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 Surgical History Hx laparoscopic cholecystectomy 03/31/23 Dr Burt Hx of inguinal hernia surgery 03/31/23 Laparoscopic repair of right femoral hernia with mesh- Dr Burt History of right knee joint replacement History of D&C History of bilateral tubal ligation History of cataract extraction with lens replacement Family History Mother Dementia Grandfather Cancer kidney Denies family history of Colon cancer Ovarian cancer Diabetes Hypercholesteremia Breast cancer Hypertension Uterine cancer Thyroid disease Stroke Social History Smoking and tobacco/nicotine status: never used tobacco/nicotine Alcohol intake: never Substance/Drug Use: never Additional social history: - Household members: spouse Marital status: Number of children: 2 Number of grandchildren: 3 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al status: employed 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 Lorna/Yazdanism: Jain Agree to transfusion: Yes Data Anesthesia 05/23/23 10:45 05/23/23 10:54 Short CBC 05/23/23 Range/Units 10:45 WBC 4.57 (3.29-11.43) 10^3/uL Hgb 13.20 (11.27-16.99) g/dL Hct 40.4 (36-47) % MCV 88.2 (85-98) fl Plt Count 188 (157-399) 10^3/cmm Neut % (Auto) 52.3 % Neut # (Auto) 2.39 (1.8-7.7) 10^3/uL BMP 05/23/23 10:54 Sodium 142 Potassium 4.2 Chloride 105 Carbon Dioxide 22 BUN 12 Creatinine 1.0 H Glucose 93 Calcium 9.6 Liver Function 05/23/23 Range/Units 10:54 Total Bilirubin 1.5 H (0.15-1.2) mg/dL AST 27 (0-32) U/L ALT 27 (0-33) U/L Alkaline Phosphatase 101 (35-105) U/L Albumin 4.5 (3.5-5.2) g/dL Urine 05/23/23 Range/Units 10:50 Urine Color Yellow (Yellow) Urine Appearance Clear (CLEAR) Urine pH 5 (5-7) Ur Specific [place] 1.020 (1.005-1.030) Urine Protein Neg (Negative) Urine Glucose (UA) Norm (Normal) Urine Ketones Negative (Negative) Urine Nitrate Negative (Negative) Urine Bilirubin Neg (Negative) Ur Leukocyte Esterase 2+ H (Negative) Urine RBC 0-4 H (0-2) /hpf Urine WBC 0-4 H (0-5) /hpf Cardiac Studies: No Data to Display
[2023-05-27] VITALS (16 sets, daily range): BP systolic 133–163; BP diastolic 59–94; PULSE 66–80; RESP 15–18; TEMP 36.1–36.7; O2SAT 91–100; BMI 33.4
--- NOTE | 2023-05-27 07:02 | W.PM.OPSUD ---
Surgery/Procedure H&P Update DATE OF PROCEDURE: May 27, 2023 DATE H&P PERFORMED: 05/23/23 H&P UPDATE INFORMATION: I have reviewed H&P completed within last 30 days, I have examined patient prior to procedure and No changes to prior documentation PREOP DIAGNOSIS: cystocele, urinary incontinence mixed PLANNED PROCEDURE: Operation Date: 05/27/23 08:25 Proposed Procedures p Anterior colporrhaphy 07887, single incision sling 85476,N81.2(Not Applicable) - Tremaine Sharpe MD s Sling(Not Applicable) - Tremaine Sharpe MD
[2023-05-27] MEDS: sodium chloride 0.9% 1,000 ML 30 ML IV (07:06)
[2023-05-27] MEDS: enoxaparin 30 mg/0.3 mL Syringe SUBCUT (07:06)
--- NOTE | 2023-05-27 08:22 | P.ANESUD_ITS ---
Pre-Anesthetic Update Pre-Anesthetic Assessment: Date of Surgery/Procedure: 05/27/23 Preop Evelyn gnosis: cystocele, urinary incontinence mixed Proposed Procedure: Operation Date: 05/27/23 08:25 Proposed Procedures p Anterior colporrhaphy 08822, single incision sling 76166,N81.2(Not Applicable) - Tremaine Sharpe MD s Sling(Not Applicable) - Tremaine Sharpe MD Any changes to Pre-Anesthetic Assessment?: No Last Intake: Intake Last Liquid Date 05/26/23 Last Liquid Time 19:00 Last Solid Date 05/26/23 Last Solid Time 19:00 Vitals: Temperature 98 F 05/27/23 06:52 Temperature Source Temporal Artery S can 05/27/23 06:52 Pulse Rate 74 05/27/23 06:52 Pulse Rhythm Regular 05/27/23 07:00 Pulse Strength 3+ Normal 05/27/23 07:00 Respiratory Rate 18 05/27/23 06:52 Blood Pressure 152/94 05/27/23 06:52 Blood Pressure Cayla n 113 05/27/23 06:52 Pulse Oximetry 97 05/27/23 06:52 Oxygen Delivery Me thod Room Air 05/27/23 07:00 Exam: Pre-Anes Outpt Exam: alert, oriented x 3, clear to auscultation bilaterally and regular rate & rhythm Cardiac Studies: No Data to Display
[2023-05-27] MEDS: ceFAZolin 2,000 MG in sodium chloride 0.9% (plus) 50 ML 100 MG IV (08:57)
[2023-05-27] MEDS: lidocaine-epi 1% 20 mL INJ INJECTION (09:51)
--- NOTE | 2023-05-27 11:00 | P.OP_ITS ---
Operative Report Date of procedure: May 27, 2023 Pre-op diagnosis: Cystocele stage III Post-op diagnosis: Same as above Post-op findings: Cystocele stage III Rectocele stage I Procedure done: Anterior colporrhaphy augmented with allograft and single incision mid urethral sling Implants: Coloplast Altis sling Surgeon: Tremaine Sharpe MD Estimated blood loss (mL): 100 IV fluids (mL): 1,300 Urine output (mL): 100 Complications: None Procedure: After obtaining informed consent, the patient was taken to the operating room and placed in the supine position, given general anesthesia, and prepped and draped in sterile fashion. The abdomen, vulva and vagina were prepped and draped in a sterile manner. A time out procedure was performed. The anterior vaginal mucosa beneath the midurethra was infiltrated with 0.5% Marcaine with epinephrine. A vertical midline incision was made beneath the midurethra, nearly 1.5 cm length. Careful submucosal dissection was performed bilaterally up to the interior portion of the inferior pubic ramus. The insertion of adducto r longus tendon on the patient?s pubic ramus was identified as reference land nora. Palpated the notch along the internal edge of ischiopubic ramus where the adductor longus tendon and the inferior pubic ramus meet. The Altis single incision sling (SIS) was selected. Then the needle of the SIS inserted aiming at the location of this notch. One of the integrated self-fixating tips place onto the needle by sliding it over the end of the needle. The needle/sling assembly was inserted toward the location of identified reference notch making sure that the flat of the handle is perpendicular to the desired path. The needle was tracked along the posterior surface of the ischiopubic ramus until the midline nora on the mesh is approximately at the midline position under the urethra. The needle was removed and the same was repeated on the contralateral side until the appropriate sling tension under the urethra was achieved ensuring that the mesh lays flat. The needle was removed and vaginal incision was closed in a running interlocking fashion with 2-0 Vicryl. The vaginal mucosa was then injected in the midline with normal saline. The vaginal mucosa was scored in the midline with the Bovie approximately 1 cm medial to the urethral meatus to 1 cm distal to the cervix. This vaginal mucosa was then undermined and then incised in the midline with the Metzenbaum scissors. The lateral aspects of the vaginal mucosa were then grasped with the Allis clamps and the vaginal mucosa was then dissected off the underlying fascia with the Metzenbaum scissors. Again, there was noted to be quite a bit of oozing at the incision, which was controlled with cautery. After adequate dissection was performed, bilaterally. An Coloplast dermis allograft modified at time of application to fit spacea, 3 x 3 cm piece . The allograft was placed in front of cystocele ready to be implanted facing the vagina mucosa. Suture is placed at distal end of graft and placed towards vaginal cuff. Final suture is placed on proximal portion of the graft to complete the placement overlying the bladder. Then Interrupted vertical mattress sutures of 0 Vicryl were used to elevate the cystocele superiorly. The excessive vaginal mucosa was then trimmed with the Metzenbaum scissors and the vaginal mucosa was then reapproximated in the running interlocking fashion with 2-0 Vicryl. Patient was given indigocarmine IV. Then the Cary catheter was removed and cystoscope was inserted. The bladder was filled with sterile water. Complete evaluation of the bladder mucosa was performed noting no lacerations, dimpling, tears, bleeding of the mucosa or muscular layers. Both ureteral orifices were identified. Prompt excretion of urine britton/green from both ureteral orifices was noted. Cystoscope was withdrawn. The Cary catheter was replaced. Excellent hemostasis was obtained. A vaginal pack is placed overnight as postoperative support for the vaginal tissues after graft placement and closure of vaginal incisions. Sponge, lap, needle, and instrument counts were correct times three. The patient was taken to the recovery room, awake and in stable condition.
--- NOTE | 2023-05-27 11:35 | ANE.PACU2 ---
Inpatient post-anesthesia follow up: Airway intact: Yes Vital signs: Temperature 97.4 F Pulse Rate 61 Respiratory Rate 15 Blood Pressure 141/64 Pulse Oximetry 95 Oxygen Delivery Me thod Room Air Oxygen Flow Rate 8 Fraction of Inspir ed Oxygen Hydration adequate: Yes Nausea and vomiting: No Pain level: 1 Mental status: Baseline
[2023-05-27] MEDS: ketorolac 30 mg/mL INJ IVP ×3 (13:17→23:47)
[2023-05-27] MEDS: docusate sodium 100 mg Capsule PO (17:46)
[2023-05-27] MEDS: dextrose 5%-lactated ringers 1,000 ML 125 ML IV (20:27)
[2023-05-28 02:00] VITALS: BP 144/70; PULSE 61; RESP 16; TEMP 36.3; O2SAT 95
[2023-05-28 04:00] VITALS: BP 141/64; PULSE 61; RESP 15; TEMP 36.3; O2SAT 95
--- NOTE | 2023-05-28 06:00 | PC.NURSE ---
Vaginal packing removed by this nurse without difficulties, pt tolerated removal well.
[2023-05-28 06:19] LABS: Hematocrit 34.8 % (36-47); Mean Corpuscular HGB Conc 32.5 g/dL (30-55); Mean Corpuscular Hemoglobin 28.8 pg (27-33); Mean Corpuscular Volume 88.8 fl (85-98); Platelet Count 171 10^3/cmm (157-399); Red Blood Count 3.92 10^6/uL (3.85-5.65); Red Cell Distribution Width 13.2 % (12.1-15.1); White Blood Count 6.54 10^3/uL (3.29-11.43)
--- NOTE | 2023-05-28 08:42 | P.DS_ITS ---
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 Gonzales 73-year-old female with a history of a cystocele stage III admitted for planned anterior colporrhaphy and single incision mid urethral sling. The procedures were performed without complication. Ambulating without difficulty. Denies pain. PVR within normal limits. Tolerating diet well. She is afebrile and hemodynamically stable postoperative day 1. She was counseled regarding pelvic rest for 6 weeks (no sex, no tampons, no vaginal douches). Return to the emergency room if any fever, increased bleeding or pain. Physical Exam Narrative: GA: Alert and oriented ?3. HEENT: WNL. Heart: Regular rate and rhythm. Lungs: Clear to auscultation bilaterally. Abdomen: Bowel sounds present, nontender. 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 Extremities: No edema, no cyanosis, no calves pain. Urinary Catheter Management: Cary: Cath Placed During This Visit: yes, but has since been removed by the nurse Reason for Continuing Indwelling Catheter: Decision to DC Catheter Urinary Catheter Date of Insertion: 05/27/23 Urinary Catheter Time of Insertion: 09:32 Date Urinary Catheter Removed: 05/28/23 Time Urinary Catheter Discontinued: 06:00 History History History 2 Term 2 0 Miscarriages/Ectopic 0 Living Children 2 Discharge Data Studies Completed and Pending Laboratory Results WBC 6.54 10^3/uL (3.29-11.43) 05/28/23 06:05 RBC 3.92 10^6/uL (3.85-5.65) 05/28/23 06:05 Hgb 11.30 g/dL (11.27-16.99) 05/28/23 06:05 Hct 34.8 % (36-47) L 05/28/23 06:05 MCV 88.8 fl (85-98) 05/28/23 06:05 MCH 28.8 pg (27-33) 05/28/23 06:05 MCHC 32.5 g/dL (30-55) 05/28/23 06:05 RDW 13.2 % (12.1-15.1) 05/28/23 06:05 Plt Count 171 10^3/cmm (157-399) 05/28/23 06:05 MPV 11.0 fL (7.4-10.4) H 05/28/23 06:05 Neut % (Auto) 52.3 % 05/23/23 10:45 Lymph % (Auto) 34.8 % 05/23/23 10:45 [place]leigh % (Auto) 8.1 % 05/23/23 10:45 Eos % (Auto) 3.5 % 05/23/23 10:45 Baso % (Auto) 1.1 % 05/23/23 10:45 Neut # (Auto) 2.39 10^3/uL (1.8-7.7) 05/23/23 10:45 Lymph # (Auto) 1.6 10^3/uL (0.8-4.8) 05/23/23 10:45 [place] # (Auto) 0.4 10^3/uL (0.2-0.9) 05/23/23 10:45 Eos # (Auto) 0.2 10^3/uL (0.0-0.8) 05/23/23 10:45 Baso # (Auto) 0.1 10^3/uL (0.0-0.1) 05/23/23 10:45 Nucleated RBC % (auto) 0 % 05/23/23 10:45 Nucleated RBCs # 0.0 /100WBC 05/23/23 10:45 Sodium 142 mmol/L (136-145) 05/23/23 10:54 Potassium 4.2 mmol/L (3.5-5.1) 05/23/23 10:54 Chloride 105 mmol/L (98-107) 05/23/23 10:54 Carbon Dioxide 22 mmol/L (22-29) 05/23/23 10:54 Anion Gap 19.2 (5-19) H 05/23/23 10:54 BUN 12 mg/dL (8-23) 05/23/23 10:54 Creatinine 1.0 mg/dL (0.5-0.9) H 05/23/23 10:54 GFR Calculation Not Reportable 05/23/23 10:54 Glucose 93 mg/dL (65-115) 05/23/23 10:54 Calculated Osmolality 293 mOsm/kg (285-295) 05/23/23 10:54 Calcium 9.6 mg/dL (8.5-10.5) 05/23/23 10:54 Total Bilirubin 1.5 mg/dL (0.15-1.2) H 05/23/23 10:54 AST 27 U/L (0-32) 05/23/23 10:54 ALT 27 U/L (0-33) 05/23/23 10:54 Alkaline Phosphatase 101 U/L (35-105) 05/23/23 10:54 Total Protein 6.9 g/dL (6.6-8.7) 05/23/23 10:54 Albumin 4.5 g/dL (3.5-5.2) 05/23/23 10:54 Globulin 2.4 g/dL (1.3-4.6) 05/23/23 10:54 Urine Color Yellow (Yellow) 05/23/23 10:50 Urine Appearance Clear (CLEAR) 05/23/23 10:50 Urine pH 5 (5-7) 05/23/23 10:50 Ur Specific [place] 1.020 (1.005-1.030) 05/23/23 10:50 Urine Protein Neg (Negative) 05/23/23 10:50 Urine Glucose (UA) Norm (Normal) 05/23/23 10:50 Urine Ketones Negative (Negative) 05/23/23 10:50 Urine Blood 2+ (Negative) H 05/23/23 10:50 Urine Nitrate Negative (Negative) 05/23/23 10:50 Urine Bilirubin Neg (Negative) 05/23/23 10:50 Urine Urobilinogen Norm mg/dL (Negative) 05/23/23 10:50 Ur Leukocyte Esterase 2+ (Negative) H 05/23/23 10:50 Urine RBC 0-4 /hpf (0-2) H 05/23/23 10:50 Urine WBC 0-4 /hpf (0-5) H 05/23/23 10:50 Ur Squamous Epith Cells 5-10 /hpf (0-5) H 05/23/23 10:50 Amorphous Sediment Not Reportable 05/23/23 10:50 Urine Bacteria Trace /hpf (NONE) 05/23/23 10:50 Blood Type AB Positive 05/27/23 07:00 Rho(D) Type Rh positive 05/27/23 07:00 Antibody Screen Negative 05/27/23 07:00 Vitals Last Vital Signs Temp 97.4 F L 05/28/23 04:00 Pulse 61 05/28/23 04:00 Resp 15 05/28/23 04:00 BP 141/64 05/28/23 04:00 Pulse Ox 95 05/28/23 04:00 O2 Del Method Room Air 05/28/23 04:00 O2 Flow Rate 8 05/27/23 11:10 Results Labs OB ([facility]): Blood Type AB Positive 05/27/23 Antibody Screen Negative 05/27/23 Hct 34.8 % (36-47) L 05/28/23 Hgb 11.30 g/dL (11.27-16.99) 05/28/23 Rho(D) Type Rh positive 05/27/23 Plt Count 171 10^3/cmm (157-399) 05/28/23 TSH 4.06 uIU/mL (0.27-4.20) 10/18/22 Micro Urine Specimen 02/10/23 Discharge Plan Discharge Condition: Stable Prescriptions: New hydrocodone-acetaminophen 5-325 mg tablet 1 tab PO Q4H PRN (Reason: pain) Qty: 10 0RF ibuprofen 800 mg tablet 800 mg PO TID PRN (Reason: pain) Qty: 60 0RF acetaminophen 325 mg capsule 325 mg PO Q4H PRN (Reason: fever or postoperative pain) Qty: 60 0RF Continued pantoprazole [Protonix] 40 mg tablet,delayed release (DR/EC) 40 mg PO DAILY Qty: 90 0RF docusate sodium [Colace] 100 mg capsule 100 mg PO BID Qty: 14 0RF Discharge Orders: Discharge Order (Routine); Ordered 05/28/23 Ordered By: Tremaine Sharpe Discharge Diet: Usual diet Discharge Activity: Limit activity as instructed Patient Instructions: Opioid Safety, Bladder Sling for Women (GEN), Anterior Vaginal Repair (GEN), Pelvic Rest (ED), Complications of Infection (GEN) Activity Restrictions/Additional Instructions: 1. Please call [facility] on next working day to make your post-operative appointment in 2 weeks. 2. Please stay home until you come back to the clinic on first post-hospatiliz ation check up. 3. Please follow instructions on your medications CAREFULLY. 4. If you have abdominal incision, do not cover it unless dressing is necessary because of drainage. OK to shower, but avoid bath. Leave steri-strips until they fall off. If they are still on one week after surgery, you may remove them. 5. If you had vaginal surgery or vaginal repair, Dr. Sharpe may instruct you to take SITZ bath. 6. Yellow, blood tinged odorous vaginal discharge is usually normal after hysterectomy or vaginal surgeries. 7. No SEXUAL INTERCOURSE, tampons, or douches until you are completely released from the post-operative care. 8. Avoid constipation by eating right and maybe using some Metamucil or Milk of Magnesia. 9. All prescription refills are given during the working hours. Please do no wait till it runs out. Call the clinic at [phone] before your medication runs out. The clinic will get in touch with your doctor to prescribe medications if necessary. 10. Please remain within 40 mile radius from our hospital because emergencies do happen now and then during the post-operative period. 11. If you have stairs at home, take one step at a time slowly and minimize the number of trips. It helps to stay in one floor for the next few days. No lifting except what you can lift by one hand until you are released from the post-operative care. 12. Driving is discouraged until you are well healed. It may be 3-4 weeks before you feel strong enough to drive. You should be able to turn and look through the rear window without pain and you should be able to push the brake pedal very hard without pain before you drive. No fast rules, but SAFETY should be your primary concern. DO NOT drive if you are on sedating medications such as narcotics. 13. Call the clinic (during working hours) to make urgent appointment or go to the Emergency room, if any of the following occurs: i. Vaginal bleeding becomes heavy, more than a period. ii. Incision becomes red and sore, or drains pus. iii. Your TEMPERATURE is over 100.4F or you have chill. iv. IV site becomes red and swollen (a little ``knot?? is usually OK) v. Persistent nausea and vomiting vi. Persistent constipation or diarrhea vii. Rash or allergic reaction to medications. 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
[2023-05-28 09:18] VITALS: BP 157/73; PULSE 66; RESP 17; TEMP 36.9; O2SAT 96
[2023-05-28 09:55] VITALS: BP 157/73; PULSE 66; RESP 17; TEMP 36.9; O2SAT 96
== END 2023-05-28 09:55 | disposition home or self-care (01) ==
LOC: OBGYN 10:42
PROVIDERS: Admitting Provider Obstetrics & Gynecology; PCP Family Medicine; Visit Provider Obstetrics & Gynecology
PROC: 0JQC0ZZ Repair Pelvic Region Subcutaneous Tissue and Fascia, Open Approach (ICD-10-PCS; CPT 57240; principal; 2023-05-27 08:15)
PROC: (CPT 57288; 2023-05-27 08:15)
DX: N81.10 Cystocele, unspecified (principal); N81.6 Rectocele
CPT/HCPCS: 57240; 57288; 36415; 51798; 80053; 81001; 85025; 85027; 86850; 86900; 96374; C1713; C1762; G0378; J0690; J1100; J1650; J1885; J2405; J2704; J3010; J3490; J7030; J7121

== ENCOUNTER → 2023-06-11 10:00 | Outpatient (BNVA) | payer MEDICARE, SELFPAY | PROVIDERS: PCP Family Medicine; Visit Provider Nurse Practitioner Women's Health | DX: R35.0 Frequency of micturition (principal); Z48.816 Encounter for surgical aftercare following surgery on the genitourinary system | CPT/HCPCS: 81000; 87086 ==

== ENCOUNTER 2023-07-12 08:21 | Emergency (ER) | payer MEDICARE, MEDICAID, SELFPAY ==
[2023-07-12 08:28] VITALS: BP 194/83; PULSE 64; RESP 18; TEMP 36.3; O2SAT 95; BMI 32.3
--- NOTE | 2023-07-12 08:50 | ED_ITS ---
HPI - Skin/Abscess/Foreign Bdy General: Chief complaint: Skin/Abscess/Foreign Body Stated complaint: rash Time Seen by Provider: 07/12/23 08:23 Source: patient Mode of arrival: ambulatory History of Present Illness: Patient complaining of itching for the last 3 weeks she seen her doctor was started on cetirizine and prednisone she is just about completed the prednisone she has no visible rash but still complains of itching on the skin. Location: generalized Severity: mild Relieving factors: none Exacerbating factors: none Associated symptoms: Deny arthralgias, chills, cough, fever(s), itching, myalgias, nausea, rigidity, short of breath or vomiting Treatments prior to arrival: none Review of Systems Const: Denies: fever(s) or chills Card: Denies: chest pain Resp: Denies: dyspnea GI: Denies: nausea or vomiting : Denies: dysuria, urinary frequency or urinary urgency Musc: Denies: neck pain or back pain Skin/Breast: Reports: pruritus; Denies: rash or erythema PFSH ED PFSH: Medical History Osteopenia BPPV (benign paroxysmal positional vertigo) Lichen sclerosus of vulva Atrophic vaginitis Differentiated vulvar intraepithelial neoplasia (dVIN) this was treated by [employer] Teacher/Onc- Davis at [facility] in 2022. Awaiting reports. History of nonmelanoma skin cancer Surgical History History of anterior colporrhaphy (~05/27/23) augmented with allograft and single incision mid urethral sling performed by Dell Wu laparoscopic cholecystectomy 03/31/23 Dr Burt Hx of inguinal hernia surgery 03/31/23 Laparoscopic repair of right femoral hernia with mesh- Dr Burt History of right knee joint replacement History of D&C History of bilateral tubal ligation History of cataract extraction with lens replacement Family History Mother Dementia Grandfather Cancer kidney Denies family history of Colon cancer Ovarian cancer Diabetes Hypercholesteremia Breast cancer Hypertension Uterine cancer Thyroid disease Stroke Social History Smoking and tobacco/nicotine status: never used tobacco/nicotine Alcohol intake: never Substance/Drug Use: never Adopted: No service: No 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al exposures/hazards: Yes 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 Current gender identity: Female Physical Exam Const: COMMON NORMALS: no acute distress GENERAL APPEARANCE: cooperative and comfortable ORIENTATION/CONSCIOUSNESS: Yes awake, Yes oriented to person, Yes oriented to place and Yes oriented to time HENMT: COMMON NORMALS: normocephalic, atraumatic and hearing grossly normal bilaterally HEAD & SCALP: normocephalic and atraumatic Resp: COMMON NORMALS: normal respiratory effort, No retractions, No use of accessory muscles and clear to auscultation bilaterally AUSCULTATION: clear to auscultation bilaterally Cardio: COMMON NORMALS: regular rate, regular rhythm and No murmurs present (Cardio) RATE: regular rate RHYTHM: regular rhythm GI: COMMON NORMALS: Soft to palpation and No hepatosplenomegaly present AUSCULTATION: Yes normoactive bowel sounds PALPATION: Yes Soft to palpation, No Tenderness to palpation present (GI), No Guarding due to palpation present (GI) and Yes No hepatosplenomegaly present Extremity: COMMON NORMALS: normal to inspection, capillary refill normal, no clubbing, cyanosis or edema, no calf tenderness and no pedal edema Neuro: SENSORIUM/ORIENTATION: Yes oriented to person, Yes oriented to place and Yes oriented to time Skin: COMMON NORMALS: no rashes or lesions noted GENERAL SKIN EXAM: no rashes or lesions noted Course Vital Signs: Vital signs: Vital Signs Temperature 97.4 F L 07/12/23 08:28 Pulse Rate 64 07/12/23 08:28 Respiratory Rate 18 07/12/23 08:28 Blood Pressure 194/83 07/12/23 08:28 Pulse Oximetry 95 07/12/23 08:28 Oxygen Delivery Me thod Room Air 07/12/23 08:28 MDM - Skin/Abscess/Foreign Bdy Medicial Decision Making Pruritis described as systemic with no visible external rash. No other exam findings. Complete steriod taper and continue the cetirizine 10mg BID. Recheck with PCP - referal to dermatology if felt appropriate. Medical Records I reviewed the patient's medical records. No radiology studies performed this visit Discharge Plan Discharge Patient Disposition: Home Clinical Impression: Unspecified pruritic disorder Condition: Stable Prescriptions: New cetirizine 10 mg tablet 10 mg PO BID Qty: 60 0RF No Action buspirone 5 mg tablet 5 mg PO BID Qty: 60 0RF miconazole nitrate 2 % ointment 1 applic topical BID Qty: 56.7 0RF prednisone 20 mg tablet 20 mg PO DAILY 5 Days Qty: 5 0RF pantoprazole [Protonix] 40 mg tablet,delayed release (DR/EC) 40 mg PO DAILY Qty: 90 0RF Discharge Orders: Discharge ED (Routine); Ordered 07/12/23 Ordered By: Farooq Keys Referrals: Kaley Gonzalez MD [Primary Care Provider] - Discharge Diet: Usual diet Discharge Activity: Resume usual activity Patient Instructions: Opioid Safety, Pain Management Activity Restrictions/Additional Instructions: Thank you for choosing [facility] for your healthcare needs today. Please realize this is an emergency room and that we are providing you with a medical screening exam and this may not be complete and all inclusive of all the testing and or work up that you may need to determine your ailment or severity of your illness. It is very important that you follow up as instructed or that you return to the Emergency Department should you have concerns or if your condition changes or worsens in any way. You were seen today with complaint of itching of skin there is no evidence of any rash at this time. Complete steroid taper given by your doctor. You can use cetirizine 10 mg twice a day and follow-up with your primary care doctor for referral to dermatology if felt appropriate Coding Level of Care Code ED Clinical Appeals Auditor for Cris Wyatt
[2023-07-12 08:58] VITALS: BP 194/83; PULSE 64; RESP 18; TEMP 36.3; O2SAT 95
== END 2023-07-12 08:59 | disposition home or self-care (01) ==
PROVIDERS: Emergency Provider Family Medicine; PCP Family Medicine
DX: L29.9 Pruritus, unspecified (principal)
CPT/HCPCS: 99283

== ENCOUNTER → 2023-07-26 16:07 | Outpatient (BNVA) | payer MEDICARE, MEDICAID, SELFPAY | PROVIDERS: PCP Family Medicine; Visit Provider Emergency Medicine | DX: R39.9 Unspecified symptoms and signs involving the genitourinary system (principal); N39.0 Urinary tract infection, site not specified; N30.90 Cystitis, unspecified without hematuria; N76.0 Acute vaginitis; B96.89 Other specified bacterial agents as the cause of diseases classified elsewhere | CPT/HCPCS: 81000; 87086 ==

== ENCOUNTER 2023-08-14 10:00 | Outpatient (RCR) | payer MEDICARE, SELFPAY | END 2023-08-26 23:59 | disposition home or self-care (01) | LOC: SPT 10:00 | PROVIDERS: PCP Family Medicine; Visit Provider Family Medicine | DX: H81.10 Benign paroxysmal vertigo, unspecified ear (principal) | CPT/HCPCS: 95992; 97161 ==

== ENCOUNTER → 2023-08-20 14:17 | Outpatient (BNVA) | payer MEDICARE, SELFPAY | PROVIDERS: PCP Family Medicine; Visit Provider Family Medicine | DX: R53.83 Other fatigue (principal); R79.89 Other specified abnormal findings of blood chemistry; M85.80 Other specified disorders of bone density and structure, unspecified site; R41.3 Other amnesia; E55.9 Vitamin D deficiency, unspecified; Z79.899 Other long term (current) drug therapy | CPT/HCPCS: 80053; 82306; 82607; 84443; 85025 ==

== ENCOUNTER → 2023-09-08 14:55 | Outpatient (BNVA) | payer MEDICARE, SELFPAY | PROVIDERS: PCP Family Medicine; Visit Provider Surgery | DX: K21.9 Gastro-esophageal reflux disease without esophagitis (principal); K44.9 Diaphragmatic hernia without obstruction or gangrene; R10.13 Epigastric pain; Z90.49 Acquired absence of other specified parts of digestive tract | CPT/HCPCS: 99214 ==

== ENCOUNTER → 2023-09-26 09:20 | Outpatient (BNVA) | payer MEDICARE, SELFPAY | PROVIDERS: PCP Family Medicine; Visit Provider Family Medicine | DX: R41.3 Other amnesia (principal); Z79.899 Other long term (current) drug therapy | CPT/HCPCS: 82607; 86592 ==

== ENCOUNTER → 2023-09-29 11:18 | Outpatient (BNVA) | payer MEDICARE, SELFPAY | PROVIDERS: PCP Family Medicine; Visit Provider Family Medicine | DX: R53.83 Other fatigue (principal) | CPT/HCPCS: 86592 ==

== ENCOUNTER → 2023-10-08 13:13 | Outpatient (BNVA) | payer MEDICARE, SELFPAY | PROVIDERS: PCP Family Medicine; Visit Provider Specialist | DX: Z96.651 Presence of right artificial knee joint (principal); M25.561 Pain in right knee | CPT/HCPCS: 73560; 73565; 99213 ==

== ENCOUNTER 2023-10-28 12:13 | Outpatient (CLI) | payer MEDICARE, SELFPAY ==
--- NOTE | 2023-10-28 13:00 | MR_ITS ---
WS: [id number] MRI HEAD WITH CONTRAST TECHNIQUE: Sagittal T1, T2 axial, T2 axial FLAIR, axial susceptibility weighted imaging, axial diffus ion weighted images, and coronal T2 images were obtained. Pre and post-T1 axial and post T1 coronal i mages. ADC and FSPGR images. CLINICAL INFORMATION: memory loss COMPARISON: None. FINDINGS: No evidence of restricted diffusion to suggest acute ischemia. Ventricular system and basal cisterns are patent. Mild small vessel changes. Moderate parenchymal volume loss worse in the frontal lobes bi laterally. Mild symmetric atrophy temporal lobes and hippocampal formations. Normal optic chiasm and pituitary infundibulum. No hemosiderin on the susceptibly weighted images. Normal posterior fossa. Normal vascular flow voids at the skull base. No extra-axial fluid collections. Paranasal sinuses are well aerated. Mastoid air cells are well aerated. No abnormal gadolinium enhancement. Normal optic chiasm and pituitary infundibulum. Normal dural yunior ous sinuses. MR/MR head wo/w con [id number] IMPRESSION: 1. No evidence of restricted diffusion to suggest acute ischemia. 2. Minimal small vessel changes with moderate parenchymal volume loss worse in the frontal lobes bilaterally. 3. No hemosiderin on susceptibility-weighted images. 4. No abnormal gadolinium enhancement. 5. Mild symmetric atrophy temporal lobes and hippocampal formations.
[2023-10-28] MEDS: gadobenate dimeglumine 20 mL vial IV (13:08)
== END 2023-10-28 12:14 | disposition home or self-care (01) ==
LOC: RAD 12:13
PROVIDERS: PCP Family Medicine; Visit Provider Family Medicine
DX: R41.3 Other amnesia (principal); G31.89 Other specified degenerative diseases of nervous system
CPT/HCPCS: 70553; 86592; A9577

== ENCOUNTER 2023-11-07 07:05 | Outpatient (RCR) | payer MEDICARE, SELFPAY | END 2023-11-17 23:59 | disposition home or self-care (01) | LOC: SPT 07:05 | PROVIDERS: PCP Family Medicine; Visit Provider Specialist | DX: M25.561 Pain in right knee (principal) | CPT/HCPCS: 97110; 97161 ==

== ENCOUNTER 2023-11-26 07:46 | Outpatient (CLI) | payer MEDICARE, SELFPAY ==
--- NOTE | 2023-11-26 09:00 | FL_ITS ---
WS: [id number] Barium swallow and esophagram, 11/26/2023 Clinical Data: Difficulty in swallowing Comparison: Esophagram with upper GI series, 02/26/2019 Fluoroscopy time: 1min [id number] # of spot films: 21 Findings: The patient swallowed the thick and thin barium, and it flowed through the hypopharynx without hesita tion. No stricture, mass, polyp or erosion was seen. The barium entered the esophagus and there was poor motility throughout. The distal esophagus was mod erately dilated. There is a moderate hiatal hernia with reflux. No ulcer, mass, polyp, erosion or fis iris was seen. The barium passed normally into the stomach. FL/FL barium swallow [id number] Impression: 1. Poor esophageal motility with dilatation of the distal esophagus. 2. Moderate hiatal hernia with reflux.
== END 2023-11-26 07:47 | disposition home or self-care (01) ==
PROVIDERS: PCP Family Medicine; Visit Provider Surgery
DX: R13.10 Dysphagia, unspecified (principal); R10.13 Epigastric pain; K21.9 Gastro-esophageal reflux disease without esophagitis; K44.9 Diaphragmatic hernia without obstruction or gangrene
CPT/HCPCS: 74220

== ENCOUNTER → 2023-12-15 15:22 | Outpatient (BNVA) | payer MEDICARE, SELFPAY | PROVIDERS: Visit Provider Surgery | DX: R10.13 Epigastric pain (principal); K44.9 Diaphragmatic hernia without obstruction or gangrene; K21.9 Gastro-esophageal reflux disease without esophagitis; R13.10 Dysphagia, unspecified | CPT/HCPCS: 99214 ==

== ENCOUNTER 2023-12-17 10:56 | Day surgery (SDC) | payer MEDICARE, SELFPAY ==
[2023-12-17 11:18] VITALS: BP 167/83; PULSE 78; RESP 16; TEMP 36.8; O2SAT 96; BMI 35.0
[2023-12-17] MEDS: sodium chloride 0.9% 1,000 ML 30 ML IV (11:31)
--- NOTE | 2023-12-17 11:39 | ANES.PREANE2 ---
Pre-Anesthetic Assessment Height/Weight: Height 1.63 m Weight 92.533 kg Temp Pulse Resp BP Pulse Ox O2 Del Method 98.2 F 78 16 167/83 96 Room Air 12/17/23 11:18 12/17/23 11:18 12/17/23 11:18 12/17/23 11:18 12/17/23 11:18 12/17/23 11:18 Preop Diagnosis: esophageal stricture, GERD Operation Date: 12/17/23 12:15 Proposed Procedures p EGD Dilation W/ Balloon 09244, R10.13 , K44.9(Not Applicable) - Donald Burt DO Familial anesthetic complications: none Was Beta Sanaz taken within 24 hours: N/A Was Clonidine taken within 24 hours: N/A Last intake: Intake Last Liquid Date 12/16/23 Last Liquid Time 19:30 Last Solid Date 12/16/23 Last Solid Time 17:30 Social No alcohol and No tobacco Exam alert, oriented x 3, clear to auscultation bilaterally and regular rate & rhythm Airway Submandibular: within normal limits Cervical ROM: within normal limits Mallampati: Class II Dentition: full History/ROS No significant history except as noted and No significant complaints Pulmonary None reported CV/HEM None reported None reported Hepatic None reported GI Gastroesophageal Reflux Disease and Hiatal Hernia Metabolic None reported Neuropsych None reported Anesthetic Plan ASA status: 2 Anesthesia: MAC Risk of > 500 ml blood loss (7ml/kg in children): No Other Pertinent Information none Medications/Allergies Home Medications Medication Instructions Recorded Confirmed Last Taken Type cyclosporine 0.05 % eye drops in a 1 drp ophthalmic (eye) BID 08/15/23 12/17/23 12/16/23 History dropperette (Restasis) bupropion HCl 150 mg 24 hr tablet, 150 mg PO QAM #30 tabs 12/10/23 12/17/23 12/17/23 Rx extended release (Wellbutrin XL) cyanocobalamin (vitamin B-12) 500 500 mcg PO DAILY 12/16/23 12/17/23 12/16/23 History mcg tablet (Vitamin B-12) pantoprazole 40 mg tablet,delayed 40 mg PO BID 12/16/23 12/17/23 12/16/23 History release Allergies Allergy/AdvReac Type Severity Reaction Status Date / Time methotrexate Allergy hives Verified 12/16/23 11:55 prednisone Allergy tachycardia Verified 12/16/23 11:55 Current Medications Generic Name Dose Route Start Last Admin Trade Name Yovani PRN Reason Stop Dose Admin Sodium Chloride 1,000 mls @ 30 mls/hr 12/17/23 11:00 12/17/23 11:31 Sodium Chloride 0.9% IV 12/18/23 10:59 30 mls/hr .Q24H GLORIA Administration PFSH Anesthesia Medical History Osteopenia BPPV (benign paroxysmal positional vertigo) Lichen sclerosus of vulva (~2022) complete excision of the area by Davis at [facility] [employer]; Atrophic vaginitis Differentiated vulvar intraepithelial neoplasia (dVIN) this was treated by [employer]- Davis at [facility] in 2022. Awaiting reports. History of nonmelanoma skin cancer Surgical History H/O blepharoplasty (~07/2023) Dr. Mayer at [facility] History of anterior colporrhaphy (~05/27/23) augmented with allograft and single incision mid urethral sling performed by Dell Wu laparoscopic cholecystectomy 03/31/23 Dr Burt Hx of inguinal hernia surgery 03/31/23 Laparoscopic repair of right femoral hernia with mesh- Dr Burt History of right knee joint replacement History of D&C History of bilateral tubal ligation History of cataract extraction with lens replacement Family History Mother Dementia Grandfather Cancer kidney Denies family history of Colon cancer Ovarian cancer Diabetes Hypercholesteremia Breast cancer Hypertension Uterine cancer Thyroid disease Stroke Social History Smoking and tobacco/nicotine status: never used tobacco/nicotine Data Anesthesia Cardiac Studies: No Data to Display
--- NOTE | 2023-12-17 13:32 | W.PM.OPSUD ---
Surgery/Procedure H&P Update DATE OF PROCEDURE: December 17, 2023 DATE H&P PERFORMED: 12/15/23 H&P UPDATE INFORMATION: I have reviewed H&P completed within last 30 days, I have examined patient prior to procedure and No changes to prior documentation PREOP DIAGNOSIS: esophageal stricture, GERD PLANNED PROCEDURE: Operation Date: 12/17/23 12:15 Proposed Procedures p EGD Dilation W/ Balloon 16002, R10.13 , K44.9(Not Applicable) - Donald Burt DO
[2023-12-17 13:53] VITALS: BP 135/85; PULSE 69; RESP 18; TEMP 36.3; O2SAT 95
--- NOTE | 2023-12-17 13:53 | ANE.PACU2 ---
Inpatient post-anesthesia follow up: Airway intact: Yes Vital signs: Temperature 97.4 F Pulse Rate 69 Respiratory Rate 18 Blood Pressure 135/85 Pulse Oximetry 95 Oxygen Delivery Me thod Room Air Oxygen Flow Rate Fraction of Inspir ed Oxygen Hydration adequate: Yes Nausea and vomiting: No Pain level: 1 Mental status: Baseline
[2023-12-17 14:04] VITALS: BP 122/49; PULSE 68; RESP 16; O2SAT 97
== END 2023-12-17 14:37 | disposition home or self-care (01) ==
PROVIDERS: PCP Family Medicine; Visit Provider Surgery
DX: R10.13 Epigastric pain (principal); K21.9 Gastro-esophageal reflux disease without esophagitis; K44.9 Diaphragmatic hernia without obstruction or gangrene; R13.10 Dysphagia, unspecified
CPT/HCPCS: 43239; 43249; 88305; J2704; J7030

== ENCOUNTER → 2024-01-02 10:54 | Outpatient (BNVA) | payer MEDICARE, SELFPAY | PROVIDERS: PCP Family Medicine; Visit Provider Surgery | DX: Z09 Encounter for follow-up examination after completed treatment for conditions other than malignant neoplasm (principal); R13.10 Dysphagia, unspecified; K44.9 Diaphragmatic hernia without obstruction or gangrene; K21.9 Gastro-esophageal reflux disease without esophagitis | CPT/HCPCS: 99214 ==

== ENCOUNTER 2024-02-04 07:15 | Outpatient (RCR) | payer MEDICARE, SELFPAY | END 2024-02-26 23:59 | disposition home or self-care (01) | LOC: SPT 07:15 | PROVIDERS: Visit Provider Family Medicine | DX: H81.10 Benign paroxysmal vertigo, unspecified ear (principal) | CPT/HCPCS: 95992; 97161 ==

== ENCOUNTER → 2024-02-09 14:46 | Outpatient (BNVA) | payer MEDICARE, SELFPAY | PROVIDERS: PCP Family Medicine; Visit Provider Family Medicine | DX: R79.89 Other specified abnormal findings of blood chemistry (principal) | CPT/HCPCS: 82607 ==

== ENCOUNTER → 2024-02-10 08:24 | Outpatient (BNVA) | payer MEDICARE, SELFPAY | PROVIDERS: PCP Family Medicine; Referring Provider Family Medicine; Visit Provider Psychiatry & Neurology Neurology | DX: R41.3 Other amnesia (principal); R53.83 Other fatigue; M85.80 Other specified disorders of bone density and structure, unspecified site; R29.818 Other symptoms and signs involving the nervous system | CPT/HCPCS: 36415; 82306; 82746; 83735; 99203 ==

== ENCOUNTER 2024-02-18 10:13 | Emergency (ER) | payer MEDICARE, SELFPAY ==
[2024-02-18 10:23] VITALS: BP 179/81; PULSE 79; RESP 16; TEMP 36.7; O2SAT 96; BMI 33.3
--- NOTE | 2024-02-18 10:35 | ECG_ITS ---
[facility]: 2024-[facility]18 Pat Name: Susie Gonzales Department: Room: Gender: Female Inclusion Manager: : 1950 Requested By: Farooq Goodman Order Number: [id number] Dee Dee MD: Norah Olivo M.D. Measurements Intervals [place] Rate: 78 P: 58 VT: 182 QRS: 13 QRSD: 90 T: 44 QT: 379 QTc: 433 Interpretive Statements SINUS RHYTHM Compared to ECG 01/30/2023 16:54:59 Myocardial infarct finding no longer present Electronically Signed On 02-18-2024 22:41:35 CDT by Norah Olivo M.D. [email or web address]
--- NOTE | 2024-02-18 10:35 | CT_ITS ---
WS: [id number] CT HEAD TECHNIQUE: Noncontrast CT of the head obtained from the skullbase to the vertex. CLINICAL INFORMATION: vertigo COMPARISON: MRI 10/28/2023 DLP: 1110.[address] scans at [facility] use at least one of these dose optimization techniques: automated e xposure control; mA and/or kV adjustment per patient size (includes targeted exams where dose is matc hed to clinical indication); or iterative reconstruction. FINDINGS: No evidence of intracranial hemorrhage or mass effect. Ventricular system and basal cisterns are lópez nt. Minimal small vessel changes with moderate parenchymal volume loss. No extra-axial fluid collecti ons. No evidence of mass or mass effect. Normal villegas-white differentiation. Paranasal sinuses and mastoid air cells are well aerated. .Normal visualized soft tissues. CT/CT head wo con* [id number] IMPRESSION: 1. No evidence of intracranial hemorrhage or mass effect. 2. No acute intracranial findings.
--- NOTE | 2024-02-18 11:04 | ED_ITS ---
HPI - Dizziness 2 General: Chief Complaint: Dizziness Stated Complaint: b/p is high(sent by bhumi) Time Seen by Provider: 02/18/24 10:34 History of Present Illness: HPI Narrative: 74-year-old female [facility] with complaint of dizziness and headache this morning began when she was bending over its reproducible by bending over when she is laying still she does not have any symptoms. She felt more like she was unsteady on her feet did not have any true vertigo like symptoms. She has had problems with vertigo in the past. She recently started vitamin D supplementation and took 1 2 days ago she is concerned that the vitamin D may have triggered this as well as constipation. She has not had any speech or vision difficulties. She has no other neurologic deficits. She has been a little nauseous when she gets episodes of feeling what she describes as dizziness but she has not vomited. Associated symptoms: Denies chest pain or chills Related Data Home Medications Medication Instructions Recorded Confirmed cyanocobalamin (vitamin B-12) 500 500 mcg PO DAILY 12/16/23 02/18/24 mcg tablet (Vitamin B-12) pantoprazole 40 mg tablet,delayed 40 mg PO DAILY 02/09/24 02/18/24 release docusate sodium 100 mg capsule 100 mg PO PRN PRN Constipation 02/10/24 02/18/24 bupropion HCl 150 mg 24 hr tablet, 150 mg PO QAM 02/18/24 02/18/24 extended release cholecalciferol (vitamin D3) 1,250 1 mcg PO Q7D 02/18/24 02/18/24 mcg (50,000 unit) capsule Previous Rx's Medication Instructions Recorded famotidine 40 mg tablet 40 mg PO DAILY #30 tabs 02/04/24 meclizine 25 mg tablet 25 mg PO QID PRN dizziness #14 tabs 02/18/24 Allergies Allergy/AdvReac Type Severity Reaction Status Date / Time methotrexate Allergy hives Verified 02/10/24 09:02 prednisone Allergy tachycardia Verified 02/10/24 09:02 Review of Systems 2 Const: Denies: fever(s) or chills Card: Denies: chest pain Resp: Denies: dyspnea GI: Denies: abdominal pain : Denies: dysuria, urinary frequency or urinary urgency Musc: Denies: neck pain or back pain Skin/Breast: Denies: rash PFSH ED 2 PFSH: Medical History Osteopenia BPPV (benign paroxysmal positional vertigo) Lichen sclerosus of vulva (~2022) complete excision of the area by Davis at [facility] [employer]Onc; Atrophic vaginitis Differentiated vulvar intraepithelial neoplasia (dVIN) this was treated by [employer]- Davis at [facility] in 2022. Awaiting reports. History of nonmelanoma skin cancer Surgical History H/O blepharoplasty (~07/2023) Dr. Mayer at [facility] History of anterior colporrhaphy (~05/27/23) augmented with allograft and single incision mid urethral sling performed by Dell Wu laparoscopic cholecystectomy 03/31/23 Dr Burt Hx of inguinal hernia surgery 03/31/23 Laparoscopic repair of right femoral hernia with mesh- Dr Burt History of right knee joint replacement History of D&C History of bilateral tubal ligation History of cataract extraction with lens replacement Family History Mother Dementia Grandfather Cancer kidney Denies family history of Colon cancer Ovarian cancer Diabetes Hypercholesteremia Breast cancer Hypertension Uterine cancer Thyroid disease Stroke Social History Smoking and tobacco/nicotine status: never used tobacco/nicotine Physical Exam 2 Const: GENERAL APPEARANCE: cooperative ORIENTATION/CONSCIOUSNESS: Yes awake, Yes oriented to person, Yes oriented to place and Yes oriented to time HENMT: COMMON NORMALS: normocephalic, atraumatic and hearing grossly normal bilaterally HEAD & SCALP: normocephalic and atraumatic Resp: COMMON NORMALS: normal respiratory effort, No retractions, No use of accessory muscles and clear to auscultation bilaterally AUSCULTATION: clear to auscultation bilaterally Cardio: COMMON NORMALS: regular rate, regular rhythm and No murmurs present (Cardio) RATE: regular rate RHYTHM: regular rhythm GI: COMMON NORMALS: Soft to palpation and No hepatosplenomegaly present A USCULTATION: Yes normoactive bowel sounds PALPATION: Yes Soft to palpation, No Tenderness to palpation present (GI), No Guarding due to palpation present (GI) and Yes No hepatosplenomegaly present Extremity: COMMON NORMALS: normal to inspection, capillary refill normal, no clubbing, cyanosis or edema, no calf tenderness and no pedal edema Neuro: SENSORIUM/ORIENTATION: Yes oriented to person, Yes oriented to place and Yes oriented to time Skin: COMMON NORMALS: no rashes or lesions noted GENERAL SKIN EXAM: no rashes or lesions noted Course 2 Vital Signs: Vital signs: Vital Signs Temperature 98.0 F 02/18/24 10:23 Pulse Rate 75 02/18/24 13:50 Respiratory Rate 18 02/18/24 13:50 Blood Pressure 136/91 02/18/24 13:50 Pulse Oximetry 98 02/18/24 13:50 Oxygen Delivery Me thod Room Air 02/18/24 10:23 MDM - Dizziness Medical Decision Making Patient has dizziness very positional and worse when she leans over she does not have any hypotension. She is feeling much better at this point she like to go home she has no focal neurologic deficits no signs of a posterior stroke condition and NIH under 0 she is not ataxic we ambulated her without difficulty. Will discharge patient home meclizine to use as needed follow-up as needed Lab Data 02/18/24 11:12 02/18/24 11:[address] 02/18/24 10:35 IMPRESSION: 1. No evidence of intracranial hemorrhage or mass effect. 2. No acute intracranial findings. Laboratory Results WBC 5.29 10^3/uL (3.29-11.43) 02/18/24 11:12 Corrected WBC Cancelled 02/18/24 10:44 RBC 4.33 10^6/uL (3.85-5.65) 02/18/24 11:12 Hgb 12.70 g/dL (11.27-16.99) 02/18/24 11:12 Hct 38.3 % (36-47) 02/18/24 11:12 MCV 88.5 fl (85-98) 02/18/24 11:12 MCH 29.3 pg (27-33) 02/18/24 11:12 MCHC 33.2 g/dL (30-55) 02/18/24 11:12 RDW 12.7 % (12.1-15.1) 02/18/24 11:12 Plt Count 181 10^3/cmm (157-399) 02/18/24 11:12 MPV 11.2 fL (7.4-10.4) H 02/18/24 11:12 Gran % Cancelled 02/18/24 10:44 Neut % (Auto) 55.7 % 02/18/24 11:12 Lymph % (Auto) 31.4 % 02/18/24 11:12 Dubois % (Auto) 7.4 % 02/18/24 11:12 Eos % (Auto) 4.5 % 02/18/24 11:12 Baso % (Auto) 0.8 % 02/18/24 11:12 Neut # (Auto) 2.95 10^3/uL (1.8-7.7) 02/18/24 11:12 Lymph # (Auto) 1.7 10^3/uL (0.8-4.8) 02/18/24 11:12 Dubois # (Auto) 0.4 10^3/uL (0.2-0.9) 02/18/24 11:12 Eos # (Auto) 0.2 10^3/uL (0.0-0.8) 02/18/24 11:12 Baso # (Auto) 0.0 10^3/uL (0.0-0.1) 02/18/24 11:12 Absolute Gran (auto) Cancelled 02/18/24 10:44 Nucleated RBC % (auto) 0 % 02/18/24 11:12 Nucleated RBCs # 0.0 /100WBC 02/18/24 11:12 Sodium 139 mmol/L (136-145) 02/18/24 11:12 Potassium 4.3 mmol/L (3.5-5.1) 02/18/24 11:12 Chloride 104 mmol/L (98-107) 02/18/24 11:12 Carbon Dioxide 25 mmol/L (22-29) 02/18/24 11:12 Anion Gap 14.3 (5-19) 02/18/24 11:12 BUN 15 mg/dL (8-23) 02/18/24 11:12 Creatinine 1.1 mg/dL (0.5-0.9) H 02/18/24 11:12 GFR Calculation Not Reportable 02/18/24 11:12 Glucose 98 mg/dL (65-115) 02/18/24 11:12 Calculated Osmolality 289 mOsm/kg (285-295) 02/18/24 11:12 Calcium 8.9 mg/dL (8.5-10.5) 02/18/24 11:12 Total Bilirubin 1.0 mg/dL (0.15-1.2) 02/18/24 11:12 AST 20 U/L (0-32) 02/18/24 11:12 ALT 13 U/L (0-33) 02/18/24 11:12 Alkaline Phosphatase 88 U/L (35-105) 02/18/24 11:12 Total Protein 6.4 g/dL (6.6-8.7) L 02/18/24 11:12 Albumin 4.1 g/dL (3.5-5.2) 02/18/24 11:12 Globulin 2.3 g/dL (1.3-4.6) 02/18/24 11:12 All radiology interpretation(s) finalized by discharge Discharge Plan Discharge Patient Disposition: Home Clinical Impression: Benign paroxysmal positional vertigo, Benign essential HTN Condition: Stable Prescriptions: New meclizine 25 mg tablet 25 mg PO QID PRN (Reason: dizziness) Qty: 14 0RF No Action pantoprazole 40 mg tablet,delayed release (DR/EC) 40 mg PO DAILY docusate sodium 100 mg capsule 100 mg PO PRN PRN (Reason: Constipation) famotidine 40 mg tablet 40 mg PO DAILY Qty: 30 0RF cyanocobalamin (vitamin B-12) [Vitamin B-12] 500 mcg Tablet 500 mcg PO DAILY bupropion HCl 150 mg tablet extended release 24 hr 150 mg PO QAM cholecalciferol (vitamin D3) 1,250 mcg (50,000 unit) capsule 1 mcg PO Q7D Discharge Orders: Discharge ED (Routine); Ordered 02/18/24 Ordered By: Farooq Keys Referrals: Kaley Gonzalez MD [Primary Care Provider] - Discharge Diet: Usual diet Discharge Activity: Resume usual activity Patient Instructions: Opioid Safety, Pain Management Activity Restrictions/Additional Instructions: Thank you for choosing [facility] for your healthcare needs today. It is very important that you follow up as instructed or that you return to the Emergency Department should you have concerns or if your condition changes or worsens in any way. You were seen in the emergency room with dizziness. It was very much tied to to position. Your blood pressure was also noticed to be elevated. Blood pressure improved on its own. Recommend to continue current medication you can meclizine as needed and follow-up with your doctor within the next week to reevaluate blood pressure. If your symptoms worsen or change recheck Coding Level of Care Code ED Washcoat Wiper for Cris Wyatt NIH stroke score NIHSS Level Of Consciousness - 1a: 0 Level Of Consciousness Questions - 1b: Both Correct Level Of Consciousness Commands - 1c: Both Correct Best Gaze - 2: Normal Visual Davies - 3: No Visual Loss Facial Palsy - 4: Normal Motor Arm Right - 5: No Drift Motor Arm Left - 5: No Drift Motor Leg Right - 6: No Drift Motor Leg Left - 6: No Drift Limb Ataxia - 7: Absent Sensory - 8: Normal Best Language - 9: No Aphasia Dysarthia - 10: Normal Extinction And Inattention - 11: 0 Score Total Score: 0
[2024-02-18 11:19] LABS: Basophils % 0.8 %; Eosinophils # 0.2 10^3/uL (0.0-0.8); Eosinophils % 4.5 %; Hematocrit 38.3 % (36-47); Lymphocytes # 1.7 10^3/uL (0.8-4.8); Lymphocytes % 31.4 %; Mean Corpuscular HGB Conc 33.2 g/dL (30-55); Mean Corpuscular Hemoglobin 29.3 pg (27-33); Mean Corpuscular Volume 88.5 fl (85-98); Mean Platelet Volume 11.2 fL (7.4-10.4); Monocytes # 0.4 10^3/uL (0.2-0.9); Monocytes % 7.4 %; Neutrophils # 2.95 10^3/uL (1.8-7.7); Neutrophils % 55.7 %; Nucleated Red Blood Cells % 0 %; Platelet Count 181 10^3/cmm (157-399); Red Blood Count 4.33 10^6/uL (3.85-5.65); Red Cell Distribution Width 12.7 % (12.1-15.1); White Blood Count 5.29 10^3/uL (3.29-11.43)
[2024-02-18 11:27] VITALS: BP 179/80; PULSE 81; O2SAT 96
[2024-02-18 11:36] LABS: Alanine Aminotransferase 13 U/L (0-33); Albumin Level 4.1 g/dL (3.5-5.2); Alkaline Phosphatase 88 U/L (35-105); Aspartate Amino Transferase 20 U/L (0-32); Blood Urea Nitrogen 15 mg/dL (8-23); Calcium 8.9 mg/dL (8.5-10.5); Carbon Dioxide 25 mmol/L (22-29); Chloride 104 mmol/L (98-107); Creatinine Clr Calc Pharmacy 50.6849; Globulin 2.3 g/dL (1.3-4.6); Glucose 98 mg/dL (65-115); Osmolality Calculated 289 mOsm/kg (285-295); Sodium 139 mmol/L (136-145); Total Protein 6.4 g/dL (6.6-8.7)
[2024-02-18 11:45] LABS: Anion Gap 14.3 (5-19); Potassium 4.3 mmol/L (3.5-5.1)
[2024-02-18 12:00] VITALS: BP 149/83; PULSE 71; RESP 29; O2SAT 97
[2024-02-18 13:50] VITALS: BP 136/91; PULSE 75; RESP 18; O2SAT 98
== END 2024-02-18 13:51 | disposition home or self-care (01) ==
PROVIDERS: Emergency Provider Family Medicine; PCP Family Medicine
DX: H81.10 Benign paroxysmal vertigo, unspecified ear (principal); I10 Essential (primary) hypertension
CPT/HCPCS: 70450; 80053; 85025; 93005; 99284

== ENCOUNTER → 2024-02-20 09:17 | Outpatient (BNVA) | payer MEDICARE, SELFPAY | PROVIDERS: PCP Family Medicine; Visit Provider Nurse Practitioner Family | DX: L57.0 Actinic keratosis (principal); D22.5 Melanocytic nevi of trunk; L81.4 Other melanin hyperpigmentation; L57.8 Other skin changes due to chronic exposure to nonionizing radiation; L82.1 Other seborrheic keratosis | CPT/HCPCS: 17000; 99213 ==

== ENCOUNTER → 2024-03-22 14:06 | Outpatient (BNVA) | payer MEDICARE, SELFPAY | PROVIDERS: PCP Family Medicine; Visit Provider Nurse Practitioner Family | DX: F42.4 Excoriation (skin-picking) disorder (principal); L72.0 Epidermal cyst; Z85.828 Personal history of other malignant neoplasm of skin; L57.0 Actinic keratosis | CPT/HCPCS: 17000; 99213 ==

== ENCOUNTER → 2024-04-07 13:06 | Outpatient (BNVA) | payer MEDICARE, SELFPAY | PROVIDERS: PCP Family Medicine; Visit Provider Dermatology | DX: L57.8 Other skin changes due to chronic exposure to nonionizing radiation (principal); L82.1 Other seborrheic keratosis; Z08 Encounter for follow-up examination after completed treatment for malignant neoplasm; Z85.828 Personal history of other malignant neoplasm of skin; D48.5 Neoplasm of uncertain behavior of skin; L57.0 Actinic keratosis | CPT/HCPCS: 11102; 17000; 99213 ==

== ENCOUNTER → 2024-04-17 13:02 | Outpatient (BNVA) | payer MEDICARE, SELFPAY | PROVIDERS: PCP Family Medicine | DX: R39.9 Unspecified symptoms and signs involving the genitourinary system (principal); R14.0 Abdominal distension (gaseous) | CPT/HCPCS: 81000 ==

== ENCOUNTER → 2024-05-04 14:27 | Outpatient (BNVA) | payer MEDICARE, SELFPAY | PROVIDERS: PCP Family Medicine; Visit Provider Family Medicine | DX: I10 Essential (primary) hypertension (principal); R53.83 Other fatigue | CPT/HCPCS: 80053; 84443 ==

== ENCOUNTER → 2024-07-19 14:47 | Outpatient (BNVA) | payer MEDICARE, SELFPAY | PROVIDERS: PCP Family Medicine; Visit Provider Family Medicine | DX: R00.2 Palpitations (principal); R55 Syncope and collapse | CPT/HCPCS: 85025 ==

== ENCOUNTER → 2024-07-20 12:01 | Outpatient (BNVA) | payer MEDICARE, SELFPAY | PROVIDERS: PCP Family Medicine; Visit Provider Family Medicine | DX: R00.2 Palpitations (principal); R55 Syncope and collapse | CPT/HCPCS: 80053; 83735; 84443; 85025 ==

== ENCOUNTER → 2024-08-03 13:15 | Outpatient (BNVA) | payer MEDICARE, SELFPAY | PROVIDERS: PCP Family Medicine; Referring Provider Family Medicine; Visit Provider Surgery | DX: R13.10 Dysphagia, unspecified (principal) | CPT/HCPCS: 99214 ==

== ENCOUNTER 2024-08-12 07:26 | Day surgery (SDC) | payer MEDICARE, SELFPAY ==
[2024-08-12 07:49] VITALS: BP 182/78; PULSE 55; RESP 17; TEMP 36.2; O2SAT 96; BMI 33.3
--- NOTE | 2024-08-12 07:52 | W.PM.OPSUD ---
Surgery/Procedure H&P Update DATE OF PROCEDURE: August 12, 2024 DATE H&P PERFORMED: 08/03/24 H&P UPDATE INFORMATION: I have reviewed H&P completed within last 30 days, I have examined patient prior to procedure, No changes to prior documentation, Changes to prior documentation as noted here and Risks and benefits of the procedure reviewed PLANNED PROCEDURE: Operation Date: 08/12/24 09:30 Proposed Procedures p EGD Dilation W/ Balloon 18263 R13.10(Not Applicable) - Jamir Meléndez MD
[2024-08-12] MEDS: sodium chloride 0.9% 250 ML 30 ML IV (07:59)
--- NOTE | 2024-08-12 08:16 | ANES.PREANE2 ---
Pre-Anesthetic Assessment Height/Weight: Height 1.65 m Weight 90.718 kg Temp Pulse Resp BP Pulse Ox O2 Del Method 97.2 F L 55 L 17 182/78 96 Room Air 08/12/24 07:49 08/12/24 07:49 08/12/24 07:49 08/12/24 07:49 08/12/24 07:49 08/12/24 07:49 Preop Diagnosis: dysphagia Operation Date: 08/12/24 09:30 Proposed Procedures p EGD Dilation W/ Balloon 72714 R13.10(Not Applicable) - Jamir Meléndez MD Familial anesthetic complications: none Was Beta Sanaz taken within 24 hours: Yes Was Clonidine taken within 24 hours: N/A Last intake: Intake Last Liquid Date 08/11/24 Last Liquid Time 20:00 Last Solid Date 08/11/24 Last Solid Time 17:00 Social No alcohol and No tobacco Exam alert, oriented x 3, clear to auscultation bilaterally and regular rate & rhythm Airway Submandibular: within normal limits Cervical ROM: within normal limits Mallampati: Class III Dentition: full Comments: Comments: small mouth opening Pulmonary None reported CV/HEM Hypertension None reported Hepatic None reported GI Gastroesophageal Reflux Disease Metabolic None reported Musc/skel None reported Neuropsych None reported Anesthetic Plan ASA status: 3 Anesthesia: MAC Medications/Allergies Home Medications ?Medication ?Instructions ?Recorded ?Confirmed ?Last Taken ?Type cyanocobalamin (vitamin B-12) 500 500 mcg PO DAILY 12/16/23 08/12/24 08/11/24 History mcg tablet (Vitamin B-12) automatic blood pressure cuff #1 ea 05/04/24 08/09/24 Unknown Rx mupirocin 2 % topical ointment 1 applic topical BID #15 grams 05/04/24 08/12/24 Unknown Rx pantoprazole 40 mg tablet,delayed 40 mg PO DAILY #30 tabs 05/14/24 08/12/24 08/11/24 Rx release fluticasone propionate 50 2 spray intranasal DAILY #16 grams 06/21/24 08/12/24 Unknown Rx mcg/actuation nasal spray,suspension ibuprofen 800 mg tablet 800 mg PO Q8H PRN pain #30 tabs 06/21/24 08/12/24 Unknown Rx ipratropium bromide 21 mcg (0.03 2 spray intranasal BID #30 mL 06/21/24 08/12/24 Unknown Rx %) nasal spray propranolol 60 mg capsule,24 60 mg PO DAILY #30 caps 06/21/24 08/12/24 08/12/24 Rx hr,extended release dicyclomine 20 mg tablet 20 mg PO BID abdominal pain #60 08/06/24 08/12/24 08/11/24 Rx tabs pantoprazole 40 mg tablet,delayed 40 mg PO BID #60 tabs 08/12/24 Unknown Rx release Allergies Allergy/AdvReac Type Severity Reaction Status Date / Time methotrexate Allergy hives Verified 08/12/24 07:46 prednisone Allergy tachycardia Verified 08/12/24 07:46 Current Medications Generic Name Dose Route Start Last Admin Trade Name Freq PRN Reason Stop Dose Admin Sodium Chloride 250 mls @ 30 mls/hr 08/12/24 07:45 08/12/24 07:59 Sodium Chloride 0.9% IV 30 mls/hr .Q8H20M GLORIA Administration PFSH Anesthesia Medical History Osteopenia BPPV (benign paroxysmal positional vertigo) Lichen sclerosus of vulva (~2022) complete excision of the area by Davis at [facility] [employer]/Onc; Atrophic vaginitis Differentiated vulvar intraepithelial neoplasia (dVIN) this was treated by [employer]/Onc- Davis at [facility] in 2022. Awaiting reports. History of nonmelanoma skin cancer Surgical History Hx of colonoscopy with polypectomy 02/2023 History of esophagogastroduodenoscopy (EGD) 02/2023 H/O blepharoplasty (~07/2023) Dr. Mayer at [facility] History of anterior colporrhaphy (~05/27/23) augmented with allograft and single incision mid urethral sling performed by Dell Hx laparoscopic cholecystectomy 03/31/23 Dr Burt Hx of inguinal hernia surgery 03/31/23 Laparoscopic repair of right femoral hernia with mesh- Dr Burt History of right knee joint replacement History of D&C History of bilateral tubal ligation History of cataract extraction with lens replacement Family History Mother Dementia Grandfather Cancer kidney Denies family history of Colon cancer Ovarian cancer Diabetes Hypercholesteremia Breast cancer Hypertension Uterine cancer Thyroid disease Stroke Social History Smoking and tobacco/nicotine status: never used tobacco/nicotine Data Anesthesia Cardiac Studies: No Data to Display
[2024-08-12 08:45] VITALS: BP 109/60; PULSE 56; RESP 18; TEMP 36.1; O2SAT 95
[2024-08-12 09:10] VITALS: BP 142/71; PULSE 52; RESP 18; O2SAT 96
--- NOTE | 2024-08-12 12:52 | ANE.PACU2 ---
Inpatient post-anesthesia follow up: Airway intact: Yes Vital signs: Temperature 97.0 F Pulse Rate 52 Respiratory Rate 18 Blood Pressure 142/71 Pulse Oximetry 96 Oxygen Delivery Me thod Room Air Oxygen Flow Rate Fraction of Inspir ed Oxygen Hydration adequate: Yes Nausea and vomiting: No Pain level: 2 Mental status: Baseline
== END 2024-08-12 09:30 | disposition home or self-care (01) ==
PROVIDERS: PCP Family Medicine; Visit Provider Surgery
DX: K29.70 Gastritis, unspecified, without bleeding (principal); R13.10 Dysphagia, unspecified; I10 Essential (primary) hypertension; K21.9 Gastro-esophageal reflux disease without esophagitis; Z79.899 Other long term (current) drug therapy; Z88.8 Allergy status to other drugs, medicaments and biological substances; Z86.0100 Personal history of colon polyps, unspecified; K44.9 Diaphragmatic hernia without obstruction or gangrene
CPT/HCPCS: 43239; 88305; J2704; J7050

== ENCOUNTER → 2024-08-31 12:47 | Outpatient (BNVA) | payer MEDICARE, SELFPAY | PROVIDERS: PCP Family Medicine; Visit Provider Surgery | DX: Z09 Encounter for follow-up examination after completed treatment for conditions other than malignant neoplasm (principal) | CPT/HCPCS: 99213 ==

== ENCOUNTER → 2024-10-06 15:01 | Outpatient (BNVA) | payer MEDICARE, SELFPAY | PROVIDERS: PCP Family Medicine; Visit Provider Specialist | DX: Z96.651 Presence of right artificial knee joint (principal) | CPT/HCPCS: 73560; 73565; 99213 ==

== ENCOUNTER → 2024-11-22 12:37 | Outpatient (BNVA) | payer MEDICARE, SELFPAY | PROVIDERS: PCP Family Medicine; Visit Provider Dermatology | DX: L82.1 Other seborrheic keratosis (principal); Q82.5 Congenital non-neoplastic nevus; D22.5 Melanocytic nevi of trunk; Z08 Encounter for follow-up examination after completed treatment for malignant neoplasm; Z85.828 Personal history of other malignant neoplasm of skin; L57.0 Actinic keratosis | CPT/HCPCS: 11102; 17000; 99213 ==

== ENCOUNTER → 2024-12-01 14:49 | Outpatient (BNVA) | payer MEDICARE, SELFPAY | PROVIDERS: PCP Family Medicine; Visit Provider Family Medicine | DX: R53.83 Other fatigue (principal); M85.80 Other specified disorders of bone density and structure, unspecified site; R79.89 Other specified abnormal findings of blood chemistry; E55.9 Vitamin D deficiency, unspecified | CPT/HCPCS: 82306; 82607 ==

== ENCOUNTER → 2024-12-15 08:16 | Outpatient (BNVA) | payer MEDICARE, SELFPAY | PROVIDERS: PCP Family Medicine; Visit Provider Dermatology | DX: L82.1 Other seborrheic keratosis (principal) | CPT/HCPCS: 11604; 12032; 17000; 99213 ==

== ENCOUNTER → 2025-03-14 12:27 | Outpatient (BNVA) | payer MEDICARE, SELFPAY | PROVIDERS: PCP Family Medicine; Visit Provider Dermatology | DX: L57.0 Actinic keratosis (principal); L82.1 Other seborrheic keratosis; D22.5 Melanocytic nevi of trunk; Z86.006 Personal history of melanoma in-situ; Z08 Encounter for follow-up examination after completed treatment for malignant neoplasm; Z85.828 Personal history of other malignant neoplasm of skin | CPT/HCPCS: 17000; 99214 ==

== ENCOUNTER → 2025-03-16 09:34 | Outpatient (BNVA) | payer MEDICARE, SELFPAY | PROVIDERS: PCP Family Medicine; Visit Provider Nurse Practitioner | DX: R39.9 Unspecified symptoms and signs involving the genitourinary system (principal); N30.01 Acute cystitis with hematuria | CPT/HCPCS: 81000; 87086 ==

== ENCOUNTER → 2025-03-23 11:04 | Outpatient (BNVA) | payer MEDICARE, SELFPAY | PROVIDERS: PCP Family Medicine; Visit Provider Emergency Medicine | DX: R39.89 Other symptoms and signs involving the genitourinary system (principal) | CPT/HCPCS: 81000; 87086 ==

== ENCOUNTER → 2025-04-08 08:43 | Outpatient (BNVA) | payer MEDICARE, SELFPAY | PROVIDERS: PCP Family Medicine; Visit Provider Family Medicine | DX: R39.9 Unspecified symptoms and signs involving the genitourinary system (principal) | CPT/HCPCS: 81000 ==